=== PATIENT | female | born 1955 | race African-American/Black ===

== ENCOUNTER 2023-01-11 22:31 | Emergency (ER) | payer OTHER, MEDICARE ==
[2023-01-11] MEDS ORDERED: NA CHLORIDE 0.9% 1,000 ML ONE (23:19)
[2023-01-11] MEDS ORDERED: ONDANSETRON 4 MG/2 ML VIAL ONE (23:19)
[2023-01-11] MEDS ORDERED: PANTOPRAZOLE 40 MG INJ ONE (23:30)
[2023-01-11 23:40] LABS: Absolute Lymphocytes (CBC) 0.3 K/uL (0.7-4.9); Hematocrit 42.8 % (36.0-45.0); Lymphocytes % 3.6 % (15.3-44.8); MCV 96.1 fL (80-100); Protime INR 0.98; RBC Red Blood Cell Count 4.45 M/uL (3.86-4.86)
[2023-01-11 23:56] LABS: Urine Bacteria None Seen /HPF (<20); Urine Bilirubin NEGATIVE (Negative); Urine Blood Negative (Negative); Urine Clarity Extremely Turbid (Clear); Urine Color Light-Yellow (Yellow); Urine Glucose NEGATIVE (Negative); Urine Mucus Slight /HPF (None Seen); Urine Protein 1+ (Negative); Urine RBC None Seen /HPF (None Seen); Urine Urobilinogen Normal (Normal); Urine pH 5.5 (5.0-7.0)
[2023-01-11 23:58] LABS: Albumin 3.4 g/dL (3.4-5.0); Bilirubin Direct 0.2 mg/dL (0-0.2); Bilirubin Indirect, Calculated 0.3 mg/dL (0.2-0.8); Bilirubin Total 0.5 mg/dL (0.2-1.0); Potassium 4.1 mEq/L (3.5-5.1); Protein, Total 8.2 g/dL (6.4-8.2); Troponin High Sensitivity 4.6 pg/mL (<58.9)
[2023-01-12 01:07] LABS: Blood Morphology Comment NOT SEEN (NOT SEEN); Platelet Estimate ADEQ
--- NOTE | 2023-01-12 01:27 | ER ---
Nurse's Notes [facility] Name: Marlyn Christy Age: 67 yrs Sex: Female : 1955 Arrival Date: 01/11/2023 Time: 22:31 Bed 5 Private MD: Diagnosis: Vomiting;Diarrhea, unspecified;Obesity, unspecified;Bandemia Presentation: 01/11 22:52 Chief complaint: Patient states: I haven't been able to hold anything down. I have been kd3 vomiting since this morning. I do not have any abdominal pain. I have had diarrhea twice today. I am not sure if i ate something bad yesterday. Coronavirus screen: Vaccine status: Patient reports receiving the 2nd dose of the covid vaccine. Ebola Screen: No symptoms or risks identified at this time. Initial Sepsis Screen: Does the patient meet any 2 criteria? No. Patient's initial sepsis screen is negative. Does the patient have a suspected source of infection? No. Patient's initial sepsis screen is negative. Risk Assessment: Do you want to hurt yourself or someone else? Patient reports no desire to harm self or others. Onset of symptoms was January 11, 2023. 22:52 Method Of Arrival: Ambulatory kd3 22:52 Acuity: BRITANY 3 kd3 Triage Assessment: 22:54 General: Appears uncomfortable, Behavior is calm, cooperative. Pain: Denies pain. GI: kd3 Reports diarrhea, nausea, vomiting, since yesterday. Historical: - Allergies: 22:54 Atenolol; kd3 22:54 Aspirin; kd3 22:54 bismuth subsalicylate; kd3 22:54 Hydrocodone-Acetaminophen; kd3 22:54 isradipine; kd3 22:54 METOCLOPRAMIDE; kd3 22:54 Niacin; kd3 22:54 Sulfa (Sulfonamide Antibiotics); kd3 22:54 Tramadol HCl; kd3 22:54 Triamterene; kd3 22:54 Verapamil; kd3 22:54 Ibuprofen; kd3 22:54 PENICILLINS; kd3 22:54 sulfamethoxazole-trimethoprim; kd3 - PMHx: 23:33 Aneurysm; rv - Immunization history:: Adult Immunizations up to date. - Social history:: Smoking status: Patient denies any tobacco usage or history of. Screenin:30 [facility] ED Fall Risk Assessment (Adult) History of falling in the last 3 months, rv including since admission No falls in past 3 months (0 pts) Confusion or Disorientation No (0 pts) Intoxicated or Sedated No (0 pts) Impaired Gait No (0 pts) Mobility Assist Device Used No (0 pt) Altered Elimination No (0 pt) Score/Fall Risk Level 0 - 2 = Low Risk Oriented to surroundings, Maintained a safe environment, Educated pt \T\ family on fall prevention, incl call for assistance when getting out of bed, Assessed \T\ reinforced patient's understanding of fall precautions, Provided non-skid footwear, Hourly rounding (assess needs \T\ fall precautionary measures) done, Used ambulatory aids as needed (educated on \T\ assisted with), Used gait belt as appropriate. Abuse screen: Denies threats or abuse. Denies injuries from another. Nutritional screening: No deficits noted. Tuberculosis screening: No symptoms or risk factors identified. Assessment: 23:31 GI: Abdomen is round non-distended. rv Vital Signs: 22:50 BP 153 / 91; Pulse 116; Resp 19; Temp 99.9(O); Pulse Ox 98% on R/A; Weight 113.4 kg; kd3 Height 5 ft. 4 in. ; 23:29 BP 121 / 81; Pulse 96; Resp 16; Pulse Ox 96% on R/A; rv 07/ 00:20 BP 128 / 68; Pulse 88; Resp 18; Pulse Ox 97% ; ll3 01:30 BP 135 / 69; Pulse 85; Resp 20; Pulse Ox 98% on R/A; ll3 01/11 22:50 Body Mass Index 42.91 (113.40 kg, 162.56 cm) kd3 ED Course: 01/11 22:36 Patient arrived in ED. kj1 22:54 Triage completed. kd3 22:54 Arm band placed on right wrist. kd3 22:55 No provider procedures requiring assistance completed. Inserted saline lock: 20 gauge rv in right antecubital area, using aseptic technique. Blood collected. 22:59 Avery Alcazar MD is Attending Physician. gisselle 23:06 Sami Ward RN is Primary Nurse. rv 23:29 Basic Metabolic Panel Sent. rv 23:29 CBC with Diff Sent. rv 23:29 LFT's Sent. rv 23:29 Magnesium Sent. rv 23:29 NT PRO-BNP Sent. rv 23:29 PT-INR Sent. rv 23:29 Troponin HS Sent. rv 23:30 Patient has correct armband on for positive identification. Bed in low position. Call rv light in reach. Side rails up X 1. Client placed on continuous cardiac and pulse oximetry monitoring. NIBP monitoring applied. awake overnight monitor on. 01/12 00:25 Abdomen Acute Series XRAY In Process Unspecified. EDMS 01:25 Link Love MD is Referral Physician. gisselle 03:11 IV discontinued, intact, bleeding controlled, No redness/swelling at site. Pressure ll3 dressing applied. Administered Medications: 01/11 23:28 Drug: Ondansetron IVP 8 mg Route: IVP; Site: right antecubital; rv 01/12 03:08 Follow up: Response: No adverse reaction ll3 01/11 23:29 Drug: NS 0.9% IV 1000 ml Route: IV; Rate: 1 bolus; Site: right antecubital; rv 01/12 03:10 Follow up: Response: No adverse reaction; IV Status: Completed infusion; IV Intake: ll3 1000ml 01/11 23:29 Not Given (NOT AVAILABLEe): Famotidine IVP 20 mg IVP once; dilute with 10 mL 0.9% NaCl; rv give over 2 minutes 23:29 Drug: Pantoprazole IVP 40 mg Route: IVP; Site: right antecubital; rv 01/12 03:08 Follow up: Response: No adverse reaction ll3 01:32 Drug: NS 0.9% IV 1000 ml Route: IV; Rate: 1 bolus; Site: right antecubital; rv 03:08 Follow up: Response: No adverse reaction; IV Status: Completed infusion; IV Intake: ll3 1000ml Medication: 01/11 23:30 VIS not applicable for this client. rv Intake: 01/12 03:08 IV: 1000ml; Total: 1000ml. ll3 03:10 IV: 1000ml; Total: 2000ml. ll3 Outcome: 01:26 Discharge ordered by . gisselle 03:11 Discharged to home ambulatory, with family. ll3 03:11 Condition: stable 03:11 Discharge instructions given to patient, family, Instructed on discharge instructions, follow up and referral plans. medication usage, Demonstrated understanding of instructions, follow-up care, medications, Prescriptions given X 2. 03:13 Patient left the ED. ll3 Signatures: Dispatcher [employer] EDMS Avery Alcazar MD MD cha Vicente, Ronaldo, RN RN Lori Otero1 Teresa Edouard RN RN ll3 Gisel Camacho RN RN kd3
--- NOTE | 2023-01-12 01:27 | EDPHYS ---
Physician Documentation [facility] Name: Marlyn Christy Age: 67 yrs Sex: Female : 1955 Arrival Date: 01/11/2023 Time: 22:31 Bed 5 Private MD: JONO Physician Avery Alcazar HPI: 01/12 01:22 This 67 yrs old Black Female presents to ER via Ambulatory with complaints of gisselle Nausea/Vomiting. 01:22 The patient presents to the emergency department with nausea, vomiting, diarrhea, that gisselle is intermittent. Onset: The symptoms/episode began/occurred 1 day(s) ago. Possible causes: unknown. The symptoms are aggravated by food , The symptoms are alleviated by nothing. Associated signs and symptoms: Pertinent positives: diarrhea, nausea, vomiting. Severity of symptoms: At their worst the symptoms were mild moderate in the emergency department the symptoms have improved mildly. The patient has experienced similar episodes in the past, a few times. Historical: - Allergies: 01/11 22:54 Atenolol; kd3 22:54 Aspirin; kd3 22:54 bismuth subsalicylate; kd3 22:54 Hydrocodone-Acetaminophen; kd3 22:54 isradipine; kd3 22:54 METOCLOPRAMIDE; kd3 22:54 Niacin; kd3 22:54 Sulfa (Sulfonamide Antibiotics); kd3 22:54 Tramadol HCl; kd3 22:54 Triamterene; kd3 22:54 Verapamil; kd3 22:54 Ibuprofen; kd3 22:54 PENICILLINS; kd3 22:54 sulfamethoxazole-trimethoprim; kd3 - PMHx: 23:33 Aneurysm; rv - Immunization history:: Adult Immunizations up to date. - Social history:: Smoking status: Patient denies any tobacco usage or history of. ROS: 01/12 01:23 Constitutional: Negative for fever, chills, and weight loss, Eyes: Negative for injury, gisselle pain, redness, and discharge, ENT: Negative for injury, pain, and discharge, Neck: Negative for injury, pain, and swelling, Cardiovascular: Negative for chest pain, palpitations, and edema, Respiratory: Negative for shortness of breath, cough, wheezing, and pleuritic chest pain, Back: Negative for injury and pain, : Negative for injury, bleeding, discharge, and swelling, MS/Extremity: Negative for injury and deformity, Skin: Negative for injury, rash, and discoloration, Neuro: Negative for headache, weakness, numbness, tingling, and seizure, Psych: Negative for depression, anxiety, suicide ideation, homicidal ideation, and hallucinations, Allergy/Immunology: Negative for hives, rash, and allergies, Endocrine: Negative for neck swelling, polydipsia, polyuria, polyphagia, and marked weight changes, Hematologic/Lymphatic: Negative for swollen nodes, abnormal bleeding, and unusual bruising. Abdomen/GI: Positive for nausea and vomiting, diarrhea. Exam: : Constitutional: This is a well developed, well nourished patient who is awake, alert, gisselle and in no acute distress. Head/Face: Normocephalic, atraumatic. Eyes: Pupils equal round and reactive to light, extra-ocular motions intact. Lids and lashes normal. Conjunctiva and sclera are non-icteric and not injected. Cornea within normal limits. Periorbital areas with no swelling, redness, or edema. ENT: Nares patent. No nasal discharge, no septal abnormalities noted. Tympanic membranes are normal and external auditory canals are clear. Oropharynx with no redness, swelling, or masses, exudates, or evidence of obstruction, uvula midline. Mucous membranes moist. Neck: Trachea midline, no thyromegaly or masses palpated, and no cervical lymphadenopathy. Supple, full range of motion without nuchal rigidity, or vertebral point tenderness. No Meningismus. Chest/axilla: Normal chest wall appearance and motion. Nontender with no deformity. No lesions are appreciated. Cardiovascular: Regular rate and rhythm with a normal S1 and S2. No gallops, murmurs, or rubs. Normal PMI, no JVD. No pulse deficits. Respiratory: Lungs have equal breath sounds bilaterally, clear to auscultation and percussion. No rales, rhonchi or wheezes noted. No increased work of breathing, no retractions or nasal flaring. Abdomen/GI: Soft, non-tender, with normal bowel sounds. No distension or tympany. No guarding or rebound. No evidence of tenderness throughout. Back: No spinal tenderness. No costovertebral tenderness. Full range of motion. Female : Normal external genitalia. Skin: Warm, dry with normal turgor. Normal color with no rashes, no lesions, and no evidence of cellulitis. MS/ Extremity: Pulses equal, no cyanosis. Neurovascular intact. Full, normal range of motion. Neuro: Awake and alert, GCS 15, oriented to person, place, time, and situation. Cranial nerves II-XII grossly intact. Motor strength 5/5 in all extremities. Sensory grossly intact. Cerebellar exam normal. Normal gait. Psych: Awake, alert, with orientation to person, place and time. Behavior, mood, and affect are within normal limits. 01:23 ECG was reviewed by the Attending Physician. Vital Signs: 01/11 22:50 BP 153 / 91; Pulse 116; Resp 19; Temp 99.9(O); Pulse Ox 98% on R/A; Weight 113.4 kg; kd3 Height 5 ft. 4 in. ; 23:29 BP 121 / 81; Pulse 96; Resp 16; Pulse Ox 96% on R/A; rv 01/12 00:20 BP 128 / 68; Pulse 88; Resp 18; Pulse Ox 97% ; ll3 01:30 BP 135 / 69; Pulse 85; Resp 20; Pulse Ox 98% on R/A; ll3 01/11 22:50 Body Mass Index 42.91 (113.40 kg, 162.56 cm) kd3 MDM: 01/11 22:59 Patient medically screened. [facility] 01/11 23:03 Order name: Basic Metabolic Panel; Complete Time: 01:20 gisselle 01/11 23:03 Order name: CBC with Diff; Complete Time: 01:20 [facility] 01/11 23:03 Order name: LFT's; Complete Time: 01:20 [facility] 01/11 23:03 Order name: Magnesium; Complete Time: 01:20 [facility] 01/11 23:03 Order name: NT PRO-BNP; Complete Time: 01:20 gisselle 01/11 23:03 Order name: PT-INR; Complete Time: 01:20 gisselle 01/11 23:03 Order name: Troponin HS; Complete Time: :20 [facility] 01/11 23:03 Order name: Lipase; Complete Time: 01:20 gisselle 01/11 23:03 Order name: Urinalysis w/ reflexes; Complete Time: 01:20 gisselle 01/11 23:55 Order name: Manual Differential; Complete Time: 01:20 EDMS 01/11 23:03 Order name: Abdomen Acute Series XRAY [facility] 01/11 23:03 Order name: EKG; Complete Time: : [facility] 01/11 23:03 Order name: Cardiac monitoring; Complete Time: : [facility] 01/11 23:03 Order name: EKG - Nurse/Tech; Complete Time: : [facility] 01/11 23:03 Order name: IV Saline Lock; Complete Time: : [facility] 01/11 23:03 Order name: Labs collected and sent; Complete Time: : [facility] 01/11 23:03 Order name: O2 Per Protocol; Complete Time: : [facility] 01/11 23:03 Order name: O2 Sat Monitoring; Complete Time: : [facility] 01/12 01:22 Order name: PO challenge; Complete Time: [facility] EC/03 01:23 Rate is 103 beats/min. Rhythm is regular. QRS [place] is Normal. ND interval is normal. gisselle QRS interval is normal. QT interval is normal. No Q waves. T waves are Normal. No ST changes noted. Clinical impression: Sinus tachycardia. Interpreted by me. Reviewed by me. Administered Medications: 01/11 23:28 Drug: Ondansetron IVP 8 mg Route: IVP; Site: right antecubital; rv 01/12 03:08 Follow up: Response: No adverse reaction 3 01/11 23:29 Drug: NS 0.9% IV 1000 ml Route: IV; Rate: 1 bolus; Site: right antecubital; rv 01/12 03:10 Follow up: Response: No adverse reaction; IV Status: Completed infusion; IV Intake: ll3 1000ml 01/11 23:29 Not Given (NOT AVAILABLEe): Famotidine IVP 20 mg IVP once; dilute with 10 mL 0.9% NaCl; rv give over 2 minutes 23:29 Drug: Pantoprazole IVP 40 mg Route: IVP; Site: right antecubital; rv 01/12 03:08 Follow up: Response: No adverse reaction ll3 01:32 Drug: NS 0.9% IV 1000 ml Route: IV; Rate: 1 bolus; Site: right antecubital; rv 03:08 Follow up: Response: No adverse reaction; IV Status: Completed infusion; IV Intake: ll3 1000ml Disposition Summary: 01/12/23 01:26 Discharge Ordered Location: Home gisselle Problem: new gisselle Symptoms: have improved gisselle Condition: Stable [facility] Diagnosis - Vomiting gisselle - Diarrhea, unspecified gisselle - Obesity, unspecified gisselle - Bandemia gisselle Followup: gisselle - With: Private Physician - When: 2 - 3 days - Reason: Recheck today's complaints, Continuance of care, Re-evaluation by your physician Followup: gisselle - With: Link Love MD - When: 2 - 3 days - Reason: Recheck today's complaints, Re-evaluation by your physician Discharge Instructions: - Discharge Summary Sheet [facility] - Food Choices to Help Relieve Diarrhea, Adult gisselle - Diarrhea, Adult gisselle - Obesity, Adult gisselle - Obesity, Adult, [id number] gisselle - Vomiting, Adult [facility] Forms: - Medication Reconciliation Form [facility] - Thank You Letter [facility] - Antibiotic Education [facility] - Prescription Opioid Use [facility] - [email or web address] [facility] Prescriptions: - ondansetron 4 mg Oral Tablet,disintegrating - take 1 tablet by ORAL route 4 times per day for 5 days; 20 tablet; Refills: 0, [facility] Product Selection Permitted - promethazine 25 mg Oral Tablet - take 1 tablet by ORAL route every 6 hours As needed; 20 tablet; Refills: 0, [facility] Product Selection Permitted Signatures: Dispatcher [employer] Avery Petty MD MD cha Vicente, Ronaldo RN RN Gisel Marquez RN RN kd3 Teresa Edouard RN ll3
[2023-01-12] MEDS ORDERED: NA CHLORIDE 0.9% 1,000 ML ONE (01:37)
[2023-01-12 03:37] VITALS: TEMP 99.9
[2023-01-12 03:54] VITALS: BP 135/69; O2SAT 98
--- NOTE | 2023-01-12 12:05 | RAD REPORT ---
EXAM DESCRIPTION: RAD - Abdomen Acute Series - 01/12/2023 12:23 am CLINICAL HISTORY: The patient is 67 years old and is Female; ABDOMINAL DISTENTION TECHNIQUE: Frontal view of the chest, frontal view of the abdomen/pelvis and upright or decubitus vi ew of the abdomen. COMPARISON: No relevant prior studies available. FINDINGS: LIMITATIONS: Suboptimal study secondary to artifact related to patient body habitus. LUNGS: Unremarkable. No consolidation. PLEURAL SPACE: Unremarkable. No pneumothorax. HEART: Unremarkable. No cardiomegaly. MEDIASTINUM: Unremarkable. INTRAPERITONEAL SPACE: No free air. GASTROINTESTINAL TRACT: The bowel gas pattern is nonobstructive. No dilated loops of bowel are se en. Distal air is present. BONES/JOINTS: There are degenerative changes of the bones. IMPRESSION: 1. No acute cardiopulmonary process. 2. Nonobstructive, nonspecific bowel gas pattern. Electronically signed by: Brunilda Blackmon MD 01/12/2023 12:33 AM CDT Due to temporary technical issues with the PACS/Fluency reporting system, reports are being signed by the in house radiologist without review as a courtesy to ensure prompt reporting. The interpreting r adiologist is fully responsible for the content of the report.
--- NOTE | 2023-01-12 19:30 | EKG ---
Test Date: 2023-01-11 Test Time: 23:18:48 Manager Transit: DIVYA MEASUREMENT RESULTS: Intervals: Rate: 103 DC: 162 QRSD: 82 QT: 344 QTc: 450 [place]: P: 35 DC: 162 QRS: -35 T: 50 INTERPRETIVE STATEMENTS: Sinus tachycardia Left axis deviation Abnormal ECG No previous ECG available for comparison Electronically Signed On 01-12-23 19:28:33 CDT by James Montes
== END 2023-01-12 03:13 | disposition home or self-care (01) ==
LOC: ER 22:31
DX: R19.7 Diarrhea, unspecified (principal); D72.825 Bandemia; E66.9 Obesity, unspecified; Z88.0 Allergy status to penicillin; Z88.1 Allergy status to other antibiotic agents; Z88.2 Allergy status to sulfonamides; Z88.5 Allergy status to narcotic agent; Z88.6 Allergy status to analgesic agent; Z88.8 Allergy status to other drugs, medicaments and biological substances
CPT/HCPCS: 96361; 93005; 85025; 81001; 80048; 36415; 83735; 85610; 80076; 84484; 83690; 83880; 74022; 96375; 96374; 99285; C9113; J2405; J7030 ×2

== ENCOUNTER 2024-04-18 13:49 | Observation (INO) | payer OTHER, MEDICARE ==
--- OUTSIDE RECORDS SUMMARY | 2024-04-18 13:53 | XMS REPORT | Continuity of Care Document ---
Author Name Unknown Address [address] [facility] [address] [place] [address] [facility] thconnect Address [address] [facility] [address] [place] [address] Care Team Providers Care Marketing Finance Manager Name Role Phone No MD, Pcp Primary Care Physician ARMIN Thacker Attending Clinician SURINDER Bright Attending Clinician JESSE Gambino Attending Clinician Brenda walker Payers Payer Name Policy Type Policy Number Effective Date Expirati on Date Source MEDICARE PART A AND B [id number] 2018 00:00:00 MEDICARE-PART B 5 [id number] 2023 00:00:00 [employer]/[place] 4 [id number] 2022 00:00:00 Allergies, Adverse Reactions, Alerts Allergy Name Allergy Type Status Severity Reaction(s) Onset Date Inactive Date Treating Clinician Comments Source Hydrocod one-Acet aminophe n Propensi ty to adverse reaction s Active Hives 11-17 00:00: 00 Sari Seybold - Externa l Ibuprofe n Propensi ty to adverse reaction s Active 11-17 00:00: 00 Sari Seybold - Externa l Isradipi ne Propensi ty to adverse reaction s Active 11-17 00:00: 00 Sari Seybold - Externa l Metoclop ramide Propensi ty to adverse reaction s Active 11-17 00:00: 00 Sari Seybold - Externa l Niacin And Related Propensi ty to adverse reaction s Active 11-17 00:00: 00 Sari Boland - Externa l Penicill ins Propensi ty to adverse reaction s Active 11-17 00:00: 00 Sari Boland - Externa l Sulfa Drugs Propensi ty to adverse reaction s Active 11-17 00:00: 00 Sari Boland - Externa l Sulfamet hoxazole -Trimeth oprim Propensi ty to adverse reaction s Active 11-17 00:00: 00 Sari Mitchell Externa l Tramadol Propensi ty to adverse reaction s Active 11-17 00:00: 00 Sari Boland - Externa l Triamter amrita Propensi ty to adverse reaction s Active 11-17 00:00: 00 Sari Boland - Externa omar Verapami l Propensi ty to adverse reaction s Active 11-17 00:00: 00 Sari Mitchell Externa l Aspirin Propensi ty to adverse reaction s Active Hives 11-17 00:00: 00 Sari Mitchell Externa l Atenolol Propensi ty to adverse reaction s Active Hiv11-17 00:00: 00 Sari Mitchell Externa l Bismuth Subsalic ylate Propensi ty to adverse reaction s Active Hiv11-17 00:00: 00 Sari Hughesa l Metronid -Tetracy c-Bis Subsal Propensi ty to adverse reaction s Active Hives 08-28 00:00: 00 [facility] Sulfa Antibiot ics Propensi ty to adverse reaction s Active Hives 08-28 00:00: 00 [facility] Acetamin ophen-Co deine Drug Allergy Active Unknown 07-15 00:00: 00 [place] lighthead ed after taking on an empty stomach [facility] Atenolol Allergy to substanc e Active Hives 07-15 00:00: 00 [facility] Bismuth Allergy to substanc e Active Hives 07-15 00:00: 00 [facility] Bismuth Subsalic ylate Allergy to substanc e Active Hives 07-15 00:00: 00 [facility] Hydrocod one-Acet aminophe n Drug Allergy Active Hives 07-15 00:00: 00 [facility] Metoclop ramide Allergy to substanc e Active Unknown 07-15 00:00: 00 [place] shaky [facility] Metronid azole Allergy to substanc e Active Hives 07-15 00:00: 00 [facility] Niacin Allergy to substanc e Active Rash 07-15 00:00: 00 [facility] Sulfate Allergy to substanc e Active Hives 07-15 00:00: 00 [facility] Tetracyc line Allergy to substanc e Active Hives 07-15 00:00: 00 [facility] Triamter amrita Allergy to substanc e Active Unknown 07-15 00:00: 00 Other Reaction( s): Faint Feeling Pruritis as well [facility] Verapami l Allergy to substanc e Active Anaphylaxis 07-15 00:00: 00 Tender gums [facility] Rudy Inhibito rs Allergy to substanc e Active Rash 07-15 00:00: 00 [facility] Aspirin Allergy to substanc e Active Hives 04-06 00:00: 00 [facility] Ibuprofe n Propensi ty to adverse reaction s Active Hives 04-06 00:00: 00 [facility] Isradipi ne Allergy to substanc e Active Hives 04-06 00:00: 00 [facility] Penicill ins Propensi ty to adverse reaction s Active Hives 04-06 00:00: 00 [facility] Sulfamet hoxazole -Trimeth oprim Propensi ty to adverse reaction s Active Hives 04-06 00:00: 00 [facility] Social History Social Habit Start Date Stop Date Quantity Comments Source Sexual orientation Gregory Boland - External Alcoholic beverage intake 2023-11-18 00:00:00 2023-11-18 00:00:00 Lifetime non-drinker (finding) Sari Boland - External History of Social function 2023-11-18 00:00:00 2023-11-18 00:00:00 Sari Boland - External Tobacco use and exposure 2023-03-24 00:00:00 2023-03-24 00:00:00 Smokeless tobacco non-user [facility] Alcohol intake 2023-03-24 00:00:00 2023-03-24 00:00:00 Ex-drinker (finding) [facility] Sex assigned at 1955 00:00:00 1955 00:00:00 Sari Yusuf Smoking Status Start Date Stop Date Source Never smoked tobacco Sari Mitchell External Medications Ordered Medication Name Filled Medication Name Start Date Stop Date Current Medication? Ordering Clinician Indication Dosage Frequency Signature (SIG) Comments Components Source Atorvastati n Calcium 10 MG oral Tablet 11-17 08:49: 46 Yes 10mg Take 1 tablet (10 mg total) by mouth at bedtime. Sari nelson Allopurinol 100 MG oral Tablet 11-17 08:49: 46 Yes 200mg Take 2 tablets (200 mg total) by mouth daily. Sari nelson Cholecalcif nitesh (Vitamin D3) 50 MCG (1999) oral Capsule 11-17 08:49: 46 Yes Take by mouth. Sari nelson Losartan Potassium (COZAAR) 100 MG oral Tablet 11-17 08:49: 46 Yes 100mg Take 1 tablet (100 mg total) by mouth daily. Sari nelson Omeprazole 10 MG oral Delayed Release Capsule 11-17 08:49: 46 Yes 10mg Take 1 capsule (10 mg total) by mouth daily. Sari nelson Isosorbide Mononitrate CR 30 MG oral TABLET SR 24 HR 11-16 00:00: 00 Yes Sari nelson Brimonidine Tartrate 0.2 % ophthalmic Solution 11-12 00:00: 00 Yes 1[drp] Place 1 drop into both eyes every 12 hours. Sari nelson prednisoLON E Acetate 1 % ophthalmic Suspension 11-12 00:00: 00 Yes INSTILL 1 DROP INTO RIGHT EYE TWICE A WEEK Sari nelson Amlodipine Besylate 10 MG oral Tablet 10-17 00:00: 00 Yes 10mg Take 1 tablet (10 mg total) by mouth daily. Sari nelson Famotidine (PEPCID) 20 MG oral tablet - 00:00: 00 Yes 20mg Take 1 tablet (20 mg total) by mouth 2 times daily. Sari nelson Furosemide 40 MG oral Tablet 09-16 00:00: 00 Yes TAKE 1 TABLET BY MOUTH EVERY DAY NEEDED FOR LEG SWELLING Sari nelson Potassium Chloride Irma ER 20 MEQ oral Tab CR tablet 08-29 00:00: 00 Yes TAKE 1 TABLET BY MOUTH DAILY NEEDED WITH FUROSEMIDE Sari nelson allopurinol (Zyloprim) 100 MG tablet 01-09 00:00: 00 Yes [facility] atorvastati n (Lipitor) 10 MG tablet 01-09 00:00: 00 Yes [facility] Vital Signs Vital Name Observation Time Observation Value Comments S ource Systolic blood pressure 2023-11-18 13:44:00 141 mm[Hg] Sari ballard - External Diastolic blood pressure 2023-11-18 13:44:00 87 mm[Hg] Sari ballard - External Heart rate 2023-11-18 13:44:00 81 /min Nestor Boland - External Body temperature 2023-11-18 13:44:00 36.33 Cara Sari Boland - External Respiratory rate 2023-11-18 13:44:00 16 /min Sari Boland - External Body height 2023-11-18 13:44:00 162.6 cm Orly Boland - External Body weight 2023-11-18 13:44:00 119.477 kg Orly Boland - External BMI 2023-11-18 13:44:00 45.21 kg/m2 Orly Boland - External Oxygen saturation in Arterial blood by Pulse oximetry 2023-11-18 13:44:00 97 /min Sari Mcallister ld - External Systolic blood pressure 2023-03-24 16:12:00 130 mm[Hg] [facility] Diastolic blood pressure 2023-03-24 16:12:00 83 mm[Hg] [facility] Heart rate 2023-03-24 16:12:00 74 /min [facility] Body temperature 2023-03-24 16:12:00 36.5 Cara [facility] Body height 2023-03-24 16:12:00 162.6 cm [facility] Body weight 2023-03-24 16:12:00 119.75 kg [facility] BMI 2023-03-24 16:12:00 45.32 kg/m2 [facility] Encounters Start Date/Time End Date/Time Encounter Type Admission Type Attending [facility] Care Department Encounter ID Source 2023-02-10 12:55:12 Outpatient [facility] [id number] [facility] 2023-02-09 10:30:45 Outpatient [facility] [id number] [facility] 2023-01-20 09:51:31 Outpatient [facility] [id number] [facility] 2023-01-06 14:06:59 Outpatient [facility] [id number] [facility] 2024-11-16 10:30:00 2024-11-16 10:30:00 Outpatient ARMIN NORWOOD [id number] [facility] 2023-11-18 08:30:00 2023-11-18 08:30:00 Outpatient ARMIN NORWOOD [id number] [facility] 2023 16:20:00 2023 16:20:00 Outpatient SARI EDUARDO [id number] [facility] 2023 00:00:00 2023 00:00:00 Outpatient ARMIN NORWOOD [id number] [facility] 2023-09-15 13:30:00 2023-09-15 13:30:00 Outpatient SURINDER REYNOSO [id number] [facility] 2023-03-24 11:30:00 2023-03-24 11:30:00 Office Visit JESSE REECE [facility] [address] [facility] [address] [id number] [facility] 2023-02-17 10:00:00 2023-02-17 10:00:00 Outpatient JESSE REECE [facility] [id number] [facility] Notes Date/Time Note Provider Source 2023-11-18 08:50:55 Chief Complaint Patient presents with Consultation Pt has 2 aneurysms Height 5'4 per pt TIMUR Singh T [facility]
--- NOTE | 2024-04-18 15:02 | RAD REPORT ---
EXAMINATION: ONE VIEW CHEST XR CLINICAL INDICATION: Female, 68 years old.ABDOMINAL DISTENTION TECHNIQUE: 1 View, AP supine, X-ray of the chest was performed. [id number]. COMPARISON: 12/28/2023 FINDINGS: Lungs and pleura: Clear lungs. No effusion. Heart and mediastinum: Normal heart size. Unremarkable mediastinal contours. Osseous structures: No acute abnormality. Tubes/lines: None Other: None. IMPRESSION: No acute intrathoracic abnormality.
[2024-04-18 15:24] LABS: Specific Gravity 1.017 (1.005-1.030); Sqamous Epithelial <5 /HPF (None Seen); Urine Bacteria <20 /HPF (<20); Urine Bilirubin NEGATIVE (Negative); Urine Blood Negative (Negative); Urine Clarity Turbid (Clear); Urine Color Light-Yellow (Yellow); Urine Culture Reflex Order NOT NEEDED; Urine Glucose NEGATIVE (Negative); Urine Ketones TRACE (Negative); Urine Microscopic Reflex YN ORDER UMIC; Urine Mucus 1+ /HPF (None Seen); Urine Nitrite NEGATIVE (Negative); Urine Protein NEGATIVE (Negative); Urine RBC <5 /HPF (None Seen); Urine Urobilinogen Normal (Normal); Urine WBC <5 /HPF (<5)
[2024-04-18] MEDS ORDERED: NA CHLORIDE 0.9% 1,000 ML ONE (15:59)
[2024-04-18 16:21] LABS: Absolute Eosinophils 0.1 K/uL (0-0.5); Absolute Lymphocytes (CBC) 1.6 K/uL (0.7-4.9); Absolute Monocytes 0.4 K/uL (0.1-1.3); Absolute Neutrophil 3.2 K/uL (1.8-8.0); Basophils % 0.4 % (0-1.3); Eosinophils % 1.3 % (0-4.4); Hematocrit 40.8 % (36.0-45.0); Hemoglobin 13.8 g/dL (12.0-15.0); Lymphocytes % 30.8 % (15.3-44.8); MCH 32.6 pg (27.0-35.0); MCHC 33.9 g/dL (32.0-36.0); MCV 96.3 fL (80-100); MPV 8.7 fL (7.6-11.3); Monocytes % 6.6 % (3.3-12.3); Neutrophils % 60.9 % (41.7-73.7); Nucleated Red Blood Cells % 0.1 % (0-0); Platelets 221 thou/uL (152-406); RBC Red Blood Cell Count 4.24 M/uL (3.86-4.86); Red Cell Distribution Width 15.6 % (12.1-15.2)
[2024-04-18 16:24] LABS: PT Prothrombin Time 12.1 SECONDS (9.4-12.5); Protime INR 1.08
--- NOTE | 2024-04-18 16:37 | ER ---
Nurse's Notes [facility] Name: Marlyn Christy Age: 68 yrs Sex: Female : 1955 Arrival Date: 04/18/2024 Time: 13:49 Bed 15 Private MD: Diagnosis: Diarrhea, unspecified;Abdominal pain, Generalized;Obesity, unspecified;UTI/ Urinary tract infection, site not specified Presentation: 04/18 14:30 Chief complaint: Patient states: Treated for UTI and Diverticulitis last week and cm10 yesterday morning pt started having diarrhea and nausea. Pt states that she is still having abdominal cramping. Pt currently taking ABX. Coronavirus screen: Client denies travel out of the [place] in the last 14 days. Ebola Screen: Patient denies travel to an Ebola-affected area in the 21 days before illness onset. No symptoms or risks identified at this time. Initial Sepsis Screen: Does the patient meet any 2 criteria? No. Patient's initial sepsis screen is negative. Does the patient have a suspected source of infection? No. Patient's initial sepsis screen is negative. Risk Assessment: Do you want to hurt yourself or someone else? Patient reports no desire to harm self or others. Onset of symptoms was April 17, 2024. 14:30 Method Of Arrival: Ambulatory cm10 14:30 Acuity: BRITANY 3 cm10 Triage Assessment: 14:37 General: Appears in no apparent distress. comfortable, Behavior is calm, cooperative. cm10 Pain: Complains of pain in abdomen Pain currently is 3 out of 10 on a pain scale. Quality of pain is described as crampy. Neuro: No deficits noted. Level of Consciousness is awake, alert, obeys commands, Oriented to person, place, time, situation, Appropriate for age. Respiratory: No deficits noted. Airway is patent Respiratory effort is even, unlabored, Respiratory pattern is regular, symmetrical. GI: Reports lower abdominal pain, cramping, diarrhea. Historical: - Allergies: 14:32 Atenolol; cm10 14:32 bismuth subsalicylate; cm10 14:32 Hydrocodone-Acetaminophen; cm10 14:32 Ibuprofen; cm10 14:32 isradipine; cm10 14:32 Metoclopramide; cm10 14:32 Niacin; cm10 14:32 PENICILLINS; cm10 14:32 Sulfa (Sulfonamide Antibiotics); cm10 14:32 sulfamethoxazole-trimethoprim; cm10 14:32 Tramadol HCl; cm10 14:32 Triamterene; cm10 14:32 Verapamil; cm10 14:32 Aspirin; cm10 - Home Meds: 14:32 allopurinol 100 mg oral tablet 2 tabs daily [Active]; amlodipine 10 mg tablet 1 tab cm10 daily [Active]; atorvastatin 40 mg oral tablet 1 tab every day at bedtime [Active]; brimonidine 0.2 % ophthalmic (eye) drops [Active]; furosemide 40 mg Oral tablet 1 tab as needed [Active]; isosorbide mononitrate 30 mg Oral Tablet, Extended Release 24 hr 1 tab daily [Active]; losartan 100 mg oral tablet 1 tab daily [Active]; omeprazole 10 mg Oral capsule,delayed release (e.c.) 1 caps daily [Active]; potassium chloride 20 mEq Oral tablet, extended release 1 tab [Active]; prednisolone acetate 1 % Opht drops, suspension [Active]; - PMHx: 14:32 Aneurysm; Gastroesophageal reflux disease; Gout; High Cholesterol; Hypertensive cm10 disorder; Diverticulitis; - PSHx: 14:32 cataract; cm10 - Immunization history:: Adult Immunizations up to date. - Infectious Disease History:: Denies. - Social history:: Smoking status: Patient denies any tobacco usage or history of. - Family history:: not pertinent. Screenin:49 [facility] ED Fall Risk Assessment (Adult) History of falling in the last 3 months, db including since admission No falls in past 3 months (0 pts) Confusion or Disorientation No (0 pts) Intoxicated or Sedated No (0 pts) Impaired Gait No (0 pts) Mobility Assist Device Used No (0 pt) Altered Elimination No (0 pt) Score/Fall Risk Level 0 - 2 = Low Risk Oriented to surroundings, Maintained a safe environment. Abuse screen: Denies threats or abuse. Denies injuries from another. Nutritional screening: No deficits noted. Tuberculosis screening: No symptoms or risk factors identified. Assessment: 16:45 Reassessment: Patient appears in no apparent distress at this time. Patient and/or db family updated on plan of care and expected duration. Pain level reassessed. Patient is alert, oriented x 3, equal unlabored respirations, skin warm/dry/pink. General: Appears in no apparent distress. comfortable, Behavior is calm, cooperative. Neuro: Level of Consciousness is awake, alert, obeys commands, Oriented to person, place, time, situation. GI: Abdomen is distended, obese, Reports diarrhea. 19:05 Reassessment: Patient appears in no apparent distress at this time. Patient and/or kj2 family updated on plan of care and expected duration. Pain level reassessed. Patient is alert, oriented x 3, equal unlabored respirations, skin warm/dry/pink. REPORT RECEIVED FROM ESTRADA JAVIER. Vital Signs: 14:30 BP 152 / 98; Pulse 89; Resp 16; Temp 97.6; Pulse Ox 100% on R/A; Weight 119.29 kg; cm10 Height 5 ft. 4 in. ; Pain 3/10; 17:40 BP 140 / 89; Pulse 79; Resp 16; Temp 97.9; Pulse Ox 100% ; db 18:30 BP 117 / 54; Pulse 73; Resp 16; Pulse Ox 100% on R/A; db 19:15 BP 119 / 64; Pulse 72; Resp 18; Temp 97.9; Pulse Ox 100% on R/A; kj2 14:30 Body Mass Index 45.14 (119.29 kg, 162.56 cm) cm10 14:30 Pain Scale: Adult cm10 ED Course: 13:55 Patient arrived in ED. sj2 13:56 Avery Alcazar MD is Attending Physician. gisselle 14:16 XRAY Chest (1 view) In Process Unspecified. EDMS 14:32 Triage completed. cm10 14:38 Arm band placed on Patient placed in waiting room. cm10 15:56 Michelle Davey, ESTRADA is Primary Nurse. db 16:14 Patient has correct armband on for positive identification. Bed in low position. Call db light in reach. Side rails up X2. Client placed on continuous cardiac and pulse oximetry monitoring. NIBP monitoring applied. satellite project site monitor on. Pulse ox on. NIBP on. Warm blanket given. Pillow given. 16:15 Initial lab(s) drawn, by me, sent to lab. Inserted saline lock: 20 gauge in right db antecubital area, using aseptic technique. 16:26 EKG done. db 16:32 Link Love MD is Hospitalizing Provider. gisselle 17:00 1700 CM met with and her Isaiah at the bedside in the ED exam room. ane Patient identified by name and . Demographic sheet confirmed. Patient states she lives with her in a single story home. Prior to admission, she states she performs ADLs independently. No DME, no HH, no home oxygen or other medical services at this time. No MPOA in place. Patient's PCP is Dr. Link Love. Patient's preferred plan is to return home upon discharge and states Isaiah will transport her home. CM team will continue to follow and coordinate care during this hospital stay. 19:37 Sharda Jacobs, RN is Primary Nurse. [facility] 19:41 Provided Education on: THE NEED FOR ADMIT. [facility] 19:41 No provider procedures requiring assistance completed. Patient admitted, IV remains in kj2 place. Administered Medications: 16:15 Drug: NS 0.9% IV 1000 ml IV at 1 bolus Per protocol; 1000 mL bolus Route: IV; Rate: 1 db bolus; Site: right antecubital; 19:09 Follow up: Response: No adverse reaction; IV Status: Completed infusion db Medication: 19:40 VIS not applicable for this client. 2 Outcome: 16:36 Decision to Hospitalize by Provider. [facility] 19:42 Patient left the ED. 2 Signatures: Dispatcher [employer] EDMS Avery Alcazar MD MD cha Benton, Danielle, RN Chasity Chun RN RN cm10 Sharda Jacobs, ESTRADA DORADO kj2 Cherelle Delarosa RN RN ane [place], [facility]
--- NOTE | 2024-04-18 16:37 | EDPHYS ---
Physician Documentation [facility] Name: Marlyn Christy Age: 68 yrs Sex: Female : 1955 Arrival Date: 04/18/2024 Time: 13:49 Bed 15 Private MD: JONO Physician Avery Alcazar HPI: 04/18 16:03 This 68 yrs old Black Female presents to ER via Ambulatory with complaints of Diarrhea. gisselle 16:03 The patient presents to the emergency department with diarrhea, abdominal pain, of the gisselle right lower quadrant and left lower quadrant. Onset: The symptoms/episode began/occurred 3 day(s) ago. Possible causes: unknown. The symptoms are aggravated by nothing. The symptoms are alleviated by nothing. Associated signs and symptoms: Pertinent positives: abdominal pain, diarrhea. Severity of symptoms: At their worst the symptoms were mild in the emergency department the symptoms are unchanged. The patient has not experienced similar symptoms in the past. Historical: - Allergies: 14:32 Atenolol; cm10 14:32 bismuth subsalicylate; cm10 14:32 Hydrocodone-Acetaminophen; cm10 14:32 Ibuprofen; cm10 14:32 isradipine; cm10 14:32 Metoclopramide; cm10 14:32 Niacin; cm10 14:32 PENICILLINS; cm10 14:32 Sulfa (Sulfonamide Antibiotics); cm10 14:32 sulfamethoxazole-trimethoprim; cm10 14:32 Tramadol HCl; cm10 14:32 Triamterene; cm10 14:32 Verapamil; cm10 14:32 Aspirin; cm10 - Home Meds: 14:32 allopurinol 100 mg oral tablet 2 tabs daily [Active]; amlodipine 10 mg tablet 1 tab cm10 daily [Active]; atorvastatin 40 mg oral tablet 1 tab every day at bedtime [Active]; brimonidine 0.2 % ophthalmic (eye) drops [Active]; furosemide 40 mg Oral tablet 1 tab as needed [Active]; isosorbide mononitrate 30 mg Oral Tablet, Extended Release 24 hr 1 tab daily [Active]; losartan 100 mg oral tablet 1 tab daily [Active]; omeprazole 10 mg Oral capsule,delayed release (e.c.) 1 caps daily [Active]; potassium chloride 20 mEq Oral tablet, extended release 1 tab [Active]; prednisolone acetate 1 % Opht drops, suspension [Active]; - PMHx: 14:32 Aneurysm; Gastroesophageal reflux disease; Gout; High Cholesterol; Hypertensive cm10 disorder; Diverticulitis; - PSHx: 14:32 cataract; cm10 - Immunization history:: Adult Immunizations up to date. - Infectious Disease History:: Denies. - Social history:: Smoking status: Patient denies any tobacco usage or history of. - Family history:: not pertinent. ROS: 16:03 Constitutional: Negative for fever, chills, and weight loss, Eyes: Negative for injury, gisselle pain, redness, and discharge, ENT: Negative for injury, pain, and discharge, Neck: Negative for injury, pain, and swelling, Cardiovascular: Negative for chest pain, palpitations, and edema, Respiratory: Negative for shortness of breath, cough, wheezing, and pleuritic chest pain, Back: Negative for injury and pain, : Negative for injury, bleeding, discharge, and swelling, MS/Extremity: Negative for injury and deformity, Skin: Negative for injury, rash, and discoloration, Neuro: Negative for headache, weakness, numbness, tingling, and seizure, Psych: Negative for depression, anxiety, suicide ideation, homicidal ideation, and hallucinations, Allergy/Immunology: Negative for hives, rash, and allergies, Endocrine: Negative for neck swelling, polydipsia, polyuria, polyphagia, and marked weight changes, Hematologic/Lymphatic: Negative for swollen nodes, abnormal bleeding, and unusual bruising, 16:03 Abdomen/GI: Positive for abdominal pain, nausea, diarrhea, abdominal cramps, Exam: 16:03 Constitutional: This is a well developed, well nourished patient who is awake, alert, gisselle and in no acute distress. Head/Face: Normocephalic, atraumatic. Eyes: Pupils equal round and reactive to light, extra-ocular motions intact. Lids and lashes normal. Conjunctiva and sclera are non-icteric and not injected. Cornea within normal limits. Periorbital areas with no swelling, redness, or edema. ENT: Nares patent. No nasal discharge, no septal abnormalities noted. Tympanic membranes are normal and external auditory canals are clear. Oropharynx with no redness, swelling, or masses, exudates, or evidence of obstruction, uvula midline. Mucous membranes moist. Neck: Trachea midline, no thyromegaly or masses palpated, and no cervical lymphadenopathy. Supple, full range of motion without nuchal rigidity, or vertebral point tenderness. No Meningismus. Chest/axilla: Normal chest wall appearance and motion. Nontender with no deformity. No lesions are appreciated. Cardiovascular: Regular rate and rhythm with a normal S1 and S2. No gallops, murmurs, or rubs. Normal PMI, no JVD. No pulse deficits. Respiratory: Lungs have equal breath sounds bilaterally, clear to auscultation and percussion. No rales, rhonchi or wheezes noted. No increased work of breathing, no retractions or nasal flaring. Back: No spinal tenderness. No costovertebral tenderness. Full range of motion. Female : Normal external genitalia. Skin: Warm, dry with normal turgor. Normal color with no rashes, no lesions, and no evidence of cellulitis. MS/ Extremity: Pulses equal, no cyanosis. Neurovascular intact. Full, normal range of motion. Neuro: Awake and alert, GCS 15, oriented to person, place, time, and situation. Cranial nerves II-XII grossly intact. Motor strength 5/5 in all extremities. Sensory grossly intact. Cerebellar exam normal. Normal gait. Psych: Awake, alert, with orientation to person, place and time. Behavior, mood, and affect are within normal limits. 16:03 Abdomen/GI: Inspection: distension, Bowel sounds: normal, Palpation: mild abdominal tenderness, in the suprapubic area, right lower quadrant and left lower quadrant, Liver: no appreciated palpable abnormalities, Hernia: not appreciated, 17:20 ECG was reviewed by the Attending Physician. gisselle 17:20 Musculoskeletal/extremity: DVT Exam: No signs of deep vein thrombosis. no pain, no swelling, no tenderness, negative Homans' sign noted on exam, no appreciated bluish discoloration, no erythema, no increased warmth, Vital Signs: 14:30 BP 152 / 98; Pulse 89; Resp 16; Temp 97.6; Pulse Ox 100% on R/A; Weight 119.29 kg; cm10 Height 5 ft. 4 in. ; Pain 3/10; 17:40 BP 140 / 89; Pulse 79; Resp 16; Temp 97.9; Pulse Ox 100% ; db 18:30 BP 117 / 54; Pulse 73; Resp 16; Pulse Ox 100% on R/A; db 19:15 BP 119 / 64; Pulse 72; Resp 18; Temp 97.9; Pulse Ox 100% on R/A; kj2 14:30 Body Mass Index 45.14 (119.29 kg, 162.56 cm) cm10 14:30 Pain Scale: Adult cm10 MDM: 13:56 Patient medically screened. [facility] 16:09 Differential diagnosis: Nonspecific abd pain, gastritis, diverticulitis, viral gisselle gastroenteritis, gastroenteritis. Data reviewed: vital signs, nurses notes, lab test result(s), radiologic studies. Consideration of Admission/Observation Patient was admitted/placed on observation. Escalation of care including admission/observation considered. I considered the following discharge prescriptions or medication management in the emergency department Medications were administered in the Emergency Department. See MAR. Independent interpretation of the following test(s) in the Emergency Department CT Scan: My interpretation is ct ab/pelvis neg. Test considered but Not performed: Ultrasound no abd usg. Care significantly affected by the following chronic conditions: Hypertension, Obesity, gout, gerd. 04/18 13:57 Order name: Basic Metabolic Panel; Complete Time: 17:23 [facility] 04/18 13:57 Order name: CBC with Diff; Complete Time: 16:31 [facility] 04/18 13:57 Order name: LFT's; Complete Time: 17:23 [facility] 04/18 13:57 Order name: Magnesium; Complete Time: 17:23 [facility] 04/18 13:57 Order name: NT PRO-BNP; Complete Time: 17:23 [facility] 04/18 13:57 Order name: PT-INR; Complete Time: 16:31 [facility] 04/18 13:57 Order name: Troponin HS; Complete Time: 17:23 [facility] 04/18 13:57 Order name: Lipase; Complete Time: 17:23 [facility] 04/18 13:57 Order name: Urinalysis w/ reflexes; Complete Time: 15:59 [facility] 04/18 13:57 Order name: Fecal Leukocyte Stain [facility] 04/18 13:57 Order name: Stool Culture [facility] 04/18 13:57 Order name: XRAY Chest (1 view); Complete Time: 15:59 [facility] 04/18 13:57 Order name: CT Abd/Pelvis - IV Contrast Only [facility] 04/18 17:48 Order name: CT; Complete Time: 17:56 EDND 04/18 13:57 Order name: EKG; Complete Time: 13:58 [facility] 04/18 13:57 Order name: Cardiac monitoring; Complete Time: 16:14 [facility] 04/18 13:57 Order name: EKG - Nurse/Tech; Complete Time: 16:27 [facility] 04/18 13:57 Order name: IV Saline Lock; Complete Time: 16:14 [facility] 04/18 13:57 Order name: Labs collected and sent; Complete Time: 16:27 [facility] 04/18 13:57 Order name: O2 Per Protocol; Complete Time: 16:27 [facility] 04/18 13:57 Order name: O2 Sat Monitoring; Complete Time: 16:27 [facility] EC:20 Rate is 68 beats/min. Rhythm is regular. QRS Shelby is Normal. QRS interval is normal. No gisselle Q waves. T waves are Normal. No ST changes noted. Clinical impression: NSR w/ Non-specific ST/T Changes and No evidence of ischemia. Interpreted by me. Reviewed by me. Administered Medications: 16:15 Drug: NS 0.9% IV 1000 ml IV at 1 bolus Per protocol; 1000 mL bolus Route: IV; Rate: 1 db bolus; Site: right antecubital; 19:09 Follow up: Response: No adverse reaction; IV Status: Completed infusion db Disposition Summary: 04/18/24 16:36 Hospitalization Ordered Notes: Hospitalization Status: Inpatient Admission gisselle Provider: Link Love cha Location: Telemetry/MedSurg (Inpatient) gisselle Condition: Fair gisselle Problem: new gisselle Symptoms: have improved gisselle Bed/Room Type: Standard [facility] Room Assignment: 406(04/18/24 17:08) bd Diagnosis - Diarrhea, unspecified gisselle - Abdominal pain, Generalized gisselle - Obesity, unspecified gisselle - UTI/ Urinary tract infection, site not specified gisselle Forms: - Medication Reconciliation Form gisselle - SBAR form gisselle - Leadership Thank You Letter gisselle Signatures: Dispatcher [employer] EDYvette Madsen Corey, MD MD cha Benton, Danielle RN RN db Chasity Larkin RN RN cm10 Corrections: (The following items were deleted from the chart) 13:58 13:58 BASIC METABOLIC PANEL+C.LAB.BRZ ordered. EDMS EDMS 13:58 13:58 CBC+H.LAB.BRZ ordered. EDMS EDMS 13:58 13:58 HEPATIC FUNCTION+C.LAB.BRZ ordered. EDMS EDMS 13:58 13:58 MAGNESIUM+C.LAB.BRZ ordered. EDMS EDMS 13:58 13:58 PROBNP+C.LAB.BRZ ordered. EDMS EDMS 13:58 13:58 PROTIME (+INR)+COAG.LAB.BRZ ordered. EDMS EDMS 13:58 13:58 Troponin High Sensitivity+C.LAB.BRZ ordered. EDMS EDMS 13:58 13:58 LIPASE+C.LAB.BRZ ordered. EDMS EDMS 13:58 13:58 Urinalysis+U.LAB.BRZ ordered. EDMS EDMS 13:58 13:58 Fecal Leukocyte Stain+BA.LAB.BRZ ordered. EDMS EDMS 13:58 13:58 Stool Culture+BA.LAB.BRZ ordered. EDMS EDMS 17:08 16:36 gisselle bd
[2024-04-18 16:43] LABS: ALT/SGPT 31 U/L (13-56); AST/SGOT 37 U/L (15-37); Albumin 3.1 g/dL (3.4-5.0); Albumin/Globulin Ratio 0.7 (1.1-1.8); Alkaline Phosphatase 83 U/L (45-117); Anion Gap 7.5 mEq/L (5.0-15.0); BUN Blood Urea Nitrogen 17 mg/dL (7-18); Bicarbonate 25 mEq/L (21-32); Bilirubin Direct < 0.2 mg/dL (0-0.2); Bilirubin Indirect, Calculated 0.2 mg/dL (0.2-0.8); Bilirubin Total 0.4 mg/dL (0.2-1.0); Globulin 4.3 g/dL (2.3-3.5); Glomerular Filtration Rate 58 ml/min (=/>90); Glucose Level 126 mg/dL (74-106); Lipase 37 U/L (13-75); NT PRO-BNP 98 pg/mL (<125); Potassium 4.5 mEq/L (3.5-5.1); Protein, Total 7.4 g/dL (6.4-8.2); Sodium Level 140 mEq/L (136-145)
--- NOTE | 2024-04-18 17:48 | RAD REPORT ---
EXAMINATION: CT ABDOMEN AND PELVIS WITH CONTRAST CLINICAL INDICATION: Female, 68 years old.ABD PAIN TECHNIQUE: CT abdomen and pelvis was performed, after the administration of IV contrast, as [facility]. Axial, sagittal and coronal reconstructions were obtained. One or more of the following dose reduction techniques were used: Automated exposure control, adjustment of the mA and/o r kV according to patient size, and/or iterative reconstruction. Unless otherwise specified, incidental findings do not require dedicated imaging follow-up. [id number]. COMPARISON: No prior exam. FINDINGS: LOWER CHEST: The visualized lung bases are clear. LIVER: Normal in size and contour. No focal lesion. GALLBLADDER/BILE DUCT: No biliary ductal dilatation.? PANCREAS: No significant abnormality. SPLEEN: Normal size. No focal lesion. ADRENALS: Normal; no mass. KIDNEYS AND URETERS: Normal size and contour. No hydronephrosis. Bilateral renal lesions which are ei ther benign in appearance or too small to accurately characterize but statistically benign. GASTROINTESTINAL TRACT: Stomach is non-dilated. Small bowel has normal course and caliber. No colonic wall thickening or pericolonic inflammatory changes. No appendicitis. PERITONEUM: No ascites. Fat-containing umbilical hernia. LYMPH NODES: No lymphadenopathy. ABDOMINAL AORTA AND OTHER VESSELS: Normal caliber aorta and IVC. URINARY BLADDER: Normal contour. REPRODUCTIVE ORGANS: No pathologic process MUSCULOSKELETAL: No acute or suspicious osseous abnormality. ADDITIONAL FINDINGS: None. IMPRESSION: No acute or significant abnormalities seen in the abdomen or pelvis.
[2024-04-18] MEDS ORDERED: ONDANSETRON 4 MG/2 ML VIAL IV PRN (19:44)
[2024-04-18] MEDS ORDERED: ACETAMINOPHEN 325 MG TABLET PO PRN (19:44)
[2024-04-18] MEDS: FAMOTIDINE 20 MG/2 ML VIAL IV SCH (20:11)
[2024-04-18] MEDS: NA CHLORIDE 0.9% 1,000 ML IV SCH (20:11)
--- NOTE | 2024-04-18 21:20 | RAD REPORT ---
Abdomen Exam Limited: 04/18/2024 8:48 PM CLINICAL HISTORY: RUQ pain STUDY: Limited right upper quadrant ultrasound of abdomen. COMPARISON: CT 04/18/2024 FINDINGS: Liver: Increased echogenicity of the liver.No focal mass. Bile ducts: No intrahepatic or extrahepatic biliary dilatation. Common bile duct measures 4 mm. Gallbladder: Normal. Negative for cholelithiasis, acute cholecystitis, or gallbladder wall thickening . No sonographic Bolden sign. Large right renal cyst measuring approximately 9 x 7.1 cm. The spleen is normal in size. IMPRESSION: Hepatic steatosis. Negative for cholelithiasis or acute cholecystitis. Large simple right renal cyst.
--- NOTE | 2024-04-18 22:18 | HP ---
Date of Admission: 04/18/2024 Chief Complaint: Diarrhea and abdominal pain. History Of Present Illness: This is a 68-year-old very pleasant female patient, who came into office to see me on 04/13/2024 with 3 to 4 days' history of not feeling good, feeling tired, some burning s ensation with urination that happened once and none after that and was having some lower back pain an d lower abdominal pain. No fever. No chills, nausea, vomiting, constipation, or diarrhea. No blood in the urine or stool. No vaginal discharge or bleeding. The patient was evaluated at office, [facility] blood work was done, urine culture was done, and all her test results came back unremarkable and she was started on empiric antibiotics, Cipro and metronidazole for 1 week thinking about possibility of diverticulitis. The patient did have mild tenderness in lower abdomen involving right lower quad rant, suprapubic and left lower quadrant region. The patient was taking medications and reported ervin t she was improving slowly until yesterday manager commission around 4 o'clock in the morning. She starte d to have really bad diarrhea problem and her abdominal discomfort came back and that is why she came into emergency room today. She describes her diarrhea as watery stool and says yesterday she had 3 bowel movements. Today, she had 4 bowel movements. No blood in stool. After she was evaluated in [facility] emergency room, I was contacted requesting admission to the hospital. Allergies: TO ASPIRIN CAUSING HIVES, PENICILLIN CAUSING HIVES, SULFA CAUSING HIVES. Medications: Cipro 500 mg twice a day, metronidazole 500 mg 3 times a day, allopurinol 100 mg takes 2 tablets daily, amlodipine 10 mg daily, atorvastatin 40 mg daily at bedtime, furosemide 40 mg daily as needed for leg swelling, isosorbide mononitrate 30 mg daily, losartan 100 mg daily, omeprazole 10 mg daily, potassium chloride 20 mEq daily as needed along with furosemide, vitamin B12 1000 mcg daily , vitamin D 2000 units daily. Review of Systems: GI: As mentioned above. All others systems reviewed and negative. Past Medical History: Significant for cerebral aneurysm, glaucoma, type 2 diabetes mellitus, hyperte nsion, hyperlipidemia, gastroesophageal reflux disease, renal cyst, osteoarthritis at multiple sites, gout, and chronic kidney disease stage IIIA. Past Surgical History: Cataract surgery. Family History: Father , details unknown. Mother with hypertension. Social History: Negative for smoking. Use of alcohol, occasional. Physical Examination: Vital Signs: When the patient came into emergency room, blood pressure 152/98, pulse 89, respiratory rate 16, temperature 97.6, height 5 feet 4 inches, weight 119.29 kg. General: Awake, alert, oriented, not in distress. HEENT: Head atraumatic, normocephalic. Conjunctivae nonerythematous. Sclerae white. Mouth, no thr ush or edema noted. Ears/Nose, no mass, lesion, discharge noted. Neck: Supple. No JVD, lymph nodes, bruit, thyromegaly noted. Lungs: Bilateral good equal air entry. Clear to auscultation. No rhonchi. No rales. Heart: Normal heart sounds, no murmur or gallop. Abdomen: Soft. Bowel sounds normal. No guarding, rigidity, distention. No rebound tenderness. Th e patient has mild tenderness in left upper quadrant and right upper quadrant. No rebound tenderness . Extremities: No leg edema. No calf tenderness. Skin: No rash, ulcer, cellulitis. Lymphatics: No lymph node enlargement in neck, supraclavicular, infraclavicular region. Neuro: No focal neurological deficit. Chest: Unremarkable. External Genitalia: Deferred. Rectal: Deferred. Laboratory Data: Chest x-ray, no acute intrathoracic changes. CAT scan of the abdomen and pelvis wa s negative for any acute intraabdominal changes. WBC 5.3, hemoglobin 13.8, platelets 221. Sodium 14 0, potassium 4.5, chloride 112, bicarb 25, BUN 17, creatinine 1.04, glucose 126. Liver function test s unremarkable. Troponin 6, lipase 37. Impression: 1.Acute gastroenteritis. 2.Abdominal pain. 3.Chronic kidney disease stage IIIA. 4.Hypertension. 5.Hyperlipidemia. 6.Type 2 diabetes mellitus. 7.Gastroesophageal reflux disease. 8.Osteoarthritis, multiple sites. Plan: We will go ahead and admit the patient to hospital for further evaluation and management of th is problem. The patient has failed outpatient therapy and now she will be admitted to the hospital. She is appropriate for inpatient admission and is expected to spend 2 midnights in hospital. We jimena l go ahead and continue IV fluid and she has taken about 5 days of antibiotic therapy so far on outpa tient basis as prescribed. We will repeat blood work tomorrow morning. For her hypertension, we jimena l continue antihypertensive medication per order and monitor blood pressure. If necessary, adjust me dication. For her hyperlipidemia, we will continue her statin therapy per order and no need for furt her intervention. For gastroesophageal reflux disease, we will continue proton pump inhibitor therap y and no need for further intervention. For diabetes, she does not take any medication and no interv ention needed. For abdominal pain, we will go ahead and get abdominal ultrasound done for right uppe r quadrant to look at gallbladder. SCD was ordered for DVT prophylaxis. Total time spent was 80 minutes including review of last week's office visit note from 04/13/2024 and last week's outpatient blood work, review of today's emergency room visit record, communication with ER physician, and performing today's evaluation and management. I will see her tomorrow morning for followup. PATRICA/TAB Voice ID: [id number]
[2024-04-18 23:30] VITALS: BMI 45.3
[2024-04-18 23:55] VITALS: O2SAT 99
[2024-04-19 07:01] LABS: Absolute Eosinophils 0.1 K/uL (0-0.5); Absolute Lymphocytes (CBC) 1.5 K/uL (0.7-4.9); Absolute Monocytes 0.4 K/uL (0.1-1.3); Absolute Neutrophil 3.2 K/uL (1.8-8.0); Basophils % 0.5 % (0-1.3); Eosinophils % 1.5 % (0-4.4); Hematocrit 39.1 % (36.0-45.0); Lymphocytes % 28.7 % (15.3-44.8); MCH 31.9 pg (27.0-35.0); MCHC 33.1 g/dL (32.0-36.0); MCV 96.5 fL (80-100); MPV 8.3 fL (7.6-11.3); Monocytes % 7.7 % (3.3-12.3); Neutrophils % 61.6 % (41.7-73.7); Platelets 230 thou/uL (152-406); RBC Red Blood Cell Count 4.06 M/uL (3.86-4.86); Red Cell Distribution Width 15.6 % (12.1-15.2)
[2024-04-19] MEDS: allopurinoL 100 MG TAB PO SCH (08:35)
[2024-04-19] MEDS: ISOSORBIDE MONO SR 30 MG TAB PO SCH (08:36)
[2024-04-19] MEDS: PANTOPRAZOLE 40MG TABLET PO ONE (08:37)
[2024-04-19] MEDS: NA CHLORIDE 0.9% 1,000 ML IV SCH (08:38)
[2024-04-19] MEDS: FLU (Fluarix Triv) TS24-25(6MOS UP)/PF 45 MCG/0.5 ML Syringe IM ONE (09:38)
[2024-04-19] MEDS: PNEUMOCOCCAL VACCINE 0.5 ML IMVAC ONE (09:38)
--- NOTE | 2024-04-19 12:25 | EKG ---
Test Date: 2024-04-19 Test Time: 09:25:43 Eyelet Operator: MARILYN MEASUREMENT RESULTS: Intervals: Rate: 73 [place]: 182 QRSD: 88 QT: 408 QTc: 449 [place]: P: 27 [place]: 182 QRS: 15 T: 52 INTERPRETIVE STATEMENTS: Sinus rhythm with premature atrial complexes Otherwise normal ECG Compared to ECG 04/18/2024 16:21:30 Atrial premature complex(es) now present Myocardial infarct finding no longer present Electronically Signed On 04-19-24 12:24:18 CDT by Aaron Singh
--- NOTE | 2024-04-19 12:27 | EKG ---
Test Date: 2024-04-18 Test Time: 16:21:30 Inspection Manager: HALIMA MEASUREMENT RESULTS: Intervals: Rate: 68 [place]: 182 QRSD: 82 QT: 412 QTc: 438 [place]: P: 58 [place]: 182 QRS: 40 T: 68 INTERPRETIVE STATEMENTS: Normal sinus rhythm Septal infarct, age undetermined Abnormal ECG Compared to ECG 02/01/2024 14:31:42 Myocardial infarct finding now present Electronically Signed On 04-19-24 12:25:49 CDT by Aaron Singh
[2024-04-19 15:41] VITALS: BP 130/61; TEMP 98
[2024-04-19] MEDS ORDERED: ATORVASTATIN 40 MG TAB PO SCH (21:00)
--- NOTE | 2024-04-19 23:38 | DS ---
Date of Discharge: 04/19/2024 Disposition: Discharged to go home. Physical Examination: HEENT: Unremarkable. Lungs: Clear to auscultation. Heart: Sounds normal. Abdomen: Soft. Bowel sounds normal. No guarding, rigidity, tenderness, distention. Extremities: No leg edema. Discharge Medications And Instructions: Continue all prior home medication except following changes: 1. Do not take any Cipro or metronidazole. 2. Follow up at my office next week. Laboratory Data: Yesterday upon admission, white count 5.3, hemoglobin 13.8, platelets 221. This morning, white count 5.2, hemoglobin 13, platelets 230. For chemistry yesterday, sodium 140, potassium 4.5, chloride 112, bicarb 25, BUN 17, creatinine 1.04, glucose 126. Liver function tests unremarkable. Troponin 6 on the first set and second set was also 6. Lipase 37. This morning, sodium 140, potassium 4, chloride 111, bicarb 25, BUN 11, creatinine 0.87, glucose 103. Her right upper quadrant ultrasound of abdomen shows changes of fatty liver and simple renal cyst and her CAT scan of abdomen and pelvis was negative for any acute changes done yesterday in the emergency room. Hospital Course: This is a 68-year-old pleasant female patient, who was admitted to the hospital after she came into emergency room yesterday with abdominal pain and diarrhea. Please see dictated H and P for more information. After the patient was evaluated in the emergency room, she was admitted to the hospital. IV fluid was started and she was started on clear liquid diet. This morning when I saw her, she reported that her diarrhea has improved. She has had 2 or 3 small bowel movements, but her stool was soft. No more liquid diarrhea stool. No abdominal pain anymore. This morning, no nausea, no vomiting. She had mild tenderness in upper abdomen yesterday. This morning, her abdominal exam was unremarkable. Her diet was advanced to full liquid diet this morning for breakfast and as of lunch, it was advanced to regular diet, which she has tolerated very well and as the day progressed today, the patient has felt fine and no problems or complaints reported. She is medically stable for discharge and was discharged to go home with above-mentioned medications and instructions. Final Diagnoses: 1. Acute gastroenteritis. 2. Abdominal pain, upper, resolved. 3. Chronic kidney disease stage IIIA. 4. Renal cyst. 5. Fatty liver disease. 6. Hypertension. 7. Hyperlipidemia. 8. Type 2 diabetes mellitus. 9. Gastroesophageal reflux disease. 10. Osteoarthritis, multiple sites. Total time spent 40 minutes. PATRICA/TAB Voice ID: [id number] Report ID: [id number] MTDD
[2024-04-20] MEDS ORDERED: PANTOPRAZOLE 40MG TABLET PO SCH (06:30)
== END 2024-04-19 18:14 | disposition home or self-care (01) ==
LOC: ER 13:49 → ERHOLD 16:49 → INTOOBSV 16:49 → 4TH 17:58
PROVIDERS: ADMIT Internal Medicine; ATTEND Internal Medicine
DX: K52.9 Noninfective gastroenteritis and colitis, unspecified (principal); R10.9 Unspecified abdominal pain; E11.22 Type 2 diabetes mellitus with diabetic chronic kidney disease; I12.9 Hypertensive chronic kidney disease with stage 1 through stage 4 chronic kidney disease, or unspecified chronic kidney disease; N18.31 Chronic kidney disease, stage 3a; E78.5 Hyperlipidemia, unspecified; K21.9 Gastro-esophageal reflux disease without esophagitis; M19.90 Unspecified osteoarthritis, unspecified site; Z88.0 Allergy status to penicillin; Z88.2 Allergy status to sulfonamides; Z88.6 Allergy status to analgesic agent; Z88.8 Allergy status to other drugs, medicaments and biological substances
CPT/HCPCS: 96361; 93005 ×2; 87045; 85025 ×2; 81001; 80048 ×2; 36415; 83735; 89055; 85610; 80076; 87046; 84484 ×2; 83690; 83880; 74177; 71045; 76705; 96360; 99285; Q9967; J7030 ×3; G0378 ×3

== ENCOUNTER 2024-04-23 19:59 | Emergency (ER) | payer OTHER, MEDICARE ==
--- OUTSIDE RECORDS SUMMARY | 2024-04-23 20:01 | XMS REPORT | Continuity of Care Document ---
Author Name Unknown Address [address] [place] [address] [facility] thconnect Address [address] [place] [address] Care Team Providers Care Bleach Maker Name Role Phone No MD, Pcp Primary Care Physician ARMIN Thacker Attending Clinician SURINDER Bright Attending Clinician JESSE Gambino Attending Clinician Brenda walker Payers Payer Name Policy Type Policy Number Effective Date Expirati on Date Source MEDICARE PART A AND B [id number] 2018 00:00:00 MEDICARE-PART B 5 [id number] 2023 00:00:00 [employer] 4 [id number] 2022 00:00:00 Allergies, Adverse Reactions, Alerts Allergy [...] reaction s Active 11-17 00:00: 00 Sari Freemanold - Externa l Penicill ins Propensi ty to adverse reaction s Active 11-17 00:00: 00 Sari Freemanold - Externa l Sulfa Drugs Propensi ty to adverse reaction s Active 11-17 00:00: 00 Sari Boland - Externa l Sulfamet hoxazole -Trimeth oprim Propensi ty to adverse reaction s Active 11-17 00:00: 00 Sari Boland - Externa l Tramadol Propensi ty to adverse reaction s Active 11-17 00:00: 00 Sari Boland - Externa l Triamter amrita Propensi ty to adverse reaction s Active 11-17 00:00: 00 Sari Freemanold - Externa l Verapami l Propensi ty to adverse reaction s Active 11-17 00:00: 00 Sari Boland - Externa l Aspirin Propensi ty to adverse reaction s Active Hiv11-17 00:00: 00 Sari Boland - Externa l Atenolol Propensi ty to adverse reaction s Active Hiv11-17 00:00: 00 Sari Boland - Externa l Bismuth Subsalic ylate Propensi ty to adverse reaction s Active Hiv11-17 00:00: 00 Sari Mitchell Externa l Metronid -Tetracy c-Bis Subsal Propensi ty to adverse reaction s Active Hives 08-28 00:00: 00 [facility] Sulfa Antibiot ics Propensi ty to adverse reaction s Active Hives 16 00:00: 00 [facility] Acetamin ophen-Co deine Drug Allergy Active Unknown 07-15 00:00: 00 [place] lighthead ed after taking on an empty stomach [facility] Atenolol Allergy to substanc e Active Hives 07-15 00:00: 00 [facility] Bismuth Allergy to substanc e Active Hives 07-15 00:00: 00 [facility] Bismuth Subsalic ylate Allergy to substanc e Active Hives 07-15 00:00: 00 [facility] Hydrocod one-Acet aminophe n Drug Allergy Active Hives 07-15 00:00: 00 [facility] Metoclop ramide Allergy to substanc e Active Unknown 07-15 00:00: 00 [place] shaky [facility] Metronid azole Allergy to substanc e Active Hives 07-15 00:00: 00 [facility] Niacin Allergy to substanc e Active Rash 07-15 00:00: 00 [facility] Sulfate Allergy to substanc e Active Hives 07-15 00:00: 00 [facility] Tetracyc line Allergy to substanc e Active Hives 07-15 00:00: 00 [facility] Triamter amrita Allergy to substanc e Active Unknown 07-15 00:00: 00 Other Reaction( s): Faint Feeling Pruritis as well [facility] Verapami l Allergy to substanc e Active Anaphylaxis 07-15 00:00: 00 Tender gums [facility] Rudy Inhibito rs Allergy to substanc e Active Rash 07-15 00:00: 00 [facility] Aspirin Allergy to substanc e Active Hives 04-06 00:00: 00 [facility] Ibuprofe n Propensi ty to adverse reaction s Active Hives 04-06 00:00: 00 [facility] Isradipi ne Allergy to substanc e Active Hives 04-06 00:00: 00 [facility] Penicill ins Propensi ty to adverse reaction s Active Hives 04-06 00:00: 00 [facility] Sulfamet hoxazole -Trimeth oprim Propensi ty to adverse reaction s Active Hives 04-06 00:00: 00 [facility] Social History Social Habit Start Date Stop Date Quantity Comments Source Sexual orientation Gregory Boland - External Alcoholic beverage intake 2023-11-18 00:00:00 2023-11-18 00:00:00 Lifetime non-drinker (finding) Sari Boland - External History of Social function 2023-11-18 00:00:00 2023-11-18 00:00:00 Sari Boland - External Tobacco use and exposure 2023-03-24 00:00:00 2023-03-24 00:00:00 Smokeless tobacco non-user [facility] Alcohol intake 2023-03-24 00:00:00 2023-03-24 00:00:00 Ex-drinker (finding) [facility] Sex assigned at 1955 00:00:00 1955 00:00:00 Sari Yusuf Smoking Status Start Date Stop Date Source Never smoked tobacco Sari Yusuf Medications Ordered Medication Name Filled Medication Name [...] Sari nelson Furosemide 40 MG oral Tablet - 00:00: 00 Yes TAKE 1 TABLET BY MOUTH EVERY DAY NEEDED FOR LEG SWELLING Sari nelson Potassium Chloride Irma ER 20 MEQ oral Tab CR tablet 17 00:00: 00 Yes TAKE 1 TABLET BY MOUTH DAILY NEEDED WITH FUROSEMIDE Sari nelson allopurinol (Zyloprim) 100 MG tablet 01-09 00:00: 00 Yes [facility] atorvastati n (Lipitor) 10 MG tablet 01-09 00:00: 00 Yes [facility] Vital Signs Vital Name Observation Time Observation Value Comments S ource Systolic blood pressure 2023-11-18 13:44:00 141 mm[Hg] Sari eric ld - External Diastolic blood pressure 2023-11-18 13:44:00 87 mm[Hg] Sari Mcallister ld - External Heart rate 2023-11-18 13:44:00 81 /min Nestor mitchell Stephensabby - External Body temperature 2023-11-18 13:44:00 36.33 Cara Sari abby - External Respiratory rate 2023-11-18 13:44:00 16 /min Sari Boland - External Body height 2023-11-18 13:44:00 162.6 cm Orly fernandes abby - External Body weight 2023-11-18 13:44:00 119.477 kg Orly fernandes ybmau - External BMI 2023-11-18 13:44:00 45.21 kg/m2 Orly Boland - External Oxygen saturation in Arterial blood by Pulse oximetry 2023-11-18 13:44:00 97 /min Sari eric ld - External Systolic blood pressure 2023-03-24 16:12:00 130 mm[Hg] [facility] Diastolic blood pressure 2023-03-24 16:12:00 83 mm[Hg] [facility] Heart rate 2023-03-24 16:12:00 74 /min [facility] Body temperature 2023-03-24 16:12:00 36.5 Cara [facility] Body height 2023-03-24 16:12:00 162.6 cm [facility] Body weight 2023-03-24 16:12:00 119.75 kg [facility] BMI 2023-03-24 16:12:00 45.32 kg/m2 [facility] Encounters Start Date/Time End Date/Time Encounter Type Admission Type Attending [facility] Care Department Encounter ID Source 2023-02-10 12:55:12 Outpatient [facility] [id number] [facility] 2023-02-09 10:30:45 Outpatient [facility] [id number] [facility] 2023-01-20 09:51:31 Outpatient [facility] [id number] [facility] 2023-01-06 14:06:59 Outpatient [facility] [id number] [facility] 2024-11-16 10:30:00 2024-11-16 10:30:00 Outpatient ARMIN NORWOOD [id number] [facility] 2023-11-18 08:30:00 2023-11-18 08:30:00 Outpatient ARMIN NORWOOD [id number] [facility] 2023 16:20:00 2023 16:20:00 Outpatient SARI EDUARDO [id number] [facility] 2023 00:00:00 2023 00:00:00 Outpatient ARMIN NORWOOD [id number] [facility] 2023-09-15 13:30:00 2023-09-15 13:30:00 Outpatient SURINDER REYNOSO [id number] [facility] 2023-03-24 11:30:00 2023-03-24 11:30:00 Office Visit JESSE REECE [facility] [address] [id number] [facility] 2023-02-17 10:00:00 2023-02-17 10:00:00 Outpatient REECEJESSE [facility] [id number] [facility] Notes Date/Time Note Provider Source 2023-11-18 08:50:55 Chief Complaint Patient presents with Consultation Pt has 2 aneurysms Height 5'4 per pt TIMUR Singh T [facility]
[2024-04-23] MEDS ORDERED: TETRACAINE HCL 0.5% 4ML OPTH ONE (20:26)
[2024-04-23] MEDS ORDERED: FLUORESCEIN SODIUM 1 MG/WRAP ONE (20:28)
--- NOTE | 2024-04-23 21:21 | ER ---
Nurse's Notes [facility] Name: Marlyn Christy Age: 68 yrs Sex: Female : 1955 Arrival Date: 04/23/2024 Time: 19:59 Bed IW1 Private MD: Diagnosis: Panuveitis, left eye;Ocular pain, left eye Presentation: 04/23 20:06 Chief complaint: Patient states: left eye pain that started 2-3 hours ago. Patient had cp4 glaucoma and cataract surgery on 03/21/24. Coronavirus screen: Client denies travel out of the [place] in the last 14 days. At this time, the client does not indicate any symptoms associated with coronavirus-19. Ebola Screen: Patient negative for fever greater than or equal to 101.5 degrees Fahrenheit, and additional compatible Ebola Virus Disease symptoms Patient denies exposure to infectious person. Patient denies travel to an Ebola-affected area in the 21 days before illness onset. No symptoms or risks identified at this time. Mechanism of Injury: No Mechanism of Injury. The patient denies any loss of vision. Initial Sepsis Screen: Does the patient meet any 2 criteria? No. Patient's initial sepsis screen is negative. Does the patient have a suspected source of infection? No. Patient's initial sepsis screen is negative. Risk Assessment: Do you want to hurt yourself or someone else? Patient reports no desire to harm self or others. Onset of symptoms was April 23, 2024. 20:06 Method Of Arrival: Ambulatory cp4 20:06 Acuity: BRITANY 3 cp4 20:06 Acuity: BRITANY 3 cp4 Triage Assessment: 20:09 General: Appears uncomfortable, Behavior is calm, cooperative, appropriate for age. cp4 Pain: Complains of pain in left eye. Historical: - Allergies: 20:09 PENICILLINS; cp4 20:09 Sulfa (Sulfonamide Antibiotics); cp4 20:09 Niacin; cp4 - Immunization history:: Adult Immunizations up to date. - Infectious Disease History:: Denies. - Social history:: Smoking status: Patient denies any tobacco usage or history of. - Family history:: not pertinent. Screenin:25 [facility] ED Fall Risk Assessment (Adult) History of falling in the last 3 months, kj2 including since admission No falls in past 3 months (0 pts) Confusion or Disorientation No (0 pts) Intoxicated or Sedated No (0 pts) Impaired Gait No (0 pts) Mobility Assist Device Used No (0 pt) Altered Elimination No (0 pt) Score/Fall Risk Level 0 - 2 = Low Risk Maintained a safe environment, Hourly rounding (assess needs \T\ fall precautionary measures) done. Abuse screen: Denies threats or abuse. Denies injuries from another. Nutritional screening: No deficits noted. Tuberculosis screening: No symptoms or risk factors identified. Assessment: 20:25 General: Appears in no apparent distress. uncomfortable, Behavior is calm, cooperative. kj2 Pain: Complains of pain in left eye Pain currently is 7 out of 10 on a pain scale. Neuro: Level of Consciousness is awake, alert, obeys commands, Oriented to person, place, time, situation. Cardiovascular: Patient's skin is warm and dry. Respiratory: Airway is patent Respiratory effort is even, unlabored. GI: No signs and/or symptoms were reported involving the gastrointestinal system. : No signs and/or symptoms were reported regarding the genitourinary system. EENT:. 20:30 EENT: Eyes no tearing. Sclera/Cornea are reddened in left eye. kj2 Vital Signs: 20:06 BP 142 / 85; Pulse 82; Resp 18; Temp 97.9; Pulse Ox 98% ; Weight 119.29 kg; Height 5 cp4 ft. 4 in. ; Pain 6/10; 20:25 BP 119 / 63; Pulse 76; Resp 18; Temp 98.2; Pulse Ox 100% ; kj2 20:06 Body Mass Index 45.14 (119.29 kg, 162.56 cm) cp4 20:06 Pain Scale: Adult cp4 Visual Acuity: 20:15 Right Eye Visual acuity 20/40, Reactive To Accomodation; ; kj2 ED Course: 20:02 Patient arrived in ED. ra3 20:09 Triage completed. cp4 20:09 Arm band placed on right wrist. Patient placed in waiting room. cp4 20:16 Avery Alcazar MD is Attending Physician. gisselle 20:24 Sharda Jacobs RN is Primary Nurse. kj2 20:25 Patient has correct armband on for positive identification. Bed in low position. Call kj2 light in reach. Adult w/ patient. Provided Education on: call light. 20:49 No provider procedures requiring assistance completed. kj2 21:37 Patient did not have IV access during this emergency room visit. cp4 22:21 Primary Nurse role handed off by Sharda Jacobs, ESTRADA lg3 Administered Medications: No medications were administered Medication: 20:25 VIS not applicable for this client. kj2 Outcome: 21:20 Discharge ordered by . gisselle 21:37 Discharged to home ambulatory, cp4 21:37 Condition: stable 21:37 Discharge instructions given to patient, Instructed on discharge instructions, follow up and referral plans. medication usage, Demonstrated understanding of instructions, follow-up care, medications, Prescriptions given X 2, 21:37 Patient left the ED. cp4 22:22 Patient left the ED. lg3 Signatures: Avery Alcazar MD MD cha Able, Lacie, RN RN lg3 Veronica Carson cp4 Pearl Emery 3 Sharda Jacobs RN RN kj2 Corrections: (The following items were deleted from the chart) 20:10 20:09 PMHx: Aneurysm; cp4 cp4 20:10 20:09 PMHx: Hypertensive disorder; cp4 cp4 20:10 20:09 PMHx: Gastroesophageal reflux disease; cp4 cp4 20:10 20:09 PMHx: Gout; cp4 cp4 20:10 20:09 PMHx: High Cholesterol; cp4 cp4 20:10 20:09 PMHx: Diverticulitis; cp4 cp4 20:10 20:09 PSHx: cataract; cp4 cp4
--- NOTE | 2024-04-23 21:21 | EDPHYS ---
Physician Documentation [facility] Name: Marlyn Christy Age: 68 yrs Sex: Female : 1955 Arrival Date: 04/23/2024 Time: 19:59 Bed IW1 Private MD: ED Physician Avery Alcazar HPI: 04/23 21:13 This 68 yrs old Black Female presents to ER via Ambulatory with complaints of Eye Pain gisselle - left Post Sx. 21:13 The patient is experiencing pain, redness. Onset: The symptoms/episode began/occurred gisselle today. Duration: the symptoms are continuous. Aggravated by nothing. Alleviated by nothing. Associated signs and symptoms: Pertinent positives:. Patient does not utilize any form of vision correction. Severity of symptoms: At their worst the symptoms were moderate in the emergency department the symptoms are unchanged. The patient has not experienced similar symptoms in the past. Historical: - Allergies: 20:09 PENICILLINS; cp4 20:09 Sulfa (Sulfonamide Antibiotics); cp4 20:09 Niacin; cp4 - Immunization history:: Adult Immunizations up to date. - Infectious Disease History:: Denies. - Social history:: Smoking status: Patient denies any tobacco usage or history of. - Family history:: not pertinent. ROS: 21:13 Constitutional: Negative for fever, chills, and weight loss, ENT: Negative for injury, gisselle pain, and discharge, Neck: Negative for injury, pain, and swelling, Cardiovascular: Negative for chest pain, palpitations, and edema, Respiratory: Negative for shortness of breath, cough, wheezing, and pleuritic chest pain, Abdomen/GI: Negative for abdominal pain, nausea, vomiting, diarrhea, and constipation, Back: Negative for injury and pain, : Negative for injury, bleeding, discharge, and swelling, MS/Extremity: Negative for injury and deformity, Skin: Negative for injury, rash, and discoloration, Neuro: Negative for headache, weakness, numbness, tingling, and seizure, Psych: Negative for depression, anxiety, suicide ideation, homicidal ideation, and hallucinations, Allergy/Immunology: Negative for hives, rash, and allergies, Endocrine: Negative for neck swelling, polydipsia, polyuria, polyphagia, and marked weight changes, Hematologic/Lymphatic: Negative for swollen nodes, abnormal bleeding, and unusual bruising, 21:13 Eyes: Positive for pain, redness, Exam: 21:13 Constitutional: This is a well developed, well nourished patient who is awake, alert, gisselle and in no acute distress. Head/Face: Normocephalic, atraumatic. ENT: Nares patent. No nasal discharge, no septal abnormalities noted. Tympanic membranes are normal and external auditory canals are clear. Oropharynx with no redness, swelling, or masses, exudates, or evidence of obstruction, uvula midline. Mucous membranes moist. Neck: Trachea midline, no thyromegaly or masses palpated, and no cervical lymphadenopathy. Supple, full range of motion without nuchal rigidity, or vertebral point tenderness. No Meningismus. Chest/axilla: Normal chest wall appearance and motion. Nontender with no deformity. No lesions are appreciated. Cardiovascular: Regular rate and rhythm with a normal S1 and S2. No gallops, murmurs, or rubs. Normal PMI, no JVD. No pulse deficits. Respiratory: Lungs have equal breath sounds bilaterally, clear to auscultation and percussion. No rales, rhonchi or wheezes noted. No increased work of breathing, no retractions or nasal flaring. Abdomen/GI: Soft, non-tender, with normal bowel sounds. No distension or tympany. No guarding or rebound. No evidence of tenderness throughout. Back: No spinal tenderness. No costovertebral tenderness. Full range of motion. Female : Normal external genitalia. Skin: Warm, dry with normal turgor. Normal color with no rashes, no lesions, and no evidence of cellulitis. MS/ Extremity: Pulses equal, no cyanosis. Neurovascular intact. Full, normal range of motion. Neuro: Awake and alert, GCS 15, oriented to person, place, time, and situation. Cranial nerves II-XII grossly intact. Motor strength 5/5 in all extremities. Sensory grossly intact. Cerebellar exam normal. Normal gait. Psych: Awake, alert, with orientation to person, place and time. Behavior, mood, and affect are within normal limits. 21:13 Eyes: Periorbital structures: appear normal, no acute changes, Pupils: no acute changes, equal, round, and reactive to light and accomodation, Extraocular movements: intact throughout, Conjunctiva: injected, in the left eye, Corneas: no acute changes, no evidence of abrasion, no foreign body, Sclera: INJECTED, Anterior chamber: normal, no acute changes, Lids and lashes: appear normal, no acute changes, funduscopic exam reveals no obvious abnormalities, Visual brink: are intact, 22:21 Eyes: Nystagmus: is not appreciated, Intraocular pressure: is normal, left eye = gisselle 14mmHg, Vital Signs: 20:06 BP 142 / 85; Pulse 82; Resp 18; Temp 97.9; Pulse Ox 98% ; Weight 119.29 kg; Height 5 cp4 ft. 4 in. ; Pain 6/10; 20:25 BP 119 / 63; Pulse 76; Resp 18; Temp 98.2; Pulse Ox 100% ; kj2 20:06 Body Mass Index 45.14 (119.29 kg, 162.56 cm) cp4 20:06 Pain Scale: Adult cp4 Visual Acuity: 20:15 Right Eye Visual acuity 20/40, Reactive To Accomodation; ; kj2 MDM: 20:16 Patient medically screened. gisselle 21:17 Differential diagnosis: Corneal abrasion of Corneal ulcer of Foreign body in Acute gisselle iritis of Acute glaucoma in left eye. Ultraviolet keratitis in. Data reviewed: vital signs, nurses notes. Consideration of Admission/Observation Escalation of care including admission/observation considered. Test considered but Not performed: Labs: NO LABS. Care significantly affected by the following chronic conditions: Diabetes, Hypertension. Administered Medications: No medications were administered Disposition Summary: 04/23/24 21:20 Discharge Ordered Notes: Location: Home [facility] Condition: Stable [facility] Diagnosis - Panuveitis, left eye gisselle - Ocular pain, left eye gisselle Followup: [facility] - With: Private Physician - When: 1 - 2 days - Reason: Recheck today's complaints, Re-evaluation by your physician Discharge Instructions: - Discharge Summary Sheet gisselle - Uveitis gisselle - Uveitis, [id number] [facility] Forms: - Medication Reconciliation Form [facility] - Antibiotic Education gisselle - Prescription Opioid Use [facility] - Patient Portal Instructions [facility] - Leadership Thank You Letter [facility] Prescriptions: - ketorolac 0.5 % Ophthalmic drops - instill 1 drop OPHTHALMIC route every 6 hours for 5 days; 7.5 drop; Refills: 0, gisselle Product Selection Permitted - moxifloxacin 0.5 % Ophthalmic drops - instill 1 drop OPHTHALMIC route 3 times per day for 5 days; 7.5 milliliter; gisselle Refills: 0, Product Selection Permitted Signatures: Avery Alcazar MD MD cha Potter, Christina cp4 Corrections: (The following items were deleted from the chart) 20:10 20:09 PMHx: Aneurysm; cp4 cp4 20:10 20:09 PMHx: Hypertensive disorder; cp4 cp4 20:10 20:09 PMHx: Gastroesophageal reflux disease; cp4 cp4 20:10 20:09 PMHx: Gout; cp4 cp4 20:10 20:09 PMHx: High Cholesterol; cp4 cp4 20:10 20:09 PMHx: Diverticulitis; cp4 cp4 20:10 20:09 PSHx: cataract; cp4 cp4
[2024-04-24 01:58] VITALS: BP 119/63; TEMP 98.2; O2SAT 100
== END 2024-04-23 22:22 | disposition home or self-care (01) ==
LOC: ER 19:59
DX: H44.112 Panuveitis, left eye (principal)

== ENCOUNTER 2024-09-11 09:15 | Emergency (ER) | payer OTHER, MEDICARE ==
--- OUTSIDE RECORDS SUMMARY | 2024-09-11 09:19 | XMS REPORT | Continuity of Care Document ---
Author Name Unknown Address [address] [facility] [address] [place] [address] [facility] Address [address] [facility] [address] [place] [address] Care Team Providers Care Visual Merchandising Coordinator Name Role Phone Link Love Josselyn Primary Care Physician [phone] JESSE REECE Attending Clinician ARMIN Frias Attending Clinician Elaine Turner MA Attending Clinician Dima Patino MD Attending Clinician DIMA DAVIS Attending Clinician SURINDER Troy Attending Clinician Radha kaplan Payers Payer Name Policy Type Policy Number Effective Date Expirati on Date Source MEDICARE PART A AND B [id number] 2018 00:00:00 MEDICARE-PART B 5 [id number] 2023 00:00:00 [employer]ARP/[place] 4 [id number] 2022 00:00:00 MEDICARE PART A AND B Medicare [id number] 2024 00:00:00 Problems Condition Name Condition Details Condition Category Status Onset Date Resolution Date Last Treatment Date Treating Clinician Comments Source Cerebral aneurysm without rupture Cerebral aneurysm without rupture Disease Active 2023-07 00:00: 00 Florentino Pappas DM type 2 without retinopath y (CMS/HCC) DM type 2 without retinopath y (CMS/HCC) Disease Active 02-02 00:00: 00 Florentino Pappas Midline cystocele Midline cystocele Disease Active 2012-07 00:00: 00 Florentino Pappas Diabetes mellitus type 2, diet-contr olled Diabetes mellitus type 2, diet-contr olled Disease Active 2011-07 00:00: 00 Florentino Pappas NAFL (nonalcoho lic fatty liver) NAFL (nonalcoho lic fatty liver) Disease Active 01-27 00:00: 00 Florentino Pappas GERD (gastroeso phageal reflux disease) GERD (gastroeso phageal reflux disease) Disease Active 11-26 00:00: 00 Florentino Pappas Gout Gout Disease Active 11-26 00:00: 00 Florention Pappas Hyperchole sterolemia Hyperchole sterolemia Disease Active 11-26 00:00: 00 Florentino Pappas Stricture and stenosis of esophagus Stricture and stenosis of esophagus Disease Active 10-29 00:00: 00 Florentino Pappas Pelvic pain in female Pelvic pain in female Disease Resolve d 01-24 00:00: 00 2024-05-31 00:00:00 2024-05-31 15:49:22 Florentino Pappas Situationa l stress Situationa l stress Disease Resolve d 01-24 00:00: 00 2024-05-31 00:00:00 2024-05-31 15:49:22 Florentino Pappas 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 Disease Active 02-02 00:00: 00 2024-05-31 00:00:00 2024-05-31 15:49:22 Florentino Pappas Benign hypertensi ve kidney disease with CKD (chronic kidney disease) Benign hypertensi ve kidney disease with CKD (chronic kidney disease) Disease Active 01-27 00:00: 00 2024-05-31 00:00:00 2024-05-31 15:49:22 Florentino Pappas Asthma Asthma Disease Resolve d 28 00:00: 00 2024-05-31 00:00:00 2024-05-31 15:49:22 [facility] [place] [facility] Allergies, Adverse Reactions, Alerts Allergy Name Allergy Type Status Severity Reaction(s) Onset Date Inactive Date Treating Clinician Comments Source Trimetho prim Allergy to substanc e Active [facility]12-27 00:00: 00 Florentino Hensley Epic Hydrocod one Allergy to substanc e Active [facility] 12-27 00:00: 00 Florentino Hensley Epic Hydrocod one-Acet aminophe n Propensi ty to adverse reaction s Active [facility]11-17 00:00: 00 Sari Freemanold - Externa l Ibuprofe n Propensi ty to adverse reaction s Active 11-17 00:00: 00 Sari Boland - Externa l Isradipi ne Propensi ty to adverse reaction s Active 11-17 00:00: 00 Sari Boland - Externa l Metoclop ramide Propensi ty to adverse reaction s Active 11-17 00:00: 00 Sari Boland - Externa omar Niacin And Related Propensi ty to adverse [...] 00:00: 00 Sari Freemanold - Externa l Triamter amrita Propensi ty to adverse reaction s Active 11-17 00:00: 00 Sari Freemanold - Externa l Verapami l Propensi ty to adverse reaction s Active 11-17 00:00: 00 Sari Boland - Externa l Aspirin Propensi ty to adverse reaction s Active [facility]11-17 00:00: 00 Sari Boland - Externa l Atenolol Propensi ty to adverse reaction s Active [facility] 11-17 00:00: 00 Sari Seybold - Externa l Bismuth Subsalic ylate Propensi ty to adverse reaction s Active [facility]ives 11-17 00:00: 00 Sari Seybold - Externa l Metronid -Tetracy c-Bis Subsal Propensi ty to adverse reaction s Active [facility] 08-28 00:00: 00 [facility] Sulfa Antibiot ics Propensi ty to adverse reaction s Active [facility]ives 08-28 00:00: 00 [facility] Metronid -Tetracy c-Bis Subsal Drug Intolera nce Active Hives 08-28 00:00: 00 Florentino Hensley Epic Acetamin ophen-Co deine Drug Allergy Active Unknown 07-15 00:00: 00 [place] lighthead ed after taking on an empty stomach [facility] Bismuth Subsalic ylate Allergy to substanc e Active Hives 07-15 00:00: 00 [facility] Hydrocod one-Acet aminophe n Drug Allergy Active Hives 07-15 00:00: 00 [facility] Sulfate Allergy to substanc e Active Hives 07-15 00:00: 00 [facility] Rudy Inhibito rs Allergy to substanc e Active Rash 07-15 00:00: 00 [facility] Metoclop ramide Allergy to substanc e Active Hives, Other, Unknown 07-15 00:00: 00 [place] shaky [facility] Metronid azole Allergy to substanc e Active Hives 07-15 00:00: 00 [facility] Niacin Allergy to substanc e Active Hives, Rash, Unknown 07-15 00:00: 00 Mem[facility] Sulfa Antibiot ics Drug Intolera nce Active Hives 07-15 00:00: 00 Memv[facility] H[facility] Tetracyc line Allergy to substanc e Active Hives 07-15 00:00: 00 Mem[facility] Tramadol Allergy to substanc e Active Hives, Unknown 07-15 00:00: 00 Other Reaction( s): Confusion Feels groggy [facility] Triamter amrita Allergy to substanc e Active Other, Unknown 07-15 00:00: 00 Other Reaction( s): Faint Feeling Pruritis as well Memoria o[facility] Verapami l Allergy to substanc e Active Hives, Other, Unknown 07-15 00:00: 00 Tender gums [facility] Atenolol Allergy to substanc e Active [facility]ives 07-15 00:00: 00 [facility] Bismuth Allergy to substanc e Active Hives 07-15 00:00: 00 [facility] Bismuth Subsalic ylate Allergy to substanc e Active Hives 07-15 00:00: 00 Memviolet[facility] H[facility] Hydrocod one-Acet aminophe n Drug Intolera nce Active Hives 07-15 00:00: 00 Mem[facility] Rudy Inhibito rs Drug Intolera nce Active Cough, Rash 01-27 00:00: 00 cough Memoria omar [facility] Verapami l Allergy to substanc e Active Hives, Other, Unknown, Anaphylaxis 18 00:00: 00 Tender gums Memoria omar [facility] Hydrocod one-Acet aminophe n Drug Intolera nce Active Hives 0 3-23 00:00: 00 Itching all over 3.2012 [facility] Acetamin ophen-Co deine Drug Intolera nce Active Dizziness, Unknown 0 5-17 00:00: 00 [place] lighthead ed after taking on an empty stomach Lighthead edness - after pt took it in am on an empty stomach [facility] Atenolol Allergy to substanc e Active [facility]ives 0 6-19 00:00: 00 [facility] Aspirin Allergy to substanc e Active Hives 04-06 00:00: 00 [facility] Ibuprofe n Propensi ty to adverse reaction s Active Hives 04-06 00:00: 00 [facility] Penicill ins Propensi ty to adverse reaction s Active Hives 04-06 00:00: 00 [facility] Isradipi ne Allergy to substanc e Active Hives 04-06 00:00: 00 Light headed/ra sh Memvioletta Hens[facility] Epic Penicill ins Drug Allergy Active Hives 04-06 00:00: 00 Florentino Pappas Sulfamet hoxazole -Trimeth oprim Propensi ty to adverse reaction s Active Hives 04-06 00:00: 00 Florentino Hensley Epic Aspirin Propensi ty to adverse reaction s Active Hives 04-06 00:00: 00 Florentino Hensley Epic Ibuprofe n Allergy to substanc e Active Hives 04-06 00:00: 00 Florentino Hensley [facility] Bismuth Subsalic ylate Allergy to substanc e Active Hives 03-11 00:00: 00 Florentino Hensley Epic Ibuprofe n Allergy to substanc e Active [facility]ives 2002-07 00:00: 00 Florentino Hensley Epic Atenolol Allergy to substanc e Active [facility] Bismuth Subgalla te Allergy to substanc e Active [facility] Isradipi ne Allergy to substanc e Active [facility] Niacin Allergy to substanc e Active [facility] PENICILL INS Allergy to substanc e Active [facility] SULFA (SULFONA MIDE ANTIBIOT ICS) Allergy to substanc e Active [facility] Sulfamet hoxazole Allergy to substanc e Active [facility] Triamter amrita Allergy to substanc e Active [facility] Social History Social Habit Start Date Stop Date Quantity Comments Source Gender identity 2023-10-03 13:28:13 Identifies as female gender (finding) Castillo Pappas ASSERTION Possible [facility] Sexual orientation [facility] Alcoholic beverage intake 2024-08-26 00:00:00 2024-08-26 00:00:00 Ex-drinker (finding) [facility] History of Social function 2024-08-26 00:00:00 2024-08-26 00:00:00 [facility] Tobacco use and exposure 2023-03-24 00:00:00 2023-03-24 00:00:00 Smokeless tobacco non-user [facility] Alcohol intake 2023-03-24 00:00:00 2023-03-24 00:00:00 Ex-drinker (finding) [facility] Sex 2023-01-06 14:06:52 2023-01-06 14:06:52 Female (finding) [facility] Sex assigned at 1955 00:00:00 1955 00:00:00 F [facility] Smoking Status Start Date Stop Date Source Never smoked tobacco [facility] th Medications Ordered Medication Name Filled Medication Name Start Date Stop Date Current Medication? Ordering Clinician Indication Dosage Frequency Signature (SIG) Comments Components Source isosorbide mononitrate ER (Imdur) 30 MG 24 hr tablet 08-26 10:20: 32 Yes 30mg QD Take 30 mg by mouth 1 (one) time each day. [facility] losartan (Cozaar) 100 MG tablet 08-26 10:20: 32 Yes 100mg QD Take 100 mg by mouth 1 (one) time each day. [facility] furosemide (Lasix) 40 MG tablet 08-26 10:20: 32 Yes 40mg Take 40 mg by mouth 1 (one) time each day if needed. NEEDED FOR LEG SWELLING [facility] amLODIPine (Norvasc) 10 MG tablet 08-26 10:20: 32 Yes 10mg QD Take 10 mg by mouth 1 (one) time each day. [facility] cholecalcif nitesh (Vitamin D-3) 50 MCG (1999) capsule 08-26 10:20: 32 Yes 2000U QD Take 2,000 Units by mouth 1 (one) time each day. [facility] brimonidine (AlphaGAN) 0.2 % ophthalmic solution 08-26 10:20: 32 Yes INSTILL 1 DROP INTO RIGHT EYE ONLY EVERY 12 HOURS [facility] prednisoLON E acetate (Pred-Forte ) 1 % ophthalmic suspension 08-26 10:20: 32 Yes See administra tion instructio ns. PLEASE SEE ATTACHED FOR DETAILED DIRECTIONS [facility] atorvastati n (Lipitor) 40 MG tablet 2023-07 00:00: 00 Yes 40mg Take 40 mg by mouth every night. [facility] Glycerin-Po lysorbate 80 (REFRESH DRY EYE THERAPY OP) Glycerin-Po lysorbate 80 (REFRESH DRY EYE THERAPY OP) 2023-07 15:40: 56 Yes Administer into affected eye(s). Florentino Pappas potassium chloride CR (Klor-Con M20) 20 MEQ ER tablet potassium chloride CR (Klor-Con M20) 20 MEQ ER tablet 2023-07 15:40: 21 Yes TAKE 1 TABLET BY MOUTH DAILY NEEDED WITH FUROSEMIDE Florentino Pappas allopurinol (Zyloprim) 100 MG tablet allopurinol (Zyloprim) 100 MG tablet 2023-07 15:40: 21 Yes 200mg QD Take 200 mg by mouth 1 time each day. Florentino Pappas losartan (Cozaar) 100 MG tablet losartan (Cozaar) 100 MG tablet 2023-07 15:40: 21 Yes 100mg QD Take 100 mg by mouth 1 time each day. Florentino Pappas amLODIPine (Norvasc) 10 MG tablet amLODIPine (Norvasc) 10 MG tablet 2023-07 15:40: 21 Yes 10mg QD Take 10 mg by mouth 1 time each day. Florentino Pappas isosorbide mononitrate ER (Imdur) 30 MG 24 hr tablet isosorbide mononitrate ER (Imdur) 30 MG 24 hr tablet 2023-07 15:40: 21 Yes 30mg QD Take 30 mg by mouth 1 time each day. Florentino Pappas prednisoLON E acetate (Pred-Forte ) 1 % ophthalmic suspension prednisoLON E acetate (Pred-Forte ) 1 % ophthalmic suspension 2023-07 15:40: 21 Yes INSTILL 1 DROP IN SURGICAL EYE 4 TIMES A DAY X 1 WEEK, TAPER BY 1 DROP EACH WEEK Florentino Pappas brimonidine (AlphaGAN) 0.2 % ophthalmic solution brimonidine (AlphaGAN) 0.2 % ophthalmic solution 2023-07 15:40: 21 Yes INSTILL 1 DROP INTO BOTH EYES EVERY 12 HOURS Florentino Pappas pantoprazol e (ProtoNix) 40 MG EC tablet pantoprazol e (ProtoNix) 40 MG EC tablet 2023-07 014 00:00: 00 Yes TAKE 1 TABLET BY MOUTH DAILY 30MIN BEFORE BREAKFAST. STOP OMEPRAZOLE Florentino Pappas atorvastati n (Lipitor) 40 MG tablet atorvastati n (Lipitor) 40 MG tablet 2023-07 00:00: 00 Yes 40mg QD Take 40 mg by mouth 1 time each day. Florentino Hensley [facility] Atorvastati n Calcium 10 MG oral Tablet 11-17 08:49: 46 Yes 10mg Take 1 tablet (10 mg total) by mouth at bedtime. Sari nelson Cholecalcif nitesh (Vitamin D3) 50 MCG (1999) oral Capsule 11-17 08:49: 46 Yes Take by mouth. Sari nelson Omeprazole 10 MG oral Delayed Release Capsule 11-17 08:49: 46 Yes 10mg Take 1 capsule (10 mg total) by mouth daily. Sari nelson Famotidine (PEPCID) 20 MG oral tablet 09-22 00:00: 00 Yes 20mg Take 1 tablet (20 mg total) by mouth 2 times daily. Sari nelson furosemide (Lasix) 40 MG tablet furosemide (Lasix) 40 MG tablet 09-16 00:00: 00 Yes 40mg 40 mg. Florentino Hensley [facility] atorvastati n (Lipitor) 10 MG tablet 01-09 00:00: 00 Yes [facility] moxifloxaci n 0.5 % eye drops PLACE 1 DROP IN THE SURGICAL EYE 3 TIMES A DAY FOR 7 DAYS. moxifloxaci n 0.5 % eye drops PLACE 1 DROP IN THE SURGICAL EYE 3 TIMES A DAY FOR 7 DAYS. No moxifloxac in 0.5 % eye drops PLACE 1 DROP IN THE SURGICAL EYE 3 TIMES A DAY FOR 7 DAYS. [facility] sodium,pota ssium,mag sulfates 17.5 gram-3.13 gram-1.6 gram oral soln PLEASE SEE ATTACHED FOR DETAILED DIRECTIONS sodium,pota ssium,mag sulfates 17.5 gram-3.13 gram-1.6 gram oral soln PLEASE SEE ATTACHED FOR DETAILED DIRECTIONS No sodium,pot assium,mag sulfates 17.5 gram-3.13 gram-1.6 gram oral soln PLEASE SEE ATTACHED FOR DETAILED DIRECTIONS [facility] Immunizations Ordered Immunization Name Filled Immunization Name Date Status Comments Source Tdap 2021-02-22 00:00:00 [facility]pleted [facility] Tdap 2021-02-22 00:00:00 Completed PPD Test 2014-11-06 00:00:00 Completed [facility] PPD Test 2014-11-06 00:00:00 Completed Influenza, seasonal, injectable, with preservative (Afluria, Fluzone) 2014-05-04 00:00:00 Completed [facility] Influenza, seasonal, injectable, with preservative (Afluria, Fluzone) 2014-05-04 00:00:00 Completed Tdap 2006-11-26 00:00:00 [facility]pleted [facility] Tdap 2006-11-26 00:00:00 Completed Influenza, Unspecified 0 6 00:00:00 [facility]pleted [facility] Influenza, Unspecified 6 00:00:00 Completed Influenza, Unspecified 2002-04-13 2 00:00:00 [facility]pleted [facility] Influenza, Unspecified 2002-04-13 2 00:00:00 Completed Influenza, Unspecified 6 00:00:00 Completed [facility] Influenza, Unspecified 6 00:00:00 Completed Pneumococcal Polysaccharide PPV23 2001-05-11 00:00:00 Completed [facility] Pneumococcal Polysaccharide PPV23 2001-05-11 00:00:00 Completed PPD Test 2000-09-14 00:00:00 Completed [facility] PPD Test 2000-09-14 00:00:00 Completed TD (adult), 2 Lf tetanus toxoid, preservative free, adsorbed 1995-03-12 00:00:00 Completed [facility] TD (adult), 2 Lf tetanus toxoid, preservative free, adsorbed 1995-03-12 00:00:00 Completed PPD Test 1995-03-04 00:00:00 Completed [facility] PPD Test 1995-03-04 00:00:00 Completed Vital Signs Vital Name Observation Time Observation Value Comments S stephence Body height 2024-08-26 16:15:00 [facility] Body weight 2024-08-26 16:15:00 119.75 kg [facility] BMI 2024-08-26 16:15:00 44.62 kg/m2 [facility] Systolic blood pressure 2024-07-15 15:56:00 131 mm[Hg] [facility] Diastolic blood pressure 2024-07-15 15:56:00 95 mm[Hg] [facility] Epic Heart rate 2024-07-15 15:56:00 80 /min Memor ial Ayden Epic Body temperature 2024-07-15 15:56:00 36.33 Cara [facility] Respiratory rate 2024-07-15 15:56:00 16 /min [facility] Body height 2024-07-15 15:56:00 163.8 cm Sourav rial Ayden [facility] Body weight 2024-07-15 15:56:00 123.832 kg Sourav rial [facility] BMI 2024-07-15 15:56:00 46.14 kg/m2 Sourav rial Ayden Epic Oxygen saturation in Arterial blood by Pulse oximetry 2024-07-15 15:56:00 99 /min [facility] Systolic blood pressure 2024-07-15 15:56:00 131 mm[Hg] [facility] Diastolic blood pressure 2024-07-15 15:56:00 95 mm[Hg] [facility] Heart rate 2024-07-15 15:56:00 80 /min Memor ial [facility] Body temperature 2024-07-15 15:56:00 36.33 Cara [facility] Respiratory rate 2024-07-15 15:56:00 16 /min [facility] Body height 2024-07-15 15:56:00 163.8 [facility] 2024-07-15 15:56:00 123.832 kg Sourav rial Ayden [facility] BMI 2024-07-15 15:56:00 46.14 kg/m2 Sourav rial [place] [facility] Oxygen saturation in Arterial blood by Pulse oximetry 2024-07-15 15:56:00 99 /min [facility] Systolic blood pressure 2024-05-31 15:46:00 131 mm[Hg] [facility] Diastolic blood pressure 2024-05-31 15:46:00 82 mm[Hg] [facility] Heart rate 2024-05-31 15:46:00 81 /min Memor ial Ayden Epic Body temperature 2024-05-31 15:46:00 36.5 Cara [facility] Respiratory rate 2024-05-31 15:46:00 16 /min [facility] Body height 2024-05-31 15:46:00 163.8 cm Sourav Pressleyann Epic Body weight 2024-05-31 15:46:00 120.203 kg Sourav Pressleyann Epic BMI 2024-05-31 15:46:00 44.78 kg/m2 Sourav Pressleyann Epic Oxygen saturation in Arterial blood by Pulse oximetry 2024-05-31 15:46:00 97 /min [facility] Systolic blood pressure 2024-05-31 15:46:00 131 mm[Hg] [facility] Diastolic blood pressure 2024-05-31 15:46:00 82 mm[Hg] [facility] Heart rate 2024-05-31 15:46:00 81 /min [facility] Body temperature 2024-05-31 15:46:00 36.5 Cara [facility] Respiratory rate 2024-05-31 15:46:00 16 /min [facility] Body height 2024-05-31 15:46:00 163.8 cm Sourav Pressleyann [facility] Body weight 2024-05-31 15:46:00 120.203 kg Sourav Pressleyann Epic BMI 2024-05-31 15:46:00 44.78 kg/m2 Souravcherelle Pressleyann Epic Oxygen saturation in Arterial blood by Pulse oximetry 2024-05-31 15:46:00 97 /min [facility] BP Diastolic 2024-05-23 00:00:00 90 mm[Hg] [facility] BP Systolic 2024-05-23 00:00:00 144 mm[Hg] [facility] BMI (Body Mass Index) 2024-05-23 00:00:00 46.1 kg/m2 [facility] Body Weight 2024-05-23 00:00:00 268.3 [lb_av] [facility] Height 2024-05-23 00:00:00 64 [in_i] [facility] Systolic blood pressure 2023-11-18 13:44:00 141 mm[Hg] Sari Seybo ld - External Diastolic blood pressure 2023-11-18 13:44:00 87 mm[Hg] Sari Seybo ld - External Heart rate 2023-11-18 13:44:00 81 /min Nestor y Seybold - External Body temperature 2023-11-18 13:44:00 36.33 Cara Sari Seybold - External Respiratory rate 2023-11-18 13:44:00 16 /min Sari Stephensybold - External Body height 2023-11-18 13:44:00 162.6 cm Orly ey Seybold - External Body weight 2023-11-18 13:44:00 119.477 kg Orly ey Seybold - External BMI 2023-11-18 13:44:00 45.21 kg/m2 Orly ey Seybold - External Oxygen saturation in Arterial blood by Pulse oximetry 2023-11-18 13:44:00 97 /min Sari Freemano ld - External Systolic blood pressure 2023-03-24 16:12:00 130 mm[Hg] [facility] Diastolic blood pressure 2023-03-24 16:12:00 83 mm[Hg] [facility] Heart rate 2023-03-24 16:12:00 74 /min [facility] Body temperature 2023-03-24 16:12:00 36.5 Cara [facility] Body height 2023-03-24 16:12:00 [facility].6 [facility] Body weight 2023-03-24 16:12:00 119.75 [facility] BMI 2023-03-24 16:12:00 45.32 kg/m2 [facility] Procedure Date / Time Performed Performing Clinician Source CT angiogram brain 2024-08-26 00:00:[address] [facility] [address] angiogram brain 2024-05-31 00:00:00 [facility] Creatinine, Serum 2024-05-31 00:00:00 [facility] CT brain wo IV contrast 2024-05-31 00:00:00 [facility] US, transvaginal 2024-05-23 00:00:00 [facility] Cataract Surgery 2024-03-21 00:00:00 [facility] Procedure on Heart [facility] Encounters Start Date/Time End Date/Time Encounter Type Admission Type Attending [facility] Care Department Encounter ID Source 2023-02-10 12:55:12 Outpatient [facility] [id number] [facility] 2023-02-09 10:30:45 Outpatient [facility] [id number] [facility] 2023-01-20 09:51:31 Outpatient [facility] [id number] [facility] 2023-01-06 14:06:59 Outpatient [facility] [id number] [facility] 2025-08-22 11:00:00 2025-08-22 11:00:00 Outpatient JESSE REECE [facility] [id number] [facility] 2024-11-16 10:30:00 2024-11-16 10:30:00 Outpatient ARMIN NORWOOD [id number] Sari Boland 2024-08-26 00:00:00 2024-08-26 12:49:40 Orders Only Jesse Reece [facility] [id number] Memoria l [facility] 2024-08-26 10:30:00 2024-08-26 12:34:04 Telemedici ne Jesse Reece [facility] [address] [id number] [facility] 2024-07-21 00:00:00 2024-08-21 23:52:47 Telephone Elaine Tijerina [facility] [place] [id number] Memoria l [place] [facility] 2024-07-15 16:00:00 2024-07-15 16:39:04 Office Visit Dima Davis [id number] Memoria l Ayden [facility] 2024-07-15 15:19:44 2024-07-15 16:39:04 Outpatient Elective DIMA DAVIS [facility] M[facility] [id number] [facility] 2024-06-20 09:25:51 2024-06-20 14:23:32 Outpatient Elective M[facility]OUT M[facility]OUT [id number] [facility] 2024-06-20 09:26:08 2024-06-20 14:23:21 Outpatient Elective MHEOUT M[facility]OUT [id number] [facility] 2024-05-31 15:45:00 2024-05-31 16:25:17 Consult Dima Davis [id number] Florentino Hensley [facility] 2024-05-31 15:28:38 2024-05-31 16:25:17 Outpatient DIMA DAVIS MHEOUT MHEOUT [id number] [facility] 2024-05-23 00:00:00 2024-05-23 00:00:00 Anitha Sequeira MD: [address], [address], [place] [address] , Ph. [phone] [facility] [id number] 1111 [facility] 2023-11-18 08:30:00 2023-11-18 08:30:00 Outpatient ARMIN NORWOOD [id number] Sari [facility] 2023 16:20:00 2023 16:20:00 Outpatient SARI EDUARDO [id number] [facility] 2023 00:00:00 2023 00:00:00 Outpatient ARMIN NORWOOD [id number] Sari [facility] 2023-09-15 13:30:00 2023-09-15 13:30:00 Outpatient SURINDER REYNOSO [id number] Sari [facility] 2023-03-24 11:30:00 2023-03-24 11:50:00 Office Visit Jesse Reece [facility] [address] [id number] [facility] 2023-02-17 10:00:00 2023-02-17 10:00:00 Outpatient JESSE REECE [facility] [id number] [facility] Notes Date/Time Note Provider Source Referral ID Status Reason Start Date Expiration Date V isits Requested Visits Authorized [id number] Authorized 08/26/2024 02/22/2025 1 [id number] 12:49:45Upcoming Encounters Scheduled Orders Name Type Priority Associated Diagnoses Orde r Schedule CT angiogram brain Imaging Routine Cerebral aneurysm, nonruptured Expected: 08/26/2024, Expires: 08/26/2025 Health Maintenance Due Date Last Done Comments Bone Density Scan 1953 CT Colonography 1953 FIT-DNA 1953 FIT 1953 FOBT 1953 Medicare Annual Wellness (AWV) 1953 Sigmoidoscopy 1953 Diabetes: Foot Exam 11/05/1963 Diabetes: Retinopathy Screening 11/05/1963 Diabetes: Urine Protein Screening 1972 Hepatitis A Vaccines (1 of 2 - Risk 2-dose series) 1972 Pneumococcal Vaccine: 65+ Years (2 of 2 - PCV) 05/11/2002 05/11/2001 Zoster Vaccines (1 of 2) 11/05/2003 Hepatitis B Vaccines (1 of 3 - Risk 3-dose series) 2013 Respiratory Syncytial Virus (RSV) or >=60 (1 - Risk 60-74 years 1-dose series) 2013 Annual Physical 09/04/2021 09/04/2020, 0801/2019, 11/08/2014, Additional history exists Lipid Panel 12/19/2021 12/19/2020 Diabetes: Hemoglobin A1C 08/29/2022 02/26/2022, 08/13 Influenza Vaccine (#1) 2024 , 04/17/2003, 05/03/2002, Additional history exists Mammogram 03/14/2024 03/14/2022 DTaP/Tdap/Td Vaccines (3 - Td or Tdap) 02/22/2031 02/22/2021, 11/26/2006, 03/12/1995 Colonoscopy 02/28/2031 02/28/2021, 02/10, 08/19/2017 Colorectal Cancer Screening 02/28/2031 HIB Vaccines Aged Out No longer eligi ble based on patient's age to complete this topic HPV Vaccines Aged Out No longer eligi ble based on patient's age to complete this topic IPV Vaccines Aged Out No longer eligi ble based on patient's age to complete this topic Meningococcal Vaccine Aged Out No jose justice eligible based on patient's age to complete this topic Rotavirus Vaccines Aged Out No longer eligible based on patient's age to complete this topic [facility]Tzmyjkq1858-43-12 12:49:45 Diagnosis Cerebral aneurysm, nonruptur ed [facility] CenterQgkshan4231-82-53 12:49:45 [facility] CenterZfsozeb2215-36-65 10:30:00 Addended by: YE BETANCUR on: 08/26/2024 12:50 PM Modules accepted: Orders [facility]2025-02-09 23:56:49 [facility] CenterCmoqxvy3911-38-94 23:56:49Upcoming Encounters Health Maintenance Due Date Last Done Comments Bone Density Scan 1953 CT Colonography 1953 FIT-DNA 1953 FIT 1953 FOBT 1953 Medicare Annual Wellness (AWV) 1953 Sigmoidoscopy 1953 Diabetes: Foot Exam 11/05/1963 Diabetes: Retinopathy Screening 11/05/1963 Diabetes: Urine Protein Screening 1972 Hepatitis A Vaccines (1 of 2 - Risk 2-dose series) 1972 Pneumococcal Vaccine: 65+ Years (2 of 2 - PCV) 05/11/2002 05/11/2001 Zoster Vaccines (1 of 2) 11/05/2003 Hepatitis B Vaccines (1 of 3 - Risk 3-dose series) 2013 Respiratory Syncytial Virus (RSV) or >=60 (1 - Risk 60-74 years 1-dose series) 2013 Annual Physical 09/04/2021 09/04/2020, 01/2019, 11/08/2014, Additional history exists Lipid Panel 12/19/2021 12/19/2020 Diabetes: Hemoglobin A1C 08/29/2022 02/26/2022, 08/13 Influenza Vaccine (#1) 2024 4, 04/17/2003, 05/03/2002, Additional history exists Mammogram 03/14/2024 03/14/2022 DTaP/Tdap/Td Vaccines (3 - Td or Tdap) 02/22/2031 02/22/2021, 11/26/2006, 03/12/1995 Colonoscopy 02/28/2031 02/28/2021, 02/10, 08/19/2017 Colorectal Cancer Screening 02/28/2031 HIB Vaccines Aged Out No longer eligi ble based on patient's age to complete this topic HPV Vaccines Aged Out No longer eligi ble based on patient's age to complete this topic IPV Vaccines Aged Out No longer eligi ble based on patient's age to complete this topic Meningococcal Vaccine Aged Out No jose justice eligible based on patient's age to complete this topic Rotavirus Vaccines Aged Out No longer eligible based on patient's age to complete this topic [facility] CenterGiimmwg0596-15-12 23:56:49 [facility] CenterIhdfpvg0853-34-03 16:34:[address] Reece's office noted the patient is already established with Dr. Rodo Reece. She is asking if the referral to Dr. Mark Anthony Reece is for a second opinion or if the patient should continue with Dr. Rodo Reece, as both doctors work in the same field and location. H STRIPPER [facility] CenterUwbzfuf2146-29-02 17:32:09 [facility] CenterWkpisqg4899-49-36 17:32:09* Consultation (Routine) - Authorized Specialty Diagnoses / Procedures Referred By Contac t Referred To Contact Neurosurgery Diagnoses Cerebral aneurysm without rupture Dima Davis MD [address] [place] [address] Phone: tel: fax: Mark Anthony Reece MD [phone] [facility] [address] [place] [address] Phone: tel: fax: Referral ID Status Reason Start Date Expiration Date Visits Requested Visits Authorized [id number] Authorized Specialty Services Required 07/15/2024 01/11/2025 99 99 H STRIPPER [facility] Dfpgakx3195-20-21 17:32:09* Castillo HensleyKwrcsbc3221-06-72 17:32:09 Castillo Vieyra5-01-03 17:32:09* Dima Davis MD - 07/15/2024 4:00 PM WINCH STRIPPER History of Present Illness HPI Patient returns for reevaluation. CT angiogram demonstrates 2.4 mm aneurysm anterior communicating artery and the left A2. Family history of aneurysm rupture. Will ask for an opinion from neurosurgery. Allergies as of 07/15/2024 - Reviewed 07/15/2024 Allergen Reaction Noted Verapamil Hives, Other, Unknown, and Anaphylaxis 01/28/2012 Atenolol Hives 12/29/2005 Acetaminophen-codeine Dizziness and Unknown 11/26/2010 Aspirin Hives 04/06/2005 Bismuth Hives 07/15/2014 Bismuth subsalicylate Hives 03/11/2005 Hydrocodone Hives 12/28/2023 Hydrocodone-acetaminophen Hives 10/03/2011 Isradipine Hives 04/06/2005 Metoclopramide Hives, Other, and Unknown 07/15/2014 Snfnwaby-cibllamp-xqa subsal Hives 08/28/2017 Metronidazole Hives 07/15/2014 Penicillins Hives 04/06/2005 Sulfa antibiotics Hives 07/15/2014 Sulfamethoxazole-trimethoprim Hives 04/06/2005 Tetracycline Hives 07/15/2014 Tramadol Hives and Unknown 07/15/2014 Triamterene Other and Unknown 07/15/2014 Trimethoprim Hives 12/28/2023 Rudy inhibitors Cough and Rash 01/28/2012 Ibuprofen Hives 05/29/2003 Niacin Hives, Rash, and Unknown 07/15/2014 has a current medication list which includes the following prescription(s): allopurinol, amlodipine, atorvastatin, brimonidine, furosemide, glycerin-polysorbate 80, isosorbide mononitrate er, losartan, pantoprazole, potassium chloride cr, and prednisolone acetate. Vitals:07/15/24 1556 BP: (!) 131/95 Pulse: 80 Resp: 16 Temp: 36.3 ?C (97.4 ?F) SpO2: 99% Neurological Exam Mental Status Awake and alert. Speech is normal. Cranial NervesCN II: Visual acuity is normal. CN III, IV, : Extraocular movements intact bilaterally. Pupils equal round and reactive to light bilaterally. CN VII: Full and symmetric facial movement. CN XII: Tongue midline without atrophy or fasciculations. MotorStrength is 5/5 throughout all four extremities. SensoryLight touch is normal in upper and lower extremities. Temperature is normal in upper and lower extremities. Vibration is normal in upper and lower extremities. ReflexesDeep tendon reflexes: Symmetric. GaitCasual gait is normal including stance, stride, and arm swing. No results found for this or any previous visit. No MRI head results found for the past 12 months === 06/20/24 === CT BRAIN WO IV CONTRAST - Impression -CT BRAIN: 1. No acute intracranial abnormality identified. 2. Significant chronic left sphenoid sinusitis. CTA HEAD:1. 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 2. Mild stenosis of right distal M1 segment. 3. No large vessel occlusion or significant stenosis. Note: Vessel stenosis assessment is made utlizing NASCET criteria. Electronically signed by: Clem Beard MD 06/20/2024 04:09 PM WINCH STRIPPER RPWorkstation: [id number] Assessment & PlanDiagnoses and all orders for this visit: Cerebral aneurysm without rupture Neurosurgery opinion/consult Y [facility] CenterQkdlaaf7669-75-46 17:32:09Upcoming Encounters Scheduled Referrals Name Type Priority Associated Diagnoses Order Schedule Ambulatory referral to Neurosurgery Outpatient Referral Routine Cerebral aneurysm without rupture Expected: 07/15/2024 (Approximate), Expires: 07/15/2025 Health Maintenance Due Date Last Done Comments Bone Density Scan 1953 CT Colonography 1953 FIT-DNA 1953 FIT 1953 FOBT 1953 Medicare Annual Wellness (AWV) 1953 Sigmoidoscopy 1953 Diabetes: Foot Exam 11/05/1963 Diabetes: Retinopathy Screening 11/05/1963 Diabetes: Urine Protein Screening 1972 Hepatitis A Vaccines (1 of 2 - Risk 2-dose series) 1972 Pneumococcal Vaccine: 65+ Years (2 of 2 - PCV) 05/11/2002 05/11/2001 Zoster Vaccines (1 of 2) 11/05/2003 Hepatitis B Vaccines (1 of 3 - Risk 3-dose series) 2013 Respiratory Syncytial Virus (RSV) or >=60 (1 - Risk 60-74 years 1-dose series) 2013 Annual Physical 09/04/2021 09/04/2020, 0801/2019, 11/08/2014, Additional history exists Lipid Panel 12/19/2021 12/19/2020 Diabetes: Hemoglobin A1C 08/29/2022 02/26/2022, 08/13 Influenza Vaccine (#1) 2024 4, 04/17/2003, 05/03/2002, Additional history exists Mammogram 03/14/2024 03/14/2022 DTaP/Tdap/Td Vaccines (3 - Td or Tdap) 02/22/2031 02/22/2021, 11/26/2006, 03/12/1995 Colonoscopy 02/28/2031 02/28/2021, 02/10, 08/19/2017 Colorectal Cancer Screening 02/28/2031 HIB Vaccines Aged Out No longer eligi ble based on patient's age to complete this topic HPV Vaccines Aged Out No longer eligi ble based on patient's age to complete this topic IPV Vaccines Aged Out No longer eligi ble based on patient's age to complete this topic Meningococcal Vaccine Aged Out No jose justice eligible based on patient's age to complete this topic Rotavirus Vaccines Aged Out No longer eligible based on patient's age to complete this topic [facility] CenterXkmhmwl3311-28-35 17:32:09 Diagnosis Cerebral aneurysm without ru pture - Primary [facility] CenterTmhhkco2773-80-15 17:32:09 [facility]Difcsqf8620-67-61 17:32:09* Consultation (Routine) - Authorized Specialty Diagnoses / Procedures Referred By Contac t Referred To Contact Neurosurgery Diagnoses Cerebral aneurysm without rupture Dima Davis MD [address] [place] [address] Phone: tel: fax: Mark Anthony Reece MD [address] [facility] [address] [place] [address] Phone: tel: fax: Referral ID Status Reason Start Date Expiration Date Visits Requested Visits Authorized [id number] Authorized Specialty Services Required 07/15/2024 01/11/2025 99 99 H STRIPPER [facility] CenterYxrdsse2918-00-32 17:32:09* [facility] CenterBfetafz5423-26-71 17:32:09 [facility] CenterWowzodv2995-95-38 17:32:09* Dima Davis MD - 07/15/2024 4:00 PM WINCH STRIPPER History of Present Illness HPI Patient returns for reevaluation. CT angiogram demonstrates 2.4 mm aneurysm anterior communicating artery and the left A2. Family history of aneurysm rupture. Will ask for an opinion from neurosurgery. Allergies as of 07/15/2024 - Reviewed 07/15/2024 Allergen Reaction Noted Verapamil Hives, Other, Unknown, and Anaphylaxis 01/28/2012 Atenolol Hives 12/29/2005 Acetaminophen-codeine Dizziness and Unknown 11/26/2010 Aspirin Hives 04/06/2005 Bismuth Hives 07/15/2014 Bismuth subsalicylate Hives 03/11/2005 Hydrocodone Hives 12/28/2023 Hydrocodone-acetaminophen Hives 10/03/2011 Isradipine Hives 04/06/2005 Metoclopramide Hives, Other, and Unknown 07/15/2014 Nfkmqywe-lygkjmtk-tsk subsal Hives 08/28/2017 Metronidazole Hives 07/15/2014 Penicillins Hives 04/06/2005 Sulfa antibiotics Hives 07/15/2014 Sulfamethoxazole-trimethoprim Hives 04/06/2005 Tetracycline Hives 07/15/2014 Tramadol Hives and Unknown 07/15/2014 Triamterene Other and Unknown 07/15/2014 Trimethoprim Hives 12/28/2023 Rudy inhibitors Cough and Rash 01/28/2012 Ibuprofen Hives 05/29/2003 Niacin Hives, Rash, and Unknown 07/15/2014 has a current medication list which includes the following prescription(s): allopurinol, amlodipine, atorvastatin, brimonidine, furosemide, glycerin-polysorbate 80, isosorbide mononitrate er, losartan, pantoprazole, potassium chloride cr, and prednisolone acetate. Vitals:07/15/24 1556 BP: (!) 131/95 Pulse: 80 Resp: 16 Temp: 36.3 ?C (97.4 ?F) SpO2: 99% Neurological Exam Mental Status Awake and alert. Speech is normal. Cranial NervesCN II: Visual acuity is normal. CN III, IV, : Extraocular movements intact bilaterally. Pupils equal round and reactive to light bilaterally. CN VII: Full and symmetric facial movement. CN XII: Tongue midline without atrophy or fasciculations. MotorStrength is 5/5 throughout all four extremities. SensoryLight touch is normal in upper and lower extremities. Temperature is normal in upper and lower extremities. Vibration is normal in upper and lower extremities. ReflexesDeep tendon reflexes: Symmetric. GaitCasual gait is normal including stance, stride, and arm swing. No results found for this or any previous visit. No MRI head results found for the past 12 months === 06/20/24 === CT BRAIN WO IV CONTRAST - Impression -CT BRAIN: 1. No acute intracranial abnormality identified. 2. Significant chronic left sphenoid sinusitis. CTA HEAD:1. 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 2. Mild stenosis of right distal M1 segment. 3. No large vessel occlusion or significant stenosis. Note: Vessel stenosis assessment is made utlizing NASCET criteria. Electronically signed by: Clem Beard MD 06/20/2024 04:09 PM [facility] RPWorkstation: [id number] Assessment & PlanDiagnoses and all orders for this visit: Cerebral aneurysm without rupture [facility] 17:32:09Upcoming Encounters Scheduled Referrals Name Type Priority Associated Diagnoses Order Schedule Ambulatory referral to Neurosurgery Outpatient Referral Routine Cerebral aneurysm without rupture Expected: 07/15/2024 (Approximate), Expires: 07/15/2025 Health Maintenance Due Date Last Done Comments Bone Density Scan 1953 CT Colonography 1953 FIT-DNA 1953 FIT 1953 FOBT 1953 Medicare Annual Wellness (AWV) 1953 Sigmoidoscopy 1953 Diabetes: Foot Exam 11/05/1963 Diabetes: Retinopathy Screening 11/05/1963 Diabetes: Urine Protein Screening 1972 Hepatitis A Vaccines (1 of 2 - Risk 2-dose series) 1972 Pneumococcal Vaccine: 65+ Years (2 of 2 - PCV) 05/11/2002 05/11/2001 Zoster Vaccines (1 of 2) 11/05/2003 Hepatitis B Vaccines (1 of 3 - Risk 3-dose series) 2013 Respiratory Syncytial Virus (RSV) or >=60 (1 - Risk 60-74 years 1-dose series) 2013 Annual Physical 09/04/2021 09/04/2020, 08/01/2019, 11/08/2014, Additional history exists Lipid Panel 12/19/2021 12/19/2020 Diabetes: Hemoglobin A1C 08/29/2022 02/26/2022, 08/13 Influenza Vaccine (#1) 2024 4, 04/17/2003, 05/03/2002, Additional history exists Mammogram 03/14/2024 03/14/2022 DTaP/Tdap/Td Vaccines (3 - Td or Tdap) 02/22/2031 02/22/2021, 11/26/2006, 03/12/1995 Colonoscopy 02/28/2031 02/28/2021, 02/10, 08/19/2017 Colorectal Cancer Screening 02/28/2031 HIB Vaccines Aged Out No longer eligi ble based on patient's age to complete this topic HPV Vaccines Aged Out No longer eligi ble based on patient's age to complete this topic IPV Vaccines Aged Out No longer eligi ble based on patient's age to complete this topic Meningococcal Vaccine Aged Out No jose justice eligible based on patient's age to complete this topic Rotavirus Vaccines Aged Out No longer eligible based on patient's age to complete this topic [facility] CenterResbofj3088-88-60 17:32:09 Diagnosis Cerebral aneurysm without ru pture - Primary [facility] CenterChizglh4162-74-39 16:25:51* Imaging (Routine) - Authorized Specialty Diagnoses / Procedures Referred By Contac t Referred To Contact Radiology Diagnoses Cerebral aneurysm without rupture Procedures CT brain wo IV contrast Dima Davis MD [address] [place] [address] Phone: tel: fax: Referral ID Status Reason Start Date Expiration Date V isits Requested Visits Authorized [id number] Authorized 05/31/2024 11/27/2024 1 1 H STRIPPER* Imaging (Routine) - Authorized Specialty Diagnoses / Procedures Referred By Contac t Referred To Contact Radiology Diagnoses Cerebral aneurysm without rupture Procedures CT angiogram brain Dima Davis MD [address] [place] [address] Phone: tel: fax: Referral ID Status Reason Start Date Expiration Date V isits Requested Visits Authorized [id number] Authorized 05/31/2024 11/27/2024 1 1 H STRIPPER [facility] CenterIggsvvg2721-17-59 16:25:51* [facility] CenterKsbfnrz4206-40-20 16:25:51 [facility] CenterBpescxe9674-35-63 16:25:51* Dima Davis MD - 05/31/2024 3:45 PM WINCH STRIPPER Isael Christy is a 68 y.o. female presenting with cerebral aneurysm. History of Present Illness HPI Oldest daughter had a SAH and was recommended to family to be screened for aneurysm. Beginning around 2020 patient had MRI/MRA 2 aneurysms. L ICA 3.5mmx2.5mm, L A1/A2 2mmx 2.5 mm. Has HTN, well controlled and the family history of SAH. Had labs with PCP, normal. Moved to [place] a few years ago, last imaging about a year ago confirmed stability. Here for further evaluation. 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 Surgical HistoryShe has a past surgical history that includes MRI angiogram head wo IV contrast (08/25/2020); Colonoscopy (08/12/2022); Colonoscopy (06/27/2022); CT guided transvaginal transrectal fluid drain (02/19/2022); MRI angiogram head wo IV contrast (03/04/2021); Cardiac catheterization; Cataract extraction; and Glaucoma surgery. Family HistoryFamily History: Problem Relation Name Age of Onset Dementia Mother Alzheimer's disease Mother No Known Problems Father No Known Problems Sister No Known Problems Brother No Known Problems Mother's Sister No Known Problems Mother's Brother No Known Problems Father's Sister No Known Problems Father's Brother No Known Problems Maternal Grandmother No Known Problems Maternal Grandfather No Known Problems Paternal Grandmother Heart disease Paternal Grandfather No Known Problems Other Social History She reports that she has never smoked. She has never used smokeless tobacco. She reports that she does not currently use alcohol. She reports that she does not use drugs. AllergiesAspirin, Atenolol, Bismuth, Bismuth subsalicylate, Hydrocodone, Hydrocodone-acetaminophen, Ibuprofen, Isradipine, Metoclopramide, Fhxdlyho-okbsqpmf-epa subsal, Metronidazole, Penicillins, Sulfa antibiotics, Sulfamethoxazole-trimethoprim, Tetracycline, Tramadol, Triamterene, Trimethoprim, Verapamil, and Niacin MedicationsCurrent Outpatient Medications Medication Sig Dispense Refill allopurinol (Zyloprim) 100 MG tablet Take 200 mg by mouth 1 time each day. amLODIPine (Norvasc) 10 MG tablet Take 10 mg by mouth 1 time each day. atorvastatin (Lipitor) 40 MG tablet Take 40 mg by mouth 1 time each day. brimonidine (AlphaGAN) 0.2 % ophthalmic solution INSTILL 1 DROP INTO BOTH EYES EVERY 12 HOURS furosemide (Lasix) 40 MG tablet 40 mg. Glycerin-Polysorbate 80 (REFRESH DRY EYE THERAPY OP) Administer into affected eye(s). isosorbide mononitrate ER (Imdur) 30 MG 24 hr tablet Take 30 mg by mouth 1 time each day. losartan (Cozaar) 100 MG tablet Take 100 mg by mouth 1 time each day. pantoprazole (ProtoNix) 40 MG EC tablet TAKE 1 TABLET BY MOUTH DAILY 30MIN BEFORE BREAKFAST. STOP OMEPRAZOLE potassium chloride CR (Klor-Con M20) 20 MEQ ER tablet TAKE 1 TABLET BY MOUTH DAILY NEEDED WITH FUROSEMIDE prednisoLONE acetate (Pred-Forte) 1 % ophthalmic suspension INSTILL 1 DROP IN SURGICAL EYE 4 TIMES A DAY X 1 WEEK, TAPER BY 1 DROP EACH WEEK No current facility-administered medications for this visit. Review of Systems Neurological: Negative for tremors, seizures, weakness and headaches. Last Recorded Vitals Vitals: 05/31/24 1546 BP: 131/82 Pulse: 81 Resp: 16 Temp: 36.5 ?C (97.7 ?F) SpO2: 97% Physical ExamVitals reviewed. Constitutional: Appearance: Normal appearance. HENT: Head: Normocephalic. Eyes: General: Lids are normal. Extraocular Movements: Extraocular movements intact. Pupils: Pupils are equal, round, and reactive to light. Cardiovascular: Rate and Rhythm: Normal rate and regular rhythm. Pulmonary: Effort: Pulmonary effort is normal. Breath sounds: Normal breath sounds. Abdominal: General: Bowel sounds are normal. Musculoskeletal: General: Normal range of motion. Cervical back: Normal range of motion. Skin: General: Skin is warm and dry. Neurological: Motor: Motor strength is normal. Coordination: Coordination is intact. Deep Tendon Reflexes: Reflexes are normal and symmetric. Psychiatric: Mood and Affect: Mood normal. Speech: Speech normal. Thought Content: Thought content normal. Neurological ExamMental Status Awake, alert and oriented to person, place and time. Speech is normal. Cranial NervesCN II: Visual acuity is normal. Visual brink full to confrontation. CN III, IV, : Extraocular movements intact bilaterally. Normal lids and orbits bilaterally. Pupils equal round and reactive to light bilaterally. CN V: Facial sensation is normal. CN VII: Full and symmetric facial movement. CN VIII: Hearing is normal. CN IX, X: Palate elevates symmetrically. Normal gag reflex. CN XI: Shoulder shrug strength is normal. CN XII: Tongue midline without atrophy or fasciculations. MotorNormal muscle bulk throughout. Normal muscle tone. No abnormal involuntary movements. Strength is 5/5 throughout all four extremities. SensorySensation is intact to light touch, pinprick, vibration and proprioception in all four extremities. ReflexesDeep tendon reflexes are 2+ and symmetric in all four extremities. Coordination Eqcafl-fb-tspw, rapid alternating movements and kleo-pm-lacf normal bilaterally without dysmetria. GaitNormal casual, toe, heel and tandem gait. Relevant ResultsPrior imaging reports Assessment & Plan Diagnoses and all orders for this visit: Cerebral aneurysm without rupture - CT angiogram brain; Future - Creatinine, Serum; Future - CT brain wo IV contrast; Future Repeat CT scan of the brain and CT angiogram, check renal function. History of hypertension and family history of subarachnoid hemorrhage so might benefit from an opinion from neurosurgery even if the aneurysms are unchanged [facility]2024-11-19 16:25:51Scheduled Orders Health Maintenance Due Date Last Done Comments Bone Density Scan 1953 CT Colonography 1953 FIT-DNA 1953 FIT 1953 FOBT 1953 Medicare Annual Wellness (AWV) 1953 Sigmoidoscopy 1953 Diabetes: Foot Exam 11/05/1963 Diabetes: Retinopathy Screening 11/05/1963 Diabetes: Urine Protein Screening 1972 Hepatitis A Vaccines (1 of 2 - Risk 2-dose series) 1972 Pneumococcal Vaccine: 65+ Years (2 of 2 - PCV) 05/11/2002 05/11/2001 Zoster Vaccines (1 of 2) 11/05/2003 Hepatitis B Vaccines (1 of 3 - Risk 3-dose series) 2013 Respiratory Syncytial Virus (RSV) or >=60 (1 - Risk 60-74 years 1-dose series) 2013 Annual Physical 09/04/2021 09/04/2020, 02/16/2019 Lipid Panel 12/19/2021 12/19/2020 Diabetes: Hemoglobin A1C 08/29/2022 02/26/2022, 08/13 Influenza Vaccine (#1) 2024 4, 04/17/2003, 05/03/2002, Additional history exists Mammogram 03/14/2024 03/14/2022 DTaP/Tdap/Td Vaccines (3 - Td or Tdap) 02/22/2031 02/22/2021, 11/26/2006, 03/12/1995 Colonoscopy 02/28/2031 02/28/2021, 02/10, 08/19/2017 Colorectal Cancer Screening 02/28/2031 HIB Vaccines Aged Out No longer eligi ble based on patient's age to complete this topic HPV Vaccines Aged Out No longer eligi ble based on patient's age to complete this topic IPV Vaccines Aged Out No longer eligi ble based on patient's age to complete this topic Meningococcal Vaccine Aged Out No jose justice eligible based on patient's age to complete this topic Rotavirus Vaccines Aged Out No longer eligible based on patient's age to complete this topic [facility] CenterFvrjldm3436-15-74 16:25:51 Diagnosis Cerebral aneurysm without ru pture - Primary [facility] CenterZhgcszj2696-89-98 16:25:51 [facility] CenterYellago4061-43-95 08:50:55 Chief Complaint Patient presents with Consultation Pt has 2 aneurysms Height 5'4 per pt TIMUR Singh [facility]
[2024-09-11 10:23] LABS: Absolute Eosinophils 0.1 K/uL (0-0.5); Absolute Lymphocytes (CBC) 1.9 K/uL (0.7-4.9); Absolute Monocytes 0.4 K/uL (0.1-1.3); Absolute Neutrophil 3.4 K/uL (1.8-8.0); Basophils % 0.6 % (0-1.3); Eosinophils % 1.3 % (0-4.4); Hematocrit 39.5 % (36.0-45.0); Hemoglobin 13.4 g/dL (12.0-15.0); Lymphocytes % 32.9 % (15.3-44.8); MCH 32.4 pg (27.0-35.0); MCHC 33.9 g/dL (32.0-36.0); MCV 95.5 fL (80-100); MPV 8.2 fL (7.6-11.3); Monocytes % 6.8 % (3.3-12.3); Neutrophils % 58.4 % (41.7-73.7); Nucleated Red Blood Cells % 0.1 % (0-0); Platelets 245 thou/uL (152-406); RBC Red Blood Cell Count 4.14 M/uL (3.86-4.86); Red Cell Distribution Width 14.8 % (12.1-15.2)
--- NOTE | 2024-09-11 10:36 | RAD REPORT ---
EXAMINATION: ONE VIEW CHEST XR CLINICAL INDICATION: CHEST PAIN TECHNIQUE: Frontal chest projection is submitted. Examination is limited by patient positioning and t echnique. COMPARISON: 04/18/2024 FINDINGS: The lungs are well inflated and clear. The heart is upper limit of normal in size. No displaced fract ures identified. IMPRESSION: No acute intrathoracic abnormalities.
[2024-09-11 10:43] LABS: Influenza A Ag Negative; Influenza B Ag Negative; SARS-CoV-2 Antigen Rapid Res Negative (Negative)
[2024-09-11 11:25] LABS: Anion Gap 8.7 mEq/L (5.0-15.0); Potassium 3.7 mEq/L (3.5-5.1); Troponin High Sensitivity 6.5 pg/mL (<58.9)
--- NOTE | 2024-09-11 11:34 | EDPHYS ---
Physician Documentation [facility] Name: Marlyn Christy Age: 68 yrs Sex: Female : 1955 Arrival Date: 09/11/2024 Time: 09:15 Bed 5 Private MD: ED Physician Luis Rehman HPI: 09/11 09:33 This 68 yrs old Black Female presents to ER via Ambulatory with complaints of Headache, sb4 Nausea, Congestion. 09:33 headache x 2 days. started experiencing congestion, nausea, fatigue last night. mild sb4 cough. no diarrhea or vomiting. no chest pain. noted to be short of breath after ambulating. Historical: - Allergies: 09:27 Niacin; jl7 09:27 PENICILLINS; jl7 09:27 Sulfa (Sulfonamide Antibiotics); jl7 - PMHx: 09:27 Hypertensive disorder; Hypercholesterolemia; jl7 - Immunization history:: Adult Immunizations unknown. - Infectious Disease History:: Denies. - Social history:: Smoking status: Patient denies any tobacco usage or history of. ROS: 09:35 MS/Extremity: Negative for injury and deformity, sb4 09:35 Constitutional: Positive for fatigue, malaise, 09:35 Respiratory: Positive for cough, 09:35 Abdomen/GI: Positive for nausea, 09:35 Neuro: Positive for headache, 09:40 All other systems are negative, sb4 Exam: 09:40 Head/Face: Normocephalic, atraumatic. Eyes: Extra-ocular motions intact. Periorbital sb4 areas with no swelling, redness, or edema. ENT: Mucous membranes moist. Cardiovascular: Regular rate and rhythm with a normal S1 and S2. Respiratory: No increased work of breathing, no retractions or nasal flaring. Abdomen/GI: Soft, non-tender, no distension. Skin: Warm, dry with normal turgor. Normal color with no rashes, no lesions, and no evidence of cellulitis. 09:40 Constitutional: The patient appears in no acute distress, alert, awake, Vital Signs: 09:26 Weight 117.93 kg; Height 5 ft. 4 in. ; Pain 2/10; jl7 10:11 BP 139 / 88; Pulse 71; Resp 20; Temp 98(O); Pulse Ox 99% on R/A; Pain 0/10; le1 11:48 BP 139 / 81; Pulse 70; Resp 16; Temp 98(O); Pulse Ox 98% on R/A; Pain 0/10; le1 09:26 Body Mass Index 44.63 (117.93 kg, 162.56 cm) jl7 09:26 Pain Scale: Adult jl7 10:11 Pain Scale: Adult le1 11:48 Pain Scale: Adult le1 [place] Coma Score: 11:36 Eye Response: spontaneous(4). Motor Response: obeys commands(6). Verbal Response: sb4 oriented(5). Total: 15. MDM: 09:20 Medical Screening Exam initiated sb4 11:36 Data reviewed: vital signs, nurses notes, lab test result(s), EKG, radiologic studies, sb4 and as a result, I will discharge patient. Counseling: I had a detailed discussion with the patient and/or guardian regarding the historical points, exam findings, and any diagnostic results supporting the discharge/admit diagnosis, the presence of at least one elevated blood pressure reading (>120/80) during this emergency department visit, lab results, radiology results, the need for outpatient follow up, for definitive care, to return to the emergency department if symptoms worsen or persist or if there are any questions or concerns that arise at home. 09/11 09:31 Order name: COVID-19 Ag + Flu A+B Ag; Complete Time: 10:45 sb4 09/11 09:33 Order name: Basic Metabolic Panel; Complete Time: 11:26 sb4 09/11 09:33 Order name: CBC with Diff; Complete Time: 10:27 sb4 09/11 09:33 Order name: Troponin HS; Complete Time: 11:26 sb4 09/11 09:33 Order name: XRAY Chest (1 view); Complete Time: 10:37 sb4 09/11 09:33 Order name: Cardiac monitoring; Complete Time: 10:11 sb4 09/11 09:33 Order name: EKG - Nurse/Tech; Complete Time: 10:11 sb4 09/11 09:33 Order name: IV Saline Lock; Complete Time: 10:11 sb4 09/11 09:33 Order name: Labs collected and sent; Complete Time: 10:11 sb4 09/11 09:33 Order name: O2 Per Protocol; Complete Time: 10:11 sb4 09/11 09:33 Order name: O2 Sat Monitoring; Complete Time: 10:11 sb4 09/11 10:31 Order name: Misc. Order: recollect green top; Complete Time: 10:48 sp EC:54 Rate is 75 beats/min. Rhythm is regular, Normal Sinus Rhythm. [place] interval is normal at sb4 182 msec. QRS interval is normal at 84 msec. QT interval is normal at 396 msec. No Q waves. T waves are Normal. No ST changes noted. Clinical impression: Normal ECG. Interpreted by me. Reviewed by me. Administered Medications: No medications were administered Disposition: 13:09 Co-signature as Attending Physician, Luis Rehman MD I reviewed the patient's care rt provided by the Advanced Practice Provider and agree with the diagnosis and treatment plan. Disposition Summary: 09/11/24 11:33 Discharge Ordered Notes: Location: Home sb4 Problem: new sb4 Symptoms: have improved sb4 Condition: Stable sb4 Diagnosis - Acute frontal sinusitis, unspecified sb4 Followup: sb4 - With: Emergency Department - When: As needed - Reason: Trouble breathing, Worsening of condition Discharge Instructions: - Discharge Summary Sheet sb4 - Sinusitis, Adult sb4 Forms: - Antibiotic Education sb4 - Patient Portal Instructions sb4 - Leadership Thank You Letter sb4 Prescriptions: - Zithromax Z-Regino 250 mg Oral Tablet - take 1 tablet ORAL route as directed for 5 days Day 1 - take two (2) tablets sb4 one time. Day 2, 3, 4 , 5 take one (1) tablet once daily.; 6 tablet; Refills: 0, Product Selection Permitted Signatures: Dispatcher [employer] EDMS Goldie Weinstein Jahala, RN RN renu7 Carolyn Huang PARemberto PA-C sb4 Luis Rehman MD MD rt Corrections: (The following items were deleted from the chart) 09:34 09:34 Chest Single View+[email or web address] ordered. EDMS EDMS
--- NOTE | 2024-09-11 11:34 | ER ---
Nurse's Notes [facility] Name: Marlyn Chirsty Age: 68 yrs Sex: Female : 1955 Arrival Date: 09/11/2024 Time: 09:15 Bed 5 Private MD: Diagnosis: Acute frontal sinusitis, unspecified Presentation: 09/11 09:26 Chief complaint: Patient states: Congestion, [place], nausea x 2 days. Coronavirus screen: [facility] Client presents with at least one sign or symptom that may indicate coronavirus-19. Ebola Screen: No symptoms or risks identified at this time. Risk Assessment: Do you want to hurt yourself or someone else? Patient reports no desire to harm self or others. Onset of symptoms was September 09, 2024. 09:26 Method Of Arrival: Ambulatory [facility] 10:14 Initial Sepsis Screen: Does the patient meet any 2 criteria? No. Patient's initial le1 sepsis screen is negative. Does the patient have a suspected source of infection? No. Patient's initial sepsis screen is negative. 10:14 Acuity: BRITANY 3 le1 Triage Assessment: 09:27 Headache History: The patient has had previous headaches and this one is similar to [facility] previous episodes. General: Appears in no apparent distress. uncomfortable, Behavior is calm, cooperative, appropriate for age. Pain: Complains of pain in [place] Pain currently is 2 out of 10 on a pain scale. Pain began 2-3 days ago. Also complains of nausea. Neuro: [place] Agitation-Sedation Scale (RASS): 0 - Alert and Calm Level of Consciousness is awake, alert, obeys commands, Oriented to person, place, time, situation. Historical: - Allergies: 09:27 Niacin; jl7 09:27 PENICILLINS; 7 09:27 Sulfa (Sulfonamide Antibiotics); 7 - PMHx: 09:27 Hypertensive disorder; Hypercholesterolemia; jl7 - Immunization history:: Adult Immunizations unknown. - Infectious Disease History:: Denies. - Social history:: Smoking status: Patient denies any tobacco usage or history of. Screenin:12 [facility] ED Fall Risk Assessment (Adult) History of falling in the last 3 months, le1 including since admission No falls in past 3 months (0 pts) Confusion or Disorientation No (0 pts) Intoxicated or Sedated No (0 pts) Impaired Gait No (0 pts) Mobility Assist Device Used No (0 pt) Altered Elimination No (0 pt) Score/Fall Risk Level 0 - 2 = Low Risk Oriented to surroundings, Maintained a safe environment, Educated pt \T\ family on fall prevention, incl call for assistance when getting out of bed, Assessed \T\ reinforced patient's understanding of fall precautions, Hourly rounding (assess needs \T\ fall precautionary measures) done, Used ambulatory aids as needed (educated on \T\ assisted with). Abuse screen: Denies threats or abuse. Denies injuries from another. Nutritional screening: No deficits noted. Tuberculosis screening: No symptoms or risk factors identified. Assessment: 10:12 General: Appears in no apparent distress. Behavior is calm, cooperative. Pain: Denies le1 pain. Neuro: No deficits noted. Cardiovascular: No deficits noted. Respiratory: No deficits noted. GI: No deficits noted. : No deficits noted. EENT: No deficits noted. Musculoskeletal: No deficits noted. Vital Signs: 09:26 Weight 117.93 kg; Height 5 ft. 4 in. ; Pain 2/10; jl7 10:11 BP 139 / 88; Pulse 71; Resp 20; Temp 98(O); Pulse Ox 99% on R/A; Pain 0/10; le1 11:48 BP 139 / 81; Pulse 70; Resp 16; Temp 98(O); Pulse Ox 98% on R/A; Pain 0/10; le1 09:26 Body Mass Index 44.63 (117.93 kg, 162.56 cm) jl7 09:26 Pain Scale: Adult jl7 10:11 Pain Scale: Adult le1 11:48 Pain Scale: Adult le1 [place] Coma Score: 11:36 Eye Response: spontaneous(4). Motor Response: obeys commands(6). Verbal Response: sb4 oriented(5). Total: 15. ED Course: 09:17 Patient arrived in ED. im 09:18 Carolyn Huang PA-C is PHCP. sb4 09:18 Luis Rehman MD is Attending Physician. sb4 09:27 Arm band placed on right wrist. jl7 09:35 Amee Abraham, RN is Primary Nurse. le1 10:13 Patient has correct armband on for positive identification. Placed in gown. Bed in low le1 position. Call light in reach. Side rails up X2. Adult w/ patient. Provided Education on: Informed patient to use call light if needing assistance. 10:13 Initial lab(s) drawn, by me, sent to lab. EKG done, by ED staff, reviewed by Carolyn Huang PA-C COVID swab sent to lab. Flu and/or RSV swab sent to lab. Inserted saline lock: 20 gauge in right forearm, using aseptic technique. Blood collected. Flushed with 10 mL NS. 10:14 Triage completed. le1 10:32 XRAY Chest (1 view) In Process Unspecified. EDMS 11:48 No provider procedures requiring assistance completed. IV discontinued, intact, le1 bleeding controlled, No redness/swelling at site. Pressure dressing applied. Administered Medications: No medications were administered Medication: 11:49 VIS not applicable for this client. le1 Outcome: 11:33 Discharge ordered by . sb4 11:49 Discharged to home ambulatory, le1 11:49 Condition: good 11:49 Discharge instructions given to patient, Instructed on discharge instructions, follow up and referral plans. medication usage, Demonstrated understanding of instructions, follow-up care, medications, Prescriptions given X 1, 11:49 Patient left the ED. le1 Signatures: Dispatcher [employer] EDMS Efren Biggs, RN RN Carolyn Gerber, ROOPA [email or web address] Lindsey Tony LaKendric, RN RN le1
[2024-09-11 11:55] VITALS: TEMP 98
[2024-09-11 11:57] VITALS: BP 139/81; O2SAT 98
--- NOTE | 2024-09-12 12:06 | EKG ---
Test Date: 2024-09-11 Test Time: 09:49:58 Sales Account Associate: [id number] MEASUREMENT RESULTS: Intervals: Rate: 75 [place]: 182 QRSD: 84 QT: 396 QTc: 442 [place]: P: 56 [place]: 182 QRS: 20 T: 60 INTERPRETIVE STATEMENTS: Normal sinus rhythm Normal ECG Compared to ECG 04/19/2024 09:25:43 Atrial premature complex(es) no longer present Electronically Signed On 09-12-24 12:03:10 TELEPHONE LINEMAN by Aaron Singh
== END 2024-09-11 11:49 | disposition home or self-care (01) ==
LOC: ER 09:15
DX: J01.10 Acute frontal sinusitis, unspecified (principal); Z11.52 Encounter for screening for COVID-19
CPT/HCPCS: 36415; 71045; 80048; 84484; 85025; 87428; 93005; 99284

== ENCOUNTER 2024-11-11 05:42 | Emergency (ER) | payer OTHER, MEDICARE ==
--- OUTSIDE RECORDS SUMMARY | 2024-11-11 05:47 | XMS REPORT | Continuity of Care Document ---
Author Name Unknown Address [address] [place] [address] Organization [facility] [place] Address [address] [place] [address] Care Team Providers Care Core Drill Operator Helper Name Role Phone Link Love Primary Care Physician [phone] JESSE REECE Attending Clinician ARMIN Frias Attending Clinician Carisa Davis MD, Dima Harvey Attending Clinician [phone] DIMA DAVIS Attending Clinician Unavail Elaine Patino MA Attending Clinician SURINDER Morgan Attending Clinician Radha kaplan Payers Payer Name Policy Type Policy Number Effective Date Expirati on Date Source MEDICARE PART A AND B [id number] 2018 00:00:00 MEDICARE-PART B 5 [id number] 2023 00:00:00 [employer]/[place] 4 [id number] 2022 00:00:00 MEDICARE PART A AND B Medicare [id number] 2024 00:00:00 Problems Condition Name Condition Details [...] Disease Active 01-27 00:00: 00 Florentino Pappas NAFL (nonalcoho lic fatty liver) NAFL (nonalcoho lic fatty liver) Disease Active 01-27 00:00: 00 Florentino Pappas GERD (gastroeso phageal reflux disease) GERD (gastroeso phageal reflux disease) Disease Active 11-26 00:00: 00 Florentino Pappas Gout Gout Disease Active 11-26 00:00: 00 Florentino Pappas Hyperchole sterolemia Hyperchole sterolemia Disease Active 11-26 00:00: 00 Florentino Pappas Stricture and stenosis of esophagus Stricture and stenosis of esophagus Disease Active 10-29 00:00: 00 Florentino Pappas Pelvic pain in female Pelvic pain in female Disease Resolve d 01-24 00:00: 00 2024-05-31 00:00:00 2024-05-31 15:49:22 Florentino Pappas Situationa l stress Situationa l stress Disease Resolve d 7 00:00: 00 2024-05-31 00:00:00 2024-05-31 15:49:22 Florentino [...] Florentino Pappas Asthma Asthma Disease Resolve d 1996-0 3-28 00:00: 00 2024-05-31 00:00:00 2024-05-31 15:49:22 [facility] [place] Epic Allergies, Adverse Reactions, Alerts Allergy Name Allergy Type Status Severity Reaction(s) Onset Date Inactive Date Treating Clinician Comments Source Trimetho prim Allergy to substanc e Active [facility]12-27 00:00: 00 [facility] [place] Epic Hydrocod one Allergy to substanc e Active [facility]12-27 00:00: 00 [facility] [place] Epic Hydrocod one-Acet aminophe n Propensi ty to adverse reaction s Active [facility]11-17 00:00: 00 Sari Boland - Externa l Ibuprofe n Propensi ty to adverse reaction s Active 11-17 00:00: 00 Sari Boland - Externa l Isradipi ne Propensi ty to adverse reaction s Active 11-17 00:00: 00 Sari Boland - Externa omar Metoclop ramide Propensi ty to adverse reaction s Active 11-17 00:00: 00 Sari Boland - Externa l Niacin And Related Propensi ty to adverse reaction s Active 11-17 00:00: 00 Sari Boland - Externa l Penicill ins Propensi ty to adverse reaction s Active 11-17 00:00: 00 Sari Boland - Externa l Sulfa Drugs Propensi ty to adverse reaction s Active 11-17 00:00: 00 Sari Freemanold - Externa l Sulfamet hoxazole -Trimeth oprim [...] 00:00: 00 Sari Seybold - Externa l Aspirin Propensi ty to adverse reaction s Active Hives 11-17 00:00: 00 Sari Seybold - Externa l Atenolol Propensi ty to adverse reaction s Active Hives 11-17 00:00: 00 Sari Seybold - Externa l Bismuth Subsalic ylate Propensi ty to adverse reaction s Active Hives 11-17 00:00: 00 Sari Stephensybold - Externa l Metronid -Tetracy c-Bis Subsal Drug Intolera nce Active Hives 08-28 00:00: 00 Memvioletta l [place] Epic Metronid -Tetracy c-Bis Subsal Propensi ty to adverse reaction s Active Hives 08-28 00:00: 00 [facility] Sulfa Antibiot ics Propensi ty to adverse reaction s Active Hives 08-28 00:00: 00 [facility] Metoclop ramide Allergy to substanc e Active Hives, Other, Unknown 07-15 00:00: 00 [place] shaky Memvioletta Pappas Metronid azole Allergy to substanc e Active Hives 07-15 00:00: 00 [facility] [place] Epic Niacin Allergy to substanc e [...] Reaction( s): Faint Feeling Pruritis as well Florentino [place] Epic Verapami l Allergy to substanc e Active Hives, Other, Unknown 07-15 00:00: 00 Tender gums [facility] [place] [facility] Atenolol Allergy to substanc e Active Hives 07-15 00:00: 00 Fl[facility]ino [place] [facility] Bismuth Allergy to substanc e Active Hives 07-15 00:00: 00 Fl[facility]ino [place] [facility] Bismuth Subsalic ylate Allergy to substanc e Active Hives 07-15 00:00: 00 Florentino [place] [facility] Hydrocod one-Acet aminophe n Drug Intolera nce Active Hives 07-15 00:00: 00 Florentino [place] Epic Acetamin ophen-Co deine Drug Allergy Active Unknown 07-15 00:00: 00 [place] lighthead ed after taking on an empty stomach [facility] Bismuth Subsalic ylate Allergy to substanc e Active Hives 07-15 00:00: 00 [facility] Hydrocod one-Acet aminophe n Drug Allergy Active Hives 07-15 00:00: 00 [facility] Sulfate Allergy to substanc e Active Hives 07-15 00:00: 00 [facility] Rudy Inhibito rs Allergy to substanc e Active Rash 07-15 00:00: 00 [facility] Rudy Inhibito rs Drug Intolera nce Active Cough, Rash 0 01-27 00:00: 00 cough Memv[facility]ta [place] [facility] Verapami l Allergy to substanc e Active Hives, Other, Unknown, Anaphylaxis 0 18 00:00: 00 Tender gums Florentino [place] [facility] Hydrocod one-Acet aminophe n Drug Intolera nce Active Hives 0 3-23 00:00: 00 Itching all over 3.2012 Florentino [place] Epic Acetamin ophen-Co deine Drug Intolera nce Active Dizziness, Unknown 17 00:00: 00 [place] lighthead ed after taking on an empty stomach Lighthead edness - after pt took it in am on an empty stomach Florentino [place] Atenolol Allergy to substanc e Active Hives 0 -19 00:00: 00 Fl[facility] [place] Epic Isradipi ne Allergy to substanc e Active Hives 0 04-06 00:00: 00 Light headed/ra sh Florentino [place] Epic Penicill ins Drug Allergy Active Hives 04-06 00:00: 00 Florentino Pappas Sulfamet hoxazole -Trimeth oprim Propensi ty to adverse reaction s Active Hives 0 04-06 00:00: 00 Florentino Pappas Aspirin Propensi ty to adverse reaction s Active Hives 0 04-06 00:00: 00 Florentino Pappas Ibuprofe n Allergy to substanc e Active Hives 0 04-06 00:00: 00 Florentino Pappas Aspirin Allergy to substanc e Active Hives 0 04-06 00:00: 00 [facility] Ibuprofe n Propensi ty to adverse reaction s Active Hives 0 04-06 00:00: 00 [facility] Penicill ins Propensi ty to adverse reaction s Active Hives 0 04-06 00:00: 00 [facility] Bismuth Subsalic ylate Allergy to substanc e Active Hives 0 8 00:00: 00 Fl[facility] [place] [facility] Ibuprofe n Allergy to substanc e Active Hives 2002- 1-17 00:00: 00 Florentino Pappas Atenolol Allergy to substanc e Active [place] [...] female gender (finding) Castillo Pappas ASSERTION Possible [facility] Sexual orientation [facility] Alcoholic beverage intake 2024-08-26 00:00:00 2024-08-26 00:00:00 Ex-drinker (finding) [facility] History of Social function 2024-08-26 00:00:00 2024-08-26 00:00:00 [facility] Tobacco use and exposure 2024-05-31 00:00:00 2024-05-31 00:00:00 Smokeless tobacco non-user [facility] Alcohol intake 2023-03-24 00:00:00 2023-03-24 00:00:00 Ex-drinker (finding) [facility] Sex 2023-01-06 14:06:52 2023-01-06 14:06:52 Female (finding) [facility] Sex assigned at 1955 00:00:00 1955 00:00:00 F [facility] Smoking Status Start Date Stop Date Source Never smoked tobacco Florentino nelson [facility] Medications Ordered Medication Name Filled Medication Name Start Date Stop Date Current Medication? Ordering Clinician Indication Dosage Frequency Signature (SIG) Comments Components Source isosorbide mononitrate ER (Imdur) 30 MG 24 hr tablet 08-26 10:20: 32 Yes 30mg QD Take 30 mg by mouth 1 (one) time each day. [facility] losartan (Cozaar) 100 MG tablet 08-26 10:20: 32 Yes 100mg QD Take 100 mg by mouth 1 (one) time each day. [facility] furosemide (Lasix) 40 MG tablet 08-26 10:20: 32 Yes 40mg Take 40 mg by mouth 1 (one) time each day if needed. NEEDED FOR LEG SWELLING [facility] amLODIPine (Norvasc) 10 MG tablet 08-26 10:20: 32 Yes 10mg QD Take 10 mg by mouth 1 (one) time each day. [facility] cholecalcif nitesh (Vitamin D-3) 50 MCG (2000 UT) capsule 08-26 10:20: 32 Yes 2000U QD Take 2,000 Units by mouth 1 (one) time each day. [facility] brimonidine (AlphaGAN) 0.2 % ophthalmic solution 08-26 10:20: 32 Yes INSTILL 1 DROP INTO RIGHT EYE ONLY EVERY 12 HOURS [facility] prednisoLON E acetate (Pred-Forte ) 1 % ophthalmic suspension 08-26 10:20: 32 Yes See administra tion instructsanford ns. PLEASE SEE ATTACHED FOR DETAILED DIRECTIONS [facility] atorvastati n (Lipitor) 40 MG tablet 2023-07 00:00: 00 Yes 40mg Take 40 mg by mouth every night. [facility] Glycerin-Po lysorbate 80 (REFRESH DRY EYE THERAPY [...] e (ProtoNix) 40 MG EC tablet 2023-07 0-14 00:00: 00 Yes TAKE 1 TABLET BY MOUTH DAILY 30MIN BEFORE BREAKFAST. STOP OMEPRAZOLE Florentino Pappas atorvastati n (Lipitor) 40 MG tablet atorvastati n (Lipitor) 40 MG tablet 2023-07 0 00:00: 00 Yes 40mg QD Take 40 mg by mouth 1 time each day. Florentino omar Pappas Atorvastati n Calcium 10 MG oral Tablet [...] 09-16 00:00: 00 Yes 40mg 40 mg. Dottievioletta omar Pappas atorvastati n (Lipitor) 10 MG tablet 30 00:00: 00 Yes [facility] moxifloxaci n 0.5 % eye drops PLACE 1 DROP IN THE SURGICAL EYE 3 TIMES A DAY FOR 7 DAYS. moxifloxaci n 0.5 % eye drops PLACE 1 DROP IN THE SURGICAL EYE 3 TIMES A DAY FOR 7 DAYS. No moxifloxac in 0.5 % eye drops PLACE 1 DROP IN THE SURGICAL EYE 3 TIMES A DAY FOR 7 DAYS. [facility] sodium,pota ssium,mag sulfates 17.5 gram-3.13 gram-1.6 gram oral soln PLEASE SEE ATTACHED FOR DETAILED DIRECTIONS sodium,pota ssium,mag sulfates 17.5 gram-3.13 gram-1.6 gram oral soln PLEASE SEE ATTACHED FOR DETAILED DIRECTIONS No sodium,pot assium,mag sulfates 17.5 gram-3.13 gram-1.6 gram oral soln PLEASE SEE ATTACHED FOR DETAILED DIRECTIONS [facility] Immunizations Ordered Immunization Name Filled Immunization Name Date Status Comments Source Tdap 2021-02-22 00:00:00 Completed [facility] Tdap 2021-02-22 00:00:00 Completed PPD Test 2014-11-06 00:00:00 Completed [facility] PPD Test 2014-11-06 00:00:00 Completed Influenza, seasonal, injectable, with preservative (Afluria, Fluzone) 2014-05-04 00:00:00 Completed [facility] Influenza, seasonal, injectable, with preservative (Afluria, Fluzone) 2014-05-04 00:00:00 Completed Tdap 2006-11-26 00:00:00 Completed [facility] Tdap 2006-11-26 00:00:00 Completed Influenza, Unspecified 10-0 6 00:00:00 Completed [facility] Influenza, Unspecified 2003-04-0 6 00:00:00 Completed Influenza, Unspecified 2002-04-2 2 00:00:00 Completed [facility] Influenza, Unspecified 2002-04-2 2 00:00:00 Completed Influenza, Unspecified 2001-06-0 6 00:00:00 Completed [facility] Influenza, Unspecified 2001-06-0 6 00:00:00 Completed Pneumococcal Polysaccharide PPV23 2001-05-11 00:00:00 Completed [facility] Pneumococcal Polysaccharide PPV23 2001-05-11 00:00:00 Completed PPD Test 2000-09-14 00:00:00 Completed [facility] PPD Test 2000-09-14 00:00:00 Completed TD (adult), 2 Lf tetanus toxoid, preservative free, adsorbed 1995-03-12 00:00:00 Completed [facility] TD (adult), 2 Lf tetanus toxoid, preservative free, adsorbed 1995-03-12 00:00:00 Completed PPD Test 1995-03-04 00:00:00 Completed [facility] PPD Test 1995-03-04 00:00:00 Completed Vital Signs Vital Name Observation Time Observation Value Comments Erin beard Systolic blood pressure 2024-10-11 09:09:00 134 mm[Hg] [facility] Diastolic blood pressure 2024-10-11 09:09:00 82 mm[Hg] [facility] Heart rate 2024-10-11 09:09:00 74 /min [facility] Body temperature 2024-10-11 09:09:00 36.22 [facility] Respiratory rate 2024-10-11 09:09:00 16 /min [facility] Body height 2024-10-11 09:09:00 162.6 [facility] weight 2024-10-11 09:09:00 126.826 kg Sourav natalyl [facility] BMI 2024-10-11 09:09:00 47.99 kg/m2 Sourav rial [facility]den [facility] Oxygen saturation in Arterial blood by Pulse oximetry 2024-10-11 09:09:00 96 /min [facility] Systolic blood pressure 2024-10-11 09:09:00 134 mm[Hg] [facility] Diastolic blood pressure 2024-10-11 09:09:00 82 mm[Hg] [facility] Heart rate 2024-10-11 09:09:00 74 /min [facility] Body temperature 2024-10-11 09:09:00 36.22 [facility] Respiratory rate 2024-10-11 09:09:00 16 /min [facility] Body height 2024-10-11 09:09:00 162.6 cm Sourav nhung [facility] Body weight 2024-10-11 09:09:00 126.826 kg Sourav [facility] BMI 2024-10-11 09:09:00 47.99 kg/m2 Sourav rial Ayden [facility] Oxygen saturation in Arterial blood by Pulse oximetry 2024-10-11 09:09:00 96 /min [facility] Body height 2024-08-26 16:15:00 [facility].8 [facility] Body weight 2024-08-26 16:15:00 [facility].75 [facility] BMI 2024-08-26 16:15:00 44.62 [facility] Systolic blood pressure 2024-07-15 15:56:00 131 mm[Hg] [facility] Diastolic blood pressure 2024-07-15 15:56:00 95 mm[Hg] [facility] Heart rate 2024-07-15 15:56:00 80 /min [facility] Body temperature 2024-07-15 15:56:00 36.33 [facility] Respiratory rate 2024-07-15 15:56:00 16 /min [facility] Body height 2024-07-15 15:56:00 163.8 cm Sourav nhung [facility] Body weight 2024-07-15 15:56:00 123.832 kg Sourav rial [facility] BMI 2024-07-15 15:56:00 46.14 kg/m2 Sourav rial [facility]den [facility] Oxygen saturation in Arterial blood by Pulse oximetry 2024-07-15 15:56:00 99 /min [facility] Systolic blood pressure 2024-07-15 15:56:00 131 mm[Hg] [facility] Diastolic blood pressure 2024-07-15 15:56:00 95 mm[Hg] [facility] Heart rate 2024-07-15 15:56:00 80 /min [facility] Body temperature 2024-07-15 15:56:00 36.33 [facility] Respiratory rate 2024-07-15 15:56:00 16 /min [facility] Body height 2024-07-15 15:56:00 163.8 cm Sourav rial [facility] Body weight 2024-07-15 15:56:00 123.832 kg Sourav rial [facility] BMI 2024-07-15 15:56:00 46.14 kg/m2 Sourav rial [facility] Oxygen saturation in Arterial blood by Pulse oximetry 2024-07-15 15:56:00 99 /min [facility] Systolic blood pressure 2024-05-31 15:46:00 131 mm[Hg] [facility] Diastolic blood pressure 2024-05-31 15:46:00 82 mm[Hg] [facility] Heart rate 2024-05-31 15:46:00 81 /min [facility] Body temperature 2024-05-31 15:46:00 36.5 Cara [facility] Respiratory rate 2024-05-31 15:46:00 16 /min [facility] Body height 2024-05-31 15:46:00 163.8 cm Sourav rial [facility] Body weight 2024-05-31 15:46:00 120.203 kg Sourav rial [facility] BMI 2024-05-31 15:46:00 44.78 kg/m2 Souravcherelle hooker [facility] Oxygen saturation in Arterial blood by Pulse oximetry 2024-05-31 15:46:00 97 /min [facility] Systolic blood pressure 2024-05-31 15:46:00 131 mm[Hg] [facility] Diastolic blood pressure 2024-05-31 15:46:00 82 mm[Hg] [facility] Heart rate 2024-05-31 15:46:00 81 /min [facility] Body temperature 2024-05-31 15:46:00 36.5 Cara [facility] Respiratory rate 2024-05-31 15:46:00 16 /min [facility] Body height 2024-05-31 15:46:00 163.8 cm [facility] Body weight 2024-05-31 15:46:00 120.203 kg [facility] BMI 2024-05-31 15:46:00 44.78 kg/m2 [facility] Oxygen saturation in Arterial blood by Pulse oximetry 2024-05-31 15:46:00 97 /min [facility] BP Diastolic 2024-05-23 00:00:00 90 mm[Hg] [facility] BP Systolic 2024-05-23 00:00:00 144 mm[Hg] [facility] BMI (Body Mass Index) 2024-05-23 00:00:00 46.1 kg/m2 [facility] Body Weight 2024-05-23 00:00:00 268.3 [lb_av] [facility] Height 2024-05-23 00:00:00 64 [in_i] [facility] Systolic blood pressure 2023-11-18 13:44:00 141 mm[Hg] Sari Seybo ld - External Diastolic blood pressure 2023-11-18 13:44:00 87 mm[Hg] Sari Seybo ld - External Heart rate 2023-11-18 13:44:00 81 /min Kelse mitchell Boland - External Body temperature 2023-11-18 13:44:00 36.33 Cara Sari Seybold - External Respiratory rate 2023-11-18 13:44:00 16 /min Sari Boland - External Body height 2023-11-18 13:44:00 162.6 cm Orly Boland - External Body weight 2023-11-18 13:44:00 119.477 kg Orly fernandes Seybold - External BMI 2023-11-18 13:44:00 45.21 kg/m2 Orly Boland - External Oxygen saturation in Arterial blood by Pulse oximetry 2023-11-18 13:44:00 97 /min Sari Freemano ld - External Systolic blood pressure 2023-03-24 16:12:00 130 mm[Hg] [facility] Diastolic blood pressure 2023-03-24 16:12:00 83 mm[Hg] [facility] Heart rate 2023-03-24 16:12:00 74 /min [facility]th Body temperature 2023-03-24 16:12:00 36.5 Cara [facility] Body height 2023-03-24 16:12:00 162.6 [facility] Body weight 2023-03-24 16:12:00 [facility]75 [facility] BMI 2023-03-24 16:12:00 45.32 kg/m2 [facility] Procedure Date / Time Performed Performing Clinician Source CT angiogram brain 2024-08-26 00:00:00 [facility] CT angiogram brain 2024-05-31 00:00:00 [facility] Creatinine, Serum 2024-05-31 00:00:00 [facility] CT brain wo IV contrast 2024-05-31 00:00:00 [facility] US, transvaginal 2024-05-23 00:00:00 [facility] Cataract Surgery 2024-03-21 00:00:00 [facility] Procedure on [facility] Encounters Start Date/Time End Date/Time Encounter Type Admission Type Attending Clinicians Care Facility Care Department Encounter ID Source 2023-02-10 12:55:12 Outpatient [facility] [id number] [facility] 2023-02-09 10:30:45 Outpatient [facility] [id number] [facility] 2023-01-20 09:51:31 Outpatient [facility] [id number] [facility] 2023-01-06 14:06:59 Outpatient [facility] [id number] [facility] 2025-08-22 11:00:00 2025-08-22 11:00:00 Outpatient JESSE REECE [facility] [id number] [facility] 2024-11-16 10:30:00 2024-11-16 10:30:00 Outpatient ARMIN NORWOOD [id number] Sari Boland 2024-10-11 09:00:00 2024-10-11 09:25:21 Office Visit Dima Davis [id number] [facility] 2024-10-11 08:42:06 2024-10-11 09:25:21 Outpatient DIMA DAVIS [facility] [id number] [facility] 2024-08-26 00:00:00 2024-08-26 12:49:40 Orders Only Jesse Reece [facility] [id number] Florentino l [facility] 2024-08-26 10:30:00 2024-08-26 12:34:04 Telemedici ne Jesse Reece UTP [id number] IRMA [id number] [facility] 2024-07-21 00:00:00 2024-08-21 23:52:47 Telephone Elaine Tijerina [facility] [place] [id number] [facility] 2024-07-15 16:00:00 2024-07-15 16:39:04 Office Visit Dima Davis [id number] Florentino Hensely [facility] 2024-07-15 15:19:44 2024-07-15 16:39:04 Outpatient Elective DIMA DAVIS MHEOUT MHEOUT [id number] [facility] 2024-06-20 09:25:51 2024-06-20 14:23:32 Outpatient Elective [facility] M[facility]OUT [id number] [facility] 2024-06-20 09:26:08 2024-06-20 14:23:21 Outpatient Elective MHEOUT M[facility]OUT [id number] [facility] 2024-05-31 15:45:00 2024-05-31 16:25:17 Consult Dima Davis [id number] Florentino Hensley [facility] 2024-05-31 15:28:38 2024-05-31 16:25:17 Outpatient DIMA DAVIS MHEOUT MHEOUT [id number] [facility] 2024-05-23 00:00:00 2024-05-23 00:00:00 Anitha Sequeira MD: [address], [address], [place] [address] , Ph. [phone] [facility] [place] [id number] [facility] 2023-11-18 08:30:00 2023-11-18 08:30:00 Outpatient ARMIN NORWOOD [id number] Sari Boland 2023 16:20:00 2023 16:20:00 Outpatient SARI EDUARDO [id number] Sari Boland 2023 00:00:00 2023 00:00:00 Outpatient ARMIN NORWOOD [id number] Sari Boland 2023-09-15 13:30:00 2023-09-15 13:30:00 Outpatient SURINDER REYNOSO [id number] Sari Boland 2023-03-24 11:30:00 2023-03-24 11:50:00 Office Visit Jesse Reece Rodo UTP [id number] [facility]MA [id number] [facility] 2023-02-17 10:00:00 2023-02-17 10:00:00 Outpatient JESSE REECE [facility] [id number] [facility] Notes Date/Time Note Provider Source 2024-10-11 09:50:01 [facility]2025-04-01 09:50:01* Dima Davis MD - 10/11/2024 9:00 AM CDT History of Present Illness HPI Stable, occasional headaches. Made it to [facility], NSGY recommended monitoring on a yearly basis. Again reviewed indications for seeking emergency care. Allergies as of 10/11/2024 - Reviewed 10/11/2024 Allergen Reaction Noted Verapamil Hives, Other, Unknown, and Anaphylaxis 01/28/2012 Atenolol Hives 12/29/2005 Acetaminophen-codeine Dizziness and Unknown 11/26/2010 Aspirin Hives 04/06/2005 Bismuth Hives 07/15/2014 Bismuth subsalicylate Hives 03/11/2005 Hydrocodone Hives 12/28/2023 Hydrocodone-acetaminophen Hives 10/03/2011 Isradipine Hives 04/06/2005 Metoclopramide Hives, Other, and Unknown 07/15/2014 Sszwytjt-uaowknba-gzn subsal Hives 08/28/2017 Metronidazole Hives 07/15/2014 Penicillins [...] pantoprazole, potassium chloride cr, and prednisolone acetate. Vitals:10/11/24 0909 BP: 134/82 Pulse: 74 Resp: 16 Temp: 36.2 ?C (97.2 ?F) SpO2: 96% Neurological Exam Mental Status Awake and alert. [...] by: Clem Beard MD 06/20/2024 04:09 PM HOSPICE SPIRITUAL CARE COORDINATOR RPWorkstation: [id number] Assessment & PlanDiagnoses and all orders for this visit: Cerebral aneurysm without rupture Yearly imaging and exam [facility]2025-04-01 09:50:01Upcoming Encounters Health Maintenance Due Date Last Done Comments Bone Density Scan 1955 CT Colonography 1955 FIT-DNA 1955 FIT 1955 FOBT 1955 Medicare Annual Wellness (AWV) 1955 Sigmoidoscopy 1955 Diabetes: Foot Exam 11/05/1963 Diabetes: Retinopathy Screening 11/05/1963 Diabetes: Urine Protein Screening 1972 Hepatitis A Vaccines (1 of 2 - Risk 2-dose series) 1972 Pneumococcal Vaccine: 50+ Years (2 of 2 - PCV) 05/11/2002 05/11/2001 Zoster Vaccines (1 of 2) 11/05/2003 Hepatitis B Vaccines (1 of 3 - Risk 3-dose series) 2013 Respiratory Syncytial Virus (RSV) or >=60 (1 - Risk 60-74 years 1-dose series) 2013 Lipid Panel 12/19/2021 12/19/2020 Diabetes: Hemoglobin A1C 08/29/2022 02/26/2022, 08/13 Mammogram 03/14/2024 03/14/2022 Influenza Vaccine (Season Ended) 2025 05/04/2014, 04/17/2003, 05/03/2002, Additional history exists DTaP/Tdap/Td Vaccines (3 - Td or Tdap) [...] on patient's age to complete this topic [facility]Ivqyyxg3931-94-00 09:50:01 Diagnosis Cerebral aneurysm without ru pture - Primary [facility] CenterYqotwvx4930-82-84 09:50:01 [facility] CenterYkutrrk2136-61-24 09:50:01* [facility] CenterNpiziuy7796-05-37 09:50:01 [facility] CenterDebuptt2548-83-39 09:50:01* Dima Davis MD - 10/11/2024 9:00 AM CDT History of Present Illness HPI Stable, occasional headaches. Made it to [facility], NSGY recommended monitoring on a yearly basis. Again reviewed indications for seeking emergency care. Allergies as of 10/11/2024 - Reviewed 10/11/2024 Allergen Reaction Noted Verapamil Hives, Other, Unknown, and Anaphylaxis 01/28/2012 Atenolol Hives 12/29/2005 Acetaminophen-codeine Dizziness and Unknown 11/26/2010 Aspirin Hives 04/06/2005 Bismuth Hives 07/15/2014 Bismuth subsalicylate Hives 03/11/2005 Hydrocodone Hives 12/28/2023 Hydrocodone-acetaminophen Hives 10/03/2011 Isradipine Hives 04/06/2005 Metoclopramide Hives, Other, and Unknown 07/15/2014 Wkfhfjhx-bzxvxrdj-ddg subsal Hives 08/28/2017 Metronidazole Hives 07/15/2014 Penicillins [...] pantoprazole, potassium chloride cr, and prednisolone acetate. Vitals:10/11/24 0909 BP: 134/82 Pulse: 74 Resp: 16 Temp: 36.2 ?C (97.2 ?F) SpO2: 96% Neurological Exam Mental Status Awake and alert. [...] by: Clem Beard MD 06/20/2024 04:09 PM HOSPICE SPIRITUAL CARE COORDINATOR RPWorkstation: [id number] Assessment & PlanDiagnoses and all orders for this visit: Cerebral aneurysm without rupture Yearly imaging and exam [facility] CenterKtldnpu5110-86-30 09:50:01Upcoming Encounters Health Maintenance Due Date Last Done Comments Bone Density Scan 1955 CT Colonography 1955 FIT-DNA 1955 FIT 1955 FOBT 1955 Medicare Annual Wellness (AWV) 1955 Sigmoidoscopy 1955 Diabetes: Foot Exam 11/05/1963 Diabetes: Retinopathy Screening 11/05/1963 Diabetes: Urine Protein Screening 1972 Hepatitis A Vaccines (1 of 2 - Risk 2-dose series) 1972 Pneumococcal Vaccine: 50+ Years (2 of 2 - PCV) 05/11/2002 05/11/2001 Zoster Vaccines (1 of 2) 11/05/2003 Hepatitis B Vaccines (1 of 3 - Risk 3-dose series) 2013 Respiratory Syncytial Virus (RSV) or >=60 (1 - Risk 60-74 years 1-dose series) 2013 Lipid Panel 12/19/2021 12/19/2020 Diabetes: Hemoglobin A1C 08/29/2022 02/26/2022, 08/13 Mammogram 03/14/2024 03/14/2022 Influenza Vaccine (Season Ended) 2025 05/04/2014, 04/17/2003, 05/03/2002, Additional history exists DTaP/Tdap/Td Vaccines (3 - Td or Tdap) [...] on patient's age to complete this topic [facility] CenterCvleycv8537-33-65 09:50:01 Diagnosis Cerebral aneurysm without ru pture - Primary [facility] CenterOwvceja1717-33-36 09:50:01 [facility] CenterUjbtcts0538-73-78 12:49:45* Imaging (Routine) - Authorized Specialty Diagnoses / Procedures Referred By Jonn jenkins Referred To Contact Radiology Diagnoses Cerebral aneurysm, nonruptured Procedures CT angiogram brain Jesse Reece MD [address] [address] Phone: tel: fax: Referral ID Status Reason Start Date Expiration Date V isits Requested Visits Authorized [id number] Authorized 08/26/2024 02/22/2025 1 1 [facility]2025-02-14 12:49:45 [facility] CenterSpnwwdt0626-13-64 12:49:45Upcoming Encounters Scheduled Orders Name Type Priority [...] 1-dose series) 2013 Annual Physical 09/04/2021 09/04/2020, 08/0 01/2019, 11/08/2014, Additional history exists Lipid Panel [...] on patient's age to complete this topic [facility] Ptwmndd1603-51-73 12:49:45 Diagnosis Cerebral aneurysm, nonruptur ed [facility] CenterWifuiie5028-67-06 12:49:45 [facility] CenterPdxtdyk8196-77-27 10:30:00 Addended by: YE BETANCUR on: 08/26/2024 12:50 PM Modules accepted: Orders ICE SPIRITUAL CARE COORDINATOR [facility]Ochjtia5471-91-76 23:56:49 [facility] CenterVdggxuw4090-32-31 23:56:49Upcoming Encounters Health Maintenance Due Date Last [...] 1-dose series) 2013 Annual Physical 09/04/2021 09/04/2020, 08/0 01/2019, 11/08/2014, Additional history exists Lipid Panel [...] on patient's age to complete this topic [facility] CenterXmstpng5212-08-51 23:56:49 [facility] CenterXnjsonz4879-03-73 16:34:[address] Reece's office noted the patient is already established with Dr. Rodo Reece. She is asking if the referral to Dr. Mark Anthony Reece is for a second opinion or if the patient should continue with Dr. Rodo Reece, as both doctors work in the same field and location. ICE SPIRITUAL CARE COORDINATOR [facility] Mupagoz2673-00-69 17:32:09 [facility]zxrqy7163-20-37 17:32:09* Consultation (Routine) - Authorized Specialty Diagnoses / Procedures Referred By Contac t Referred To Contact Neurosurgery Diagnoses Cerebral aneurysm without rupture Dima Davis MD [address] [place] [address] Phone: tel: fax: [place] [address] [place] [address] Phone: tel: fax: Referral ID Status Reason Start Date Expiration Date Visits Requested Visits Authorized [id number] Authorized Specialty Services Required 07/15/2024 01/11/2025 99 99 ICE SPIRITUAL CARE COORDINATOR [facility] Cdfsqgp4472-26-83 17:32:09* [facility]burgIytuhgw8826-09-36 17:32:09 [facility]burgVbgidaf6169-33-39 17:32:09* Dima Davis MD - 07/15/2024 4:00 PM HOSPICE SPIRITUAL CARE COORDINATOR History of Present Illness HPI Patient returns [...] 04/06/2005 Metoclopramide Hives, Other, and Unknown 07/15/2014 Rreudejv-wgmsksln-svz subsal Hives 08/28/2017 Metronidazole Hives 07/15/2014 Penicillins [...] by: Clem Beard MD 06/20/2024 04:09 PM HOSPICE SPIRITUAL CARE COORDINATOR RPWorkstation: [id number] Assessment & PlanDiagnoses and all orders for this visit: Cerebral aneurysm without rupture Neurosurgery opinion/consult [facility]2025-01-03 17:32:09Upcoming Encounters Scheduled Referrals Name Type Priority [...] 1-dose series) 2013 Annual Physical 09/04/2021 09/04/2020, 08/0 01/2019, 11/08/2014, Additional history exists Lipid Panel [...] on patient's age to complete this topic [facility] CenterFfseths9774-00-81 17:32:09 Diagnosis Cerebral aneurysm without ru pture - Primary [facility] CenterUtwmmlu3046-53-64 17:32:09 [place] 565175-01-03 17:32:09* Consultation (Routine) - Authorized Specialty Diagnoses / Procedures Referred By Contkunal t Referred To Contact Neurosurgery Diagnoses Cerebral aneurysm without rupture Dima Davis MD [address] [place] [address] Phone: tel: [place] [address] [place] [address] [place] [address] Phone: tel: fax: Referral ID Status Reason Start Date Expiration Date Visits Requested Visits Authorized [id number] Authorized Specialty Services Required 07/15/2024 01/11/2025 99 99 ICE SPIRITUAL CARE COORDINATOR [facility]burgPiqwlsp3860-58-54 17:32:09* [facility]burgSlwjuqc2378-81-00 17:32:09 [facility] EdinburgOhkrtgp5716-29-78 17:32:09* Dima Davis MD - 07/15/2024 4:00 PM HOSPICE SPIRITUAL CARE COORDINATOR History of Present Illness HPI Patient returns [...] 04/06/2005 Metoclopramide Hives, Other, and Unknown 07/15/2014 Zlbsnxot-lwjmucxx-yty subsal Hives 08/28/2017 Metronidazole Hives 07/15/2014 Penicillins [...] by: Clem Beard MD 06/20/2024 04:09 PM [facility] RPWorkstation: [id number] Assessment & PlanDiagnoses and all orders for this visit: Cerebral aneurysm without rupture Neurosurgery opinion/consult [facility]2025-01-03 17:32:09Upcoming Encounters Scheduled Referrals Name Type Priority [...] on patient's age to complete this topic [facility] CenterRkrwpqj2659-61-92 17:32:09 Diagnosis Cerebral aneurysm without ru pture - Primary [facility] CenterMvhobhl9375-54-48 16:25:51* Imaging (Routine) - Authorized Specialty Diagnoses / Procedures Referred By Contac t Referred To Contact Radiology Diagnoses Cerebral aneurysm without rupture Procedures CT brain wo IV contrast Dima Davis MD [address] [place] [address] Phone: tel: fax: Referral ID Status Reason Start Date Expiration Date V isits Requested Visits Authorized [id number] Authorized 05/31/2024 11/27/2024 1 1 ICE SPIRITUAL CARE COORDINATOR* Imaging (Routine) - Authorized Specialty Diagnoses / Procedures Referred By Jonn jenkins Referred To Contact Radiology Diagnoses Cerebral aneurysm without rupture Procedures CT angiogram brain Dima Davis MD [address] [place] [address] Phone: tel: fax: Referral ID Status Reason Start Date Expiration Date V isits Requested Visits Authorized [id number] Authorized 05/31/2024 11/27/2024 1 1 ICE SPIRITUAL CARE COORDINATOR [facility] CenterJlzfssy6297-42-23 16:25:51* [facility] CenterNeiiugt6141-17-85 16:25:51 [facility] CenterLeayphd4246-47-73 16:25:51* Dima Davis MD - 05/31/2024 3:45 PM HOSPICE SPIRITUAL CARE COORDINATOR Subjective Raina López is a 68 y.o. female presenting with cerebral aneurysm. History of Present Illness HPI Oldest daughter had a SAH and was recommended to family to be screened for aneurysm. Beginning around 2020 patient had MRI/MRA 2 aneurysms. L ICA 3.5mmx2.5mm, L A1/A2 2mmx 2.5 mm. Has HTN, well controlled and the family history of SAH. Had labs with PCP, normal. Moved to [place] a few years ago, last imaging about [...] Bismuth subsalicylate, Hydrocodone, Hydrocodone-acetaminophen, Ibuprofen, Isradipine, Metoclopramide, Vqtqougx-mgkkzyjd-lhx subsal, Metronidazole, Penicillins, Sulfa antibiotics, Sulfamethoxazole-trimethoprim, Tetracycline, [...] and symmetric in all four extremities. Coordination Labvwu-xj-gnfe, rapid alternating movements and vzvm-sc-fpxj normal bilaterally without dysmetria. GaitNormal casual, toe, [...] neurosurgery even if the aneurysms are unchanged [facility] 16:25:51Scheduled Orders Health Maintenance Due Date Last [...] on patient's age to complete this topic [facility] CenterSpomvch5163-27-76 16:25:51 Diagnosis Cerebral aneurysm without ru pture - Primary [facility] CenterFimvgyx7680-08-61 16:25:51 [facility] CenterKaatnxv2757-70-64 08:50:55 Chief Complaint Patient presents with Consultation Pt has 2 aneurysms Height 5'4 per pt [address]UR Singh [facility]
[2024-11-11 07:10] LABS: Absolute Eosinophils 0.2 K/uL (0-0.5); Absolute Lymphocytes (CBC) 1.6 K/uL (0.7-4.9); Absolute Monocytes 0.3 K/uL (0.1-1.3); Absolute Neutrophil 3.2 K/uL (1.8-8.0); Basophils % 0.5 % (0-1.3); Hematocrit 38.4 % (36.0-45.0); Lymphocytes % 30.4 % (15.3-44.8); MCHC 33.8 g/dL (32.0-36.0); MCV 94.5 fL (80-100); MPV 8.6 fL (7.6-11.3); Neutrophils % 61.1 % (41.7-73.7); Nucleated Red Blood Cells % 0.1 % (0-0); Platelets 238 thou/uL (152-406); RBC Red Blood Cell Count 4.07 M/uL (3.86-4.86); Red Cell Distribution Width 15.3 % (12.1-15.2)
--- NOTE | 2024-11-11 07:33 | RAD REPORT ---
EXAM: Chest Single View HISTORY: 69 years Female DYSPNEA COMPARISON: 09/11/2024 FINDINGS: LUNGS/PLEURA: The lungs are clear. No pleural effusions or pneumothorax. No pulmonary edema. CARDIAC/MEDIASTINUM: The cardiac silhouette is within normal limits. UPPER ABDOMEN: No significant abnormality. BONES: No acute abnormality. LINES/TUBES/OTHER: N/A IMPRESSION: No evidence of acute cardiopulmonary disease.
[2024-11-11 07:39] LABS: ALT/SGPT 16 U/L (13-56); Albumin/Globulin Ratio 0.7 (1.1-1.8); Alkaline Phosphatase 88 U/L (45-117); Anion Gap 10.8 mEq/L (5.0-15.0); BUN Blood Urea Nitrogen 18 mg/dL (7-18); Bicarbonate 25 mEq/L (21-32); Bilirubin Total 0.4 mg/dL (0.2-1.0); Globulin 4.6 g/dL (2.3-3.5); Glomerular Filtration Rate 53 ml/min (=/>90); Glucose Level 120 mg/dL (74-106); Magnesium 1.9 mg/dL (1.6-2.4); NT PRO-BNP 49 pg/mL (<125); PT Prothrombin Time 11.5 SECONDS (10-13.0); Potassium 3.8 mEq/L (3.5-5.1); Protein, Total 7.6 g/dL (6.4-8.2); Protime INR 1.01; Sodium Level 140 mEq/L (136-145)
[2024-11-11 07:41] LABS: AST/SGOT < 10 U/L (15-37); Bilirubin Direct < 0.2 mg/dL (0-0.2); Bilirubin Indirect, Calculated 0.2 mg/dL (0.2-0.8)
--- NOTE | 2024-11-11 09:50 | ER ---
Nurse's Notes [facility] Name: Marlyn Christy Age: 69 yrs Sex: Female : 1955 Arrival Date: 11/11/2024 Time: 05:42 Bed 5 Private MD: Diagnosis: Essential (primary) hypertension;Chest pain, unspecified Presentation: 11/11 06:10 Chief complaint: Patient states: My blood pressure was really high yesterday and I was bm8 told to take my old and newly prescribed BP medications. This morning I feel somewhat nauseated and really run down tired and a little short of breath. Coronavirus screen: At this time, the client does not indicate any symptoms associated with coronavirus-19. Ebola Screen: Patient negative for fever greater than or equal to 101.5 degrees Fahrenheit, and additional compatible Ebola Virus Disease symptoms Patient denies exposure to infectious person. Patient denies travel to an Ebola-affected area in the 21 days before illness onset. No symptoms or risks identified at this time. Initial Sepsis Screen: Does the patient meet any 2 criteria? No. Patient's initial sepsis screen is negative. Does the patient have a suspected source of infection? No. Patient's initial sepsis screen is negative. Risk Assessment: Do you want to hurt yourself or someone else? Patient reports no desire to harm self or others. Onset of symptoms is unknown. 06:10 Method Of Arrival: Ambulatory bm8 07:00 Acuity: BRITANY 3 jl7 Triage Assessment: 06:14 General: Appears in no apparent distress. comfortable, Behavior is calm, cooperative, bm8 appropriate for age. Pain: Denies pain. EENT: No deficits noted. No signs and/or symptoms were reported regarding the EENT system. Neuro: No deficits noted. Level of Consciousness is awake, alert, obeys commands, Oriented to person, place, time, situation, Appropriate for age. Cardiovascular: Reports shortness of breath, Capillary refill < 3 seconds in bilateral fingers Thorax Patient's skin is warm and dry. Respiratory: Reports shortness of breath Airway is patent Respiratory effort is even, unlabored, Respiratory pattern is regular, symmetrical, Breath sounds are clear bilaterally. GI: No signs and/or symptoms were reported involving the gastrointestinal system. : No signs and/or symptoms were reported regarding the genitourinary system. : No signs and/or symptoms were reported regarding the genitourinary system. Derm: No signs and/or symptoms reported regarding the dermatologic system. Musculoskeletal: No signs and/or symptoms reported regarding the musculoskeletal system. Historical: - Allergies: 06:13 Niacin; bm8 06:13 PENICILLINS; bm8 06:13 Sulfa (Sulfonamide Antibiotics); bm8 - Home Meds: 06:14 Vitamin D3 50 mcg (2,000 unit) oral tablet 1 tab daily [Active]; isosorbide mononitrate bm8 30 mg Oral Tablet, Extended Release 24 hr 1 tab daily [Active]; atorvastatin 40 mg oral tablet 1 tab daily [Active]; pantoprazole 40 mg oral tablet, delayed release (enteric coated) 1 tab daily [Active]; furosemide 40 mg Oral tablet 1 tab daily [Active]; amlodipine 10 mg tablet [Active]; allopurinol 100 mg oral tablet 2 tabs daily [Active]; spironolactone 25 mg Oral tablet 1 tab daily [Active]; losartan 100 mg oral tablet 1 tab daily [Active]; - PMHx: 06:13 Hypercholesterolemia; Hypertensive disorder; bm8 06:14 GERD; Gout; bm8 - Immunization history:: Adult Immunizations up to date. - Infectious Disease History:: Denies. - Social history:: Smoking status: Patient denies any tobacco usage or history of. Screenin:42 [facility] ED Fall Risk Assessment (Adult) History of falling in the last 3 months, bm8 including since admission No falls in past 3 months (0 pts) Confusion or Disorientation No (0 pts) Intoxicated or Sedated No (0 pts) Impaired Gait No (0 pts) Mobility Assist Device Used No (0 pt) Altered Elimination No (0 pt) Score/Fall Risk Level 0 - 2 = Low Risk Oriented to surroundings, Maintained a safe environment, Educated pt \T\ family on fall prevention, incl call for assistance when getting out of bed, Assessed \T\ reinforced patient's understanding of fall precautions, Hourly rounding (assess needs \T\ fall precautionary measures) done, Used ambulatory aids as needed (educated on \T\ assisted with), Used gait belt as appropriate. Abuse screen: Denies threats or abuse. Nutritional screening: No deficits noted. Tuberculosis screening: No symptoms or risk factors identified. Assessment: 07:04 Reassessment: Patient appears in no apparent distress at this time. No changes from bm8 previously documented assessment. Patient and/or family updated on plan of care and expected duration. Pain level reassessed. Patient is alert, oriented x 3, equal unlabored respirations, skin warm/dry/pink. 09:28 Reassessment: Patient appears in no apparent distress at this time. Patient is alert, bp oriented x 3, equal unlabored respirations, skin warm/dry/pink. 10:02 Reassessment: Patient appears in no apparent distress at this time. Patient is alert, bp oriented x 3, equal unlabored respirations, skin warm/dry/pink. Vital Signs: 06:10 BP 175 / 94; Pulse 85; Resp 18; Temp 98.4; Pulse Ox 98% ; Weight 123.83 kg; Height 5 bm8 ft. 4 in. ; Pain 0/10; 06:42 BP 137 / 77; Pulse 76; Resp 18; Temp 98.4; Pulse Ox 98% ; Pain 0/10; bm8 09:28 BP 163 / 94; Pulse 71; Resp 15; Pulse Ox 97% ; bp 09:57 BP 156 / 93; Pulse 72; Resp 16; Pulse Ox 100% ; bp 06:10 Body Mass Index 46.86 (123.83 kg, 162.56 cm) bm8 06:10 Pain Scale: Adult bm8 06:42 Pain Scale: Adult bm8 Giovanni Coma Score: 06:42 Eye Response: spontaneous(4). Motor Response: obeys commands(6). Verbal Response: bm8 oriented(5). Total: 15. ED Course: 05:48 Patient arrived in ED. gm2 05:54 Joon Robertson MD is Attending Physician. sp3 06:10 Kris Tellez, RN is Primary Nurse. bm8 06:14 Arm band placed on right wrist. bm8 06:42 Patient has correct armband on for positive identification. Placed in gown. Bed in low bm8 position. Call light in reach. Side rails up X 1. Adult w/ patient. Client placed on continuous cardiac and pulse oximetry monitoring. NIBP monitoring applied. Pulse ox on. NIBP on. Door closed. Noise minimized. Warm blanket given. Pillow given. Verbal reassurance given. Head of bed elevated. 06:42 No provider procedures requiring assistance completed. bm8 06:46 XRAY Chest (1 view) In Process Unspecified. EDMS 07:04 Inserted saline lock: 22 gauge in right antecubital area, using aseptic technique. bm8 Blood collected. Flushed with 10 mL NS. Patient maintains SpO2 saturation greater than 95% on room air. 07:05 Initial lab(s) drawn, by me, sent to lab. EKG done, by ED staff, reviewed by Joon Robertson MD. 07:18 Attending Physician role handed off by Joon Robertson MD ms3 07:18 Paco Merrill DO is Attending Physician. ms3 07:53 Triage completed. jl7 09:49 Rex Love MD is Referral Physician. ms3 10:02 Provided Education on: na. bp 10:02 IV discontinued, intact, bleeding controlled, No redness/swelling at site. Pressure bp dressing applied. Administered Medications: No medications were administered Medication: 06:42 VIS not applicable for this client. bm8 Outcome: 09:50 Discharge ordered by MD. ms3 10:02 Discharged to home ambulatory, with family, bp 10:02 Condition: stable 10:02 Discharge instructions given to patient, family, Instructed on discharge instructions, follow up and referral plans. Demonstrated understanding of instructions, follow-up care, 10:03 Patient left the ED. bp Signatures: Dispatcher [employer] EDMI Efren Biggs RN RN jl7 Chet Edgar, RN RN bp Paco Merrill DO DO ms3 Joon Robertson MD MD sp3 Iris Bragg gm2 Kris Tellez, RN RN bm8 Corrections: (The following items were deleted from the chart) 07:04 07:04 Reassessment: Patient appears in no apparent distress at this time. No changes bm8 from previously documented assessment. Patient and/or family updated on plan of care and expected duration. Pain level reassessed. Patient is alert, oriented x 3, equal unlabored respirations, skin warm/dry/pink. Patient states symptoms have improved. bm8
--- NOTE | 2024-11-11 09:50 | EDPHYS ---
Physician Documentation [facility] Name: Marlyn Christy Age: 69 yrs Sex: Female : 1955 Arrival Date: 11/11/2024 Time: 05:42 Bed 5 Private MD: ED Physician Paco Merrill HPI: 11/11 06:44 This 69 yrs old Black Female presents to ER via Ambulatory with complaints of High sp3 Blood Pressure and SOB. 06:44 69-year-old female with history of hyperlipidemia, hypertension, gout, who sees Dr. indira Singh and Dr. Love presents to the ED with chief complaint shortness of breath and elevated blood pressure in the 180s. Patient was seen at the GI center for preprocedure workup and was also noted to have high blood pressure. She is due for a routine endoscopy. She denies any chest pain, back pain, abdominal pain, vomiting, diarrhea, headache, fever, known sick contacts, travel history, prolonged immobilization, prior DVT or PE, or any other signs or symptoms on ROS at this time.. Historical: - Allergies: 06:13 Niacin; bm8 06:13 PENICILLINS; bm8 06:13 Sulfa (Sulfonamide Antibiotics); bm8 - Home Meds: 06:14 Vitamin D3 50 mcg (2,000 unit) oral tablet 1 tab daily [Active]; isosorbide mononitrate bm8 30 mg Oral Tablet, Extended Release 24 hr 1 tab daily [Active]; atorvastatin 40 mg oral tablet 1 tab daily [Active]; pantoprazole 40 mg oral tablet, delayed release (enteric coated) 1 tab daily [Active]; furosemide 40 mg Oral tablet 1 tab daily [Active]; amlodipine 10 mg tablet [Active]; allopurinol 100 mg oral tablet 2 tabs daily [Active]; spironolactone 25 mg Oral tablet 1 tab daily [Active]; losartan 100 mg oral tablet 1 tab daily [Active]; - PMHx: 06:13 Hypercholesterolemia; Hypertensive disorder; bm8 06:14 GERD; Gout; bm8 - Immunization history:: Adult Immunizations up to date. - Infectious Disease History:: Denies. - Social history:: Smoking status: Patient denies any tobacco usage or history of. ROS: 06:45 Constitutional: Negative for fever, chills, and weight loss, Eyes: Negative for injury, sp3 pain, redness, and discharge, ENT: Negative for injury, pain, and discharge, Neck: Negative for injury, pain, and swelling, Cardiovascular: Negative for chest pain, palpitations, and edema, Abdomen/GI: Negative for abdominal pain, nausea, vomiting, diarrhea, and constipation, Back: Negative for injury and pain, MS/Extremity: Negative for injury and deformity, Skin: Negative for injury, rash, and discoloration, Neuro: Negative for headache, weakness, numbness, tingling, and seizure, Psych: Negative for depression, anxiety, suicide ideation, homicidal ideation, and hallucinations, Allergy/Immunology: Negative for hives, rash, and allergies, Endocrine: Negative for neck swelling, polydipsia, polyuria, polyphagia, and marked weight changes, Hematologic/Lymphatic: Negative for swollen nodes, abnormal bleeding, and unusual bruising, 06:45 All other systems are negative, Exam: 06:46 Constitutional: This is a well developed, well nourished patient who is awake, alert, sp3 and in no acute distress. Head/Face: Normocephalic, atraumatic. Eyes: Pupils equal round and reactive to light, extra-ocular motions intact. Lids and lashes normal. Conjunctiva and sclera are non-icteric and not injected. Cornea within normal limits. Periorbital areas with no swelling, redness, or edema. ENT: Nares patent. No nasal discharge, no septal abnormalities noted. External auditory canals are clear. Oropharynx with no redness, swelling, or masses, exudates, or evidence of obstruction, uvula midline. Mucous membranes moist. Neck: Trachea midline, no thyromegaly or masses palpated, and no cervical lymphadenopathy. Supple, full range of motion without nuchal rigidity, or vertebral point tenderness. No Meningismus. Chest/axilla: Normal chest wall appearance and motion. Nontender with no deformity. No lesions are appreciated. Cardiovascular: Regular rate and rhythm with a normal S1 and S2. No gallops, murmurs, or rubs. Normal PMI, no JVD. No pulse deficits. Respiratory: Lungs have equal breath sounds bilaterally, clear to auscultation and percussion. No rales, rhonchi or wheezes noted. No increased work of breathing, no retractions or nasal flaring. Abdomen/GI: Soft, non-tender, with normal bowel sounds. No distension or tympany. No guarding or rebound. No evidence of tenderness throughout. Back: No spinal tenderness. No costovertebral tenderness. Full range of motion. Skin: Warm, dry with normal turgor. Normal color with no rashes, no lesions, and no evidence of cellulitis. MS/ Extremity: Pulses equal, no cyanosis. Neurovascular intact. Full, normal range of motion. Neuro: Awake and alert, GCS 15, oriented to person, place, time, and situation. Cranial nerves II-XII grossly intact. Motor strength 5/5 in all extremities. Sensory grossly intact. Cerebellar exam normal. Normal gait. Psych: Awake, alert, with orientation to person, place and time. Behavior, mood, and affect are within normal limits. 10:33 ECG was reviewed by the Attending Physician. ms3 Vital Signs: 06:10 BP 175 / 94; Pulse 85; Resp 18; Temp 98.4; Pulse Ox 98% ; Weight 123.83 kg; Height 5 bm8 ft. 4 in. ; Pain 0/10; 06:42 BP 137 / 77; Pulse 76; Resp 18; Temp 98.4; Pulse Ox 98% ; Pain 0/10; bm8 09:28 BP 163 / 94; Pulse 71; Resp 15; Pulse Ox 97% ; bp 09:57 BP 156 / 93; Pulse 72; Resp 16; Pulse Ox 100% ; bp 06:10 Body Mass Index 46.86 (123.83 kg, 162.56 cm) bm8 06:10 Pain Scale: Adult bm8 06:42 Pain Scale: Adult bm8 Giovanni Coma Score: 06:42 Eye Response: spontaneous(4). Motor Response: obeys commands(6). Verbal Response: bm8 oriented(5). Total: 15. MDM: 06:04 Medical Screening Exam initiated sp3 06:48 Data reviewed: vital signs, nurses notes, lab test result(s), EKG, radiologic studies. sp3 ED course: 69-year-old female with mild dyspnea and elevated blood pressure. Consider anginal equivalent, acute coronary syndrome, CHF, pneumonia, bronchitis, among others. Workup will include EKG, chest x-ray and general labs. Disposition pending workup and patient course. Patient be reevaluated by daytime physician Dr. Merrill will be taking over this patient at shift change at 7 AM.. 09:47 Differential diagnosis: hypertensive crisis, Malignant HTN, MN. Consideration of ms3 Admission/Observation Escalation of care including admission/observation considered. Management of patient was discussed with the following: Primary Care Provider: Dr Love. Independent interpretation of the following test(s) in the Emergency Department EKG: See my EKG interpretation above. Counseling: I had a detailed discussion with the patient and/or guardian regarding the historical points, exam findings, and any diagnostic results supporting the discharge/admit diagnosis, lab results, radiology results, the need for outpatient follow up, to return to the emergency department if symptoms worsen or persist or if there are any questions or concerns that arise at home. ED course: Discussed case with patient's primary care physician Dr. Love. Patient follow-up Dr. Love in 2 to 3 days. Patient understands agrees with plan. Questions were answered. Return precautions discussed include worsening symptoms, or any other concerns. On reevaluation patient is alert, in no apparent distress, nontoxic-appearing, speaking full sentences. Patient's chest pain has resolved. Patient second troponin negative. 11/11 06:26 Order name: Basic Metabolic Panel; Complete Time: 07:46 sp3 11/11 06:26 Order name: CBC with Diff; Complete Time: 07:46 sp3 11/11 06:26 Order name: LFT's; Complete Time: 07:46 sp3 11/11 06:26 Order name: Magnesium; Complete Time: 07:46 sp3 11/11 06:26 Order name: NT PRO-BNP; Complete Time: 07:46 sp3 11/11 06:26 Order name: PT-INR; Complete Time: 07:46 sp3 11/11 06:26 Order name: Troponin HS; Complete Time: 07:46 sp3 11/11 07:47 Order name: Troponin High Sensitivity; Complete Time: 09:40 ms3 11/11 06:26 Order name: XRAY Chest (1 view); Complete Time: 07:46 sp3 11/11 06:26 Order name: Cardiac monitoring; Complete Time: 07:04 sp3 11/11 06:26 Order name: EKG - Nurse/Tech; Complete Time: 07:04 sp3 11/11 06:26 Order name: IV Saline Lock; Complete Time: 07:04 sp3 11/11 06:26 Order name: Labs collected and sent; Complete Time: 07:04 sp3 11/11 06:26 Order name: O2 Per Protocol; Complete Time: 07:04 sp3 11/11 06:26 Order name: O2 Sat Monitoring; Complete Time: 07:04 sp3 11/11 07:47 Order name: Repeat Cardiac Enzymes at: repeat trop at 0905; Complete Time: 08:57 ms3 EC:33 Rate is 76 beats/min. Rhythm is regular. QRS [place] is Normal. [place] interval is normal. QRS ms3 interval is normal. QT interval is normal. Clinical impression: Normal ECG. Interpreted by me. Reviewed by me. Administered Medications: No medications were administered Disposition Summary: 11/11/24 09:50 Discharge Ordered Notes: Location: Home ms3 Condition: Stable ms3 Diagnosis - Essential (primary) hypertension ms3 - Chest pain, unspecified ms3 Followup: ms3 - With: Rex Love MD - When: 2 - 3 days - Reason: Recheck today's complaints Discharge Instructions: - Discharge Summary Sheet ms3 - Nonspecific Chest Pain, Adult ms3 - Hypertension, Adult ms3 Forms: - Medication Reconciliation Form ms3 - Antibiotic Education ms3 - Prescription Opioid Use ms3 - Patient Portal Instructions ms3 - Leadership Thank You Letter ms3 Signatures: Dispatcher [employer] EDMS Paco Merrill DO DO ms3 Joon Robertson MD MD sp3 Kris Tellez, RN RN bm8 Corrections: (The following items were deleted from the chart) 06:27 06:26 BASIC METABOLIC PANEL+C.LAB.BRZ ordered. EDMS EDMS 06:27 06:26 CBC+H.LAB.BRZ ordered. EDMS EDMS 06:27 06:26 HEPATIC FUNCTION+C.LAB.BRZ ordered. EDMS EDMS 06:27 06:26 MAGNESIUM+C.LAB.BRZ ordered. EDMS EDMS 06:27 06:26 PROBNP+C.LAB.BRZ ordered. EDMS EDMS 06:27 06:26 PROTIME (+INR)+COAG.LAB.BRZ ordered. EDMS EDMS 06:27 06:26 Troponin High Sensitivity+C.LAB.BRZ ordered. EDMS EDMS 06:27 06:27 Chest Single View+RAD.RAD.BRZ ordered. EDMS EDMS 07:47 07:47 Troponin High Sensitivity+C.LAB.BRZ ordered. EDMS EDMS
[2024-11-11 10:57] VITALS: TEMP 98.4
[2024-11-11 11:02] VITALS: BP 156/93; O2SAT 100
--- NOTE | 2024-11-14 12:12 | EKG ---
Test Date: 2024-11-11 Test Time: 06:52:13 Career Development Counselor: LISA MEASUREMENT RESULTS: Intervals: Rate: 76 NC: 182 QRSD: 98 QT: 398 QTc: 447 [place]: P: 3 NC: 182 QRS: -18 T: 24 INTERPRETIVE STATEMENTS: Normal sinus rhythm Normal ECG Compared to ECG 09/11/2024 09:49:58 No significant changes Electronically Signed On 11-14-24 12:08:24 CDT by Aaron Singh
== END 2024-11-11 10:03 | disposition home or self-care (01) ==
LOC: ER 05:42
DX: I10 Essential (primary) hypertension (principal); R07.9 Chest pain, unspecified; E78.00 Pure hypercholesterolemia, unspecified
CPT/HCPCS: 36415; 71045; 80048; 80076; 83735; 83880; 84484; 85025; 85610; 93005; 99284

== ENCOUNTER 2025-02-13 14:06 | Inpatient (IN) | payer OTHER, MEDICARE ==
--- OUTSIDE RECORDS SUMMARY | 2025-02-13 14:12 | XMS REPORT | Continuity of Care Document ---
Author Name Unknown Address [address] [place] [address] Organization [facility] [place] Address [address] [place] [address] Care Team Providers Care Economic Adviser Name Role Phone Link Love Primary Care Physician [phone] JESSE REECE Attending Clinician TONY Romero Attending Clinician ARMIN Frias Attending Clinician Dima Morales MD Attending Clinician DIMA DAVIS Attending Clinician Elaine Melendez MA Attending Clinician SURINDER Morgan Attending Clinician Radha kaplan Payers Payer Name Policy Type Policy Number Effective Date Expirati on Date Source MEDICARE PART A AND B [id number] 2018 00:00:00 MEDICARE-PART B 5 [id number] 2023 00:00:00 [employer]ARP/[place] 4 [id number] 2022 00:00:00 MEDICARE PART A AND B Medicare [id number] 2024 00:00:00 Problems Condition Name Condition Details [...] 3-28 00:00: 00 2024-05-31 00:00:00 2024-05-31 15:49:22 [facility] Allergies, Adverse Reactions, Alerts Allergy Name Allergy Type Status Severity Reaction(s) Onset Date Inactive Date Treating Clinician Comments Source Trimetho prim Allergy to substanc e Active Hiv12-27 00:00: 00 [facility] Hydrocod one Allergy to substanc e Active Hives 12-27 00:00: 00 [facility] Hydrocod one-Acet aminophe n Propensi ty to adverse reaction s Active [facility] 11-17 00:00: 00 Sari Boland - Externa omar Ibuprofe n Propensi ty to adverse reaction s Active 11-17 00:00: 00 Sari Boland - Externa omar Isradipi ne Propensi ty to adverse reaction s Active 11-17 00:00: 00 Sari Boland - Externa omar Metoclop ramide Propensi ty to adverse reaction s Active 11-17 00:00: 00 Sari Boland - Saula omar Niacin And Related Propensi ty to adverse reaction s Active 11-17 00:00: 00 Sari Boland - Externa omar Penicill ins Propensi ty to adverse reaction [...] 00:00: 00 Sari Freemanold - Externa l Aspirin Propensi ty to adverse reaction s Active Hives 11-17 00:00: 00 Sari Freemanold - Externa l Atenolol Propensi ty to adverse reaction s Active Hives 11-17 00:00: 00 Sari Freemanold - Externa l Bismuth Subsalic ylate Propensi ty to adverse reaction s Active Hives 11-17 00:00: 00 Sari Freemanold - Externa l Metronid -Tetracy c-Bis Subsal Propensi ty to adverse reaction s Active Hives 08-28 00:00: 00 [facility] Sulfa Antibiot ics Propensi ty to adverse reaction s Active Hives 08-28 00:00: 00 [facility] Metronid -Tetracy c-Bis Subsal Drug Intolera nce Active Hives 08-28 00:00: 00 Florentino Hensley Epic Acetamin ophen-Co deine Drug Allergy Active Unknown 07-15 00:00: 00 [place] lighthead ed after taking on an empty stomach [facility] Bismuth Subsalic ylate Allergy to substanc e Active Hives 07-15 00:00: 00 [facility] Metoclop ramide Allergy to substanc e Active Hives, Other, Unknown 07-15 00:00: 00 [place] shaky Florentino Hensley Epic Metronid azole Allergy to substanc e Active Hives 07-15 00:00: 00 Florentino Hensley Epic Niacin Allergy to substanc e Active Hives, Rash, Unknown 07-15 00:00: 00 Memvioletta Hensley Epic Sulfa Antibiot ics Drug Intolera nce Active Hives 07-15 00:00: 00 Florentino Hensley Epic Tetracyc line Allergy to substanc e Active Hives 07-15 00:00: 00 Memvioletta Hensley Epic Tramadol Allergy to substanc e Active Hives, Unknown 07-15 00:00: 00 Other Reaction( s): Confusion Feels groggy Memvioletta Hensley Epic Triamter amrita Allergy to substanc e Active Other, Unknown 07-15 00:00: 00 Other Reaction( s): Faint Feeling Pruritis as well Memvioletta Hensley Epic Verapami l Allergy to [...] 07-15 00:00: 00 Memoria omar Hensley Epic Hydrocod one-Acet aminophe n Drug Intolera nce Active Hives 07-15 00:00: 00 Memoria omar PressleyMary D Epic Hydrocod one-Acet aminophe n Drug Allergy Active Hives 07-15 00:00: 00 [facility] Sulfate Allergy to substanc e Active Hives 07-15 00:00: 00 [facility] Rudy Inhibito rs Allergy to substanc e Active Rash 07-15 00:00: 00 [facility] Rudy Inhibito rs Drug Intolera nce Active Cough, Rash 01-27 00:00: 00 cough Memvioletta Hensley Epic Verapami l Allergy to substanc e Active Hives, Other, Unknown, Anaphylaxis 01-27 00:00: 00 Tender gums Florentino Hensley Epic Hydrocod one-Acet aminophe n Drug Intolera nce Active Hives 3-23 00:00: 00 Itching all over 3.2012 Memoria omar Hensley Epic Acetamin ophen-Co deine Drug Intolera nce Active Dizziness, Unknown 0 5-17 00:00: 00 Co[place] lighthead ed after taking on an empty stomach Lighthead edness - after pt took it in am on an empty stomach Florentino Hensley Epic Atenolol Allergy to substanc e Active Hives 0 6-19 00:00: 00 Florentino Hensley Epic Isradipi ne Allergy to substanc e Active Hives 0 9-25 00:00: 00 Light headed/ra sh Memvioletta Hensley Epic Penicill ins Drug Allergy Active Hives 04-06 00:00: 00 Florentino Hensley Epic Sulfamet hoxazole -Trimeth oprim Propensi ty to adverse reaction s Active Hives 0 04-06 00:00: 00 Florentino Hensley Epic Aspirin Propensi ty to adverse reaction s Active Hives 0 04-06 00:00: 00 Florentino Hensley Epic Ibuprofe n Allergy to substanc e Active Hives 0 04-06 00:00: 00 Florentino Hensley Epic Aspirin Allergy to substanc e Active Hives 0 04-06 00:00: 00 [facility] Ibuprofe n Propensi ty to adverse reaction s Active Hives 0 04-06 00:00: 00 [facility] Penicill ins Propensi ty to adverse reaction s Active Hives 0 04-06 00:00: [address] [facility] [place] [place] Bismuth Subsalic ylate Allergy to substanc e Active Hives 0 8 00:00: 00 Florentino Hensley Epic Ibuprofe n Allergy to substanc e Active Hives 2002-07 1-17 00:00: 00 Florentino Hensley Epic PENICILL INS Allergy to substanc e Active [facility] SULFA (SULFONA MIDE ANTIBIOT ICS) Allergy to substanc e Active [facility] Sulfamet hoxazole Allergy to substanc e Active [facility] Triamter amrita Allergy to substanc e Active [facility] Atenolol Allergy to substanc e Active [facility] [...] female gender (finding) Castillo Pappas ASSERTION Possible [facility] [place] [place] Sexual orientation [facility] Alcoholic beverage intake 2024-08-26 00:00:00 2024-08-26 00:00:00 Ex-drinker (finding) [facility] History of Social function 2024-08-26 00:00:00 2024-08-26 00:00:[address] [facility] [place] Tobacco use and exposure 2024-05-31 00:00:00 2024-05-31 00:00:00 Smokeless tobacco non-user [facility] Alcohol intake 2023-03-24 00:00:00 2023-03-24 00:00:00 Ex-drinker (finding) [facility] [place] Sex 2023-01-06 14:06:52 2023-01-06 14:06:52 Female (finding) [facility] [place] Sex assigned at 1955 00:00:00 1955 00:00:00 Sari Boland - External Smoking Status Start Date Stop Date Source Never smoked tobacco Florentino nelson [facility] Medications Ordered Medication Name Filled Medication Name Start Date Stop Date Current Medication? Ordering Clinician Indication Dosage Frequency Signature (SIG) Comments Components Source isosorbide mononitrate ER (Imdur) 30 MG 24 hr tablet 08-26 10:20: 32 Yes 30mg QD Take 30 mg by mouth 1 (one) time each day. [facility] [place] [place] losartan (Cozaar) 100 MG tablet 08-26 10:20: 32 Yes 100mg QD Take 100 mg by mouth 1 (one) time each day. [facility] [place] furosemide (Lasix) 40 MG tablet 08-26 10:20: 32 Yes 40mg Take 40 mg by mouth 1 (one) time each day if needed. NEEDED FOR LEG SWELLING [facility] [place] [place] amLODIPine (Norvasc) 10 MG tablet 08-26 10:20: 32 Yes 10mg QD Take 10 mg by mouth 1 (one) time each day. [facility] [place] [place] cholecalcif nitesh (Vitamin D-3) 50 MCG (2000 UT) capsule 08-26 10:20: 32 Yes 2000U QD Take 2,000 Units by mouth 1 (one) time each day. [facility] [place] [place] brimonidine (AlphaGAN) 0.2 % ophthalmic solution 08-26 10:20: 32 Yes INSTILL 1 DROP INTO RIGHT EYE ONLY EVERY [address] [facility] [place] [place] prednisoLON E acetate (Pred-Forte ) 1 % ophthalmic suspension 08-26 10:20: 32 Yes See administra tion instructio ns. PLEASE SEE ATTACHED FOR DETAILED DIRECTIONS [facility] [place] [place] atorvastati n (Lipitor) 40 MG tablet 2023-07 00:00: 00 Yes 40mg Take 40 mg by mouth every night. [facility] [place] [place] Glycerin-Po lysorbate 80 (REFRESH DRY EYE THERAPY [...] DAILY 30MIN BEFORE BREAKFAST. STOP OMEPRAZOLE Florentino Hensley [facility] atorvastati n (Lipitor) 40 MG tablet atorvastati n (Lipitor) 40 MG tablet 2023-07 0-07 00:00: 00 Yes 40mg QD Take 40 mg by mouth 1 time each day. Florentino Hensley [facility] Atorvastati n Calcium 10 MG oral [...] mg total) by mouth daily. Sari nelson Brimonidine Tartrate 0.2 % ophthalmic Solution 11-12 00:00: 00 Yes 1[drp] Place 1 drop into both eyes every 12 hours. Sari nelson prednisoLON E Acetate 1 % ophthalmic Suspension 11-12 00:00: 00 Yes INSTILL 1 DROP INTO RIGHT EYE TWICE A WEEK Sari nelson Amlodipine Besylate 10 MG oral Tablet -07 00:00: 00 Yes 10mg Take 1 tablet (10 mg total) by mouth daily. Sari nelson Famotidine (PEPCID) 20 MG oral tablet 3-13 00:00: 00 Yes 20mg Take 1 tablet (20 mg total) by mouth 2 times daily. Sari nelson furosemide (Lasix) 40 MG tablet furosemide (Lasix) 40 MG tablet 3-07 00:00: 00 Yes 40mg 40 mg. Florentino Hensley [facility] atorvastati n (Lipitor) 10 MG tablet 6-30 00:00: [address] [facility] [place] moxifloxaci n 0.5 % eye drops PLACE 1 DROP IN THE SURGICAL EYE 3 TIMES A DAY FOR 7 DAYS. moxifloxaci n 0.5 % eye drops PLACE 1 DROP IN THE SURGICAL EYE 3 TIMES A DAY FOR 7 DAYS. No moxifloxac in 0.5 % eye drops PLACE 1 DROP IN THE SURGICAL EYE 3 TIMES A DAY FOR 7 DAYS. [facility] sodium,pota ssium,mag sulfates 17.5 gram-3.13 gram-1.6 gram oral soln PLEASE SEE ATTACHED FOR DETAILED DIRECTIONS sodium,pota ssium,mag sulfates 17.5 gram-3.13 gram-1.6 gram oral soln PLEASE SEE ATTACHED FOR DETAILED DIRECTIONS No sodium,pot assium,mag sulfates 17.5 gram-3.13 gram-1.6 gram oral soln PLEASE SEE ATTACHED FOR DETAILED DIRECTIONS [facility] Immunizations Ordered Immunization Name Filled Immunization Name Date Status Comments Source Tdap 2021-02-22 00:00:00 Completed [facility] Tdap 2021-02-22 00:00:00 Completed PPD Test 2014-11-06 00:00:[address] [facility] [place] [place] PPD Test 2014-11-06 00:00:00 Completed Influenza, seasonal, injectable, with preservative (Afluria, Fluzone) 2014-05-04 00:00:[address] [facility] [place] [place] Influenza, seasonal, injectable, with preservative (Afluria, Fluzone) 2014-05-04 00:00:00 Completed Tdap 2006-11-26 00:00:00 Completed [facility] Tdap 2006-11-26 00:00:00 Completed Influenza, Unspecified 6 00:00:00 Completed [facility] Influenza, Unspecified 6 00:00:00 Completed Influenza, Unspecified 2002-04-13 2 00:00:00 Completed [facility] Influenza, Unspecified 2002-04-13 2 00:00:00 Completed Influenza, Unspecified 6 00:00:00 Completed [facility] Influenza, Unspecified 6 00:00:00 Completed Pneumococcal Polysaccharide PPV23 2001-05-11 00:00:00 Completed [facility] Pneumococcal Polysaccharide PPV23 2001-05-11 00:00:00 Completed PPD Test 2000-09-14 00:00:[address] [facility] [place] [place] PPD Test 2000-09-14 00:00:00 Completed TD (adult), 2 Lf tetanus toxoid, preservative free, adsorbed 1995-03-12 00:00:00 Completed [facility] TD (adult), 2 Lf tetanus toxoid, preservative free, adsorbed 1995-03-12 00:00:00 Completed PPD Test 1995-03-04 00:00:[address] [facility] [place] PPD Test 1995-03-04 00:00:00 Completed Vital Signs Vital Name Observation Time Observation Value Comments S stephen Systolic blood pressure 2024-10-11 09:09:00 134 mm[Hg] [facility] Diastolic blood pressure 2024-10-11 09:09:00 82 mm[Hg] [facility] Heart rate 2024-10-11 09:09:00 74 /[facility] temperature 2024-10-11 09:09:00 36.22 [facility] Respiratory rate 2024-10-11 09:09:00 16 /min [facility] Body height 2024-10-11 09:09:00 162.6 cm [facility] Body weight 2024-10-11 09:09:00 126.826 kg [facility] BMI 2024-10-11 09:09:00 47.99 kg/m2 Sourav [facility] Oxygen saturation in Arterial blood by Pulse oximetry 2024-10-11 09:09:00 96 /min [facility] Her dunn [facility] Systolic blood pressure 2024-10-11 09:09:00 134 mm[Hg] [facility] Diastolic blood pressure 2024-10-11 09:09:00 82 mm[Hg] [facility] Heart rate 2024-10-11 09:09:00 74 /min Memor ial [facility] Body temperature 2024-10-11 09:09:00 36.22 [facility] Respiratory rate 2024-10-11 09:09:00 16 /min [facility] Body height 2024-10-11 09:09:00 162.6 cm Sourav [facility] Body weight 2024-10-11 09:09:[address] [facility] BMI 2024-10-11 09:09:00 47.99 [facility] Oxygen saturation in Arterial blood by Pulse oximetry 2024-10-11 09:09:00 96 /min [facility] Body height 2024-08-26 16:15:00 [facility].8 [facility] weight 2024-08-26 16:15:00 [facility].75 [facility] BMI 2024-08-26 16:15:00 44.62 kg[facility]m2 [facility] Systolic blood pressure 2024-07-15 15:56:00 131 mm[Hg] [facility] Diastolic blood pressure 2024-07-15 15:56:00 95 mm[Hg] [facility] Heart rate 2024-07-15 15:56:00 80 /min Memor ial Ayden [facility] Body temperature 2024-07-15 15:56:00 36.33 [facility] Respiratory rate 2024-07-15 15:56:00 16 /min [facility] Body height 2024-07-15 15:56:00 163.8 cm Sourav rial [facility] Body weight 2024-07-15 15:56:00 123.832 kg Sourav rial Ayden Epic BMI 2024-07-15 15:56:00 46.14 kg/m2 Sourav rial Mary D Epic Oxygen saturation in Arterial blood by Pulse oximetry 2024-07-15 15:56:00 99 /min [facility] Systolic blood pressure 2024-07-15 15:56:00 131 mm[Hg] [facility] Diastolic blood pressure 2024-07-15 15:56:00 95 mm[Hg] [facility] Heart rate 2024-07-15 15:56:00 80 /min Memor ial Ayden Epic Body temperature 2024-07-15 15:56:00 36.33 [facility] Epic Respiratory rate 2024-07-15 15:56:00 16 /min [facility] Body height 2024-07-15 15:56:00 163.8 cm Sourav rial Ayden Epic Body weight 2024-07-15 15:56:00 123.832 kg Sourav rial Ayden Epic BMI 2024-07-15 15:56:00 46.14 kg/m2 Sourav rial Mary D Epic Oxygen saturation in Arterial blood by Pulse oximetry 2024-07-15 15:56:00 99 /min [facility] Systolic blood pressure 2024-05-31 15:46:00 131 mm[Hg] [facility] Diastolic blood pressure 2024-05-31 15:46:00 82 mm[Hg] [facility] Epic Heart rate 2024-05-31 15:46:00 81 /min Memor ial Mary D Epic Body temperature 2024-05-31 15:46:00 36.5 [facility] Respiratory rate 2024-05-31 15:46:00 16 /min [facility] Body height 2024-05-31 15:46:00 163.8 cm Sourav rial Ayden Epic Body weight 2024-05-31 15:46:00 120.203 kg Sourav rial Ayden Epic BMI 2024-05-31 15:46:00 44.78 kg/m2 Sourav rial Mary D Epic Oxygen saturation in Arterial blood by Pulse oximetry 2024-05-31 15:46:00 97 /min [facility] Systolic blood pressure 2024-05-31 15:46:00 131 mm[Hg] [facility] Diastolic blood pressure 2024-05-31 15:46:00 82 mm[Hg] [facility] Epic Heart rate 2024-05-31 15:46:00 81 /min Memor ial Mary D [facility] Body temperature 2024-05-31 15:46:00 36.5 [facility] Respiratory rate 2024-05-31 15:46:00 16 /min [facility] Body height 2024-05-31 15:46:00 163.8 cm Sourav rial Mary D Epic Body weight 2024-05-31 15:46:00 120.203 kg Sourav rial Ayden Epic BMI 2024-05-31 15:46:00 44.78 kg/m2 Sourav rial Mary D Epic Oxygen saturation in Arterial blood by Pulse oximetry 2024-05-31 15:46:00 97 /min [facility] BP Diastolic 2024-05-23 00:00:00 90 mm[Hg] [facility] BP Systolic 2024-05-23 00:00:00 144 mm[Hg] [facility] BMI (Body Mass Index) 2024-05-23 00:00:00 46.1 kg/m2 [facility] Body Weight 2024-05-23 00:00:00 268.3 [lb_av] [facility] Height 2024-05-23 00:00:00 64 [in_i] [facility] Systolic blood pressure 2023-11-18 13:44:00 141 mm[Hg] Sari Seybo ld - External Diastolic blood pressure 2023-11-18 13:44:00 87 mm[Hg] Sari Seybo ld - External Heart rate 2023-11-18 13:44:00 81 /min Kel y Seybold - External Body temperature 2023-11-18 13:44:00 36.33 Cara Sari Seybold - External Respiratory rate 2023-11-18 13:44:00 16 /min Sari Seybold - External Body height 2023-11-18 13:44:00 162.6 cm Orly ey Seybold - External Body weight 2023-11-18 13:44:00 119.477 kg Orly ey Seybold - External BMI 2023-11-18 13:44:00 45.21 kg/m2 Orly ey Seybold - External Oxygen saturation in Arterial blood by Pulse oximetry 2023-11-18 13:44:00 97 /min Sari Seybo ld - External Systolic blood pressure 2023-03-24 16:12:00 130 mm[Hg] [facility] Diastolic blood pressure 2023-03-24 16:12:00 83 mm[Hg] [facility] Heart rate 2023-03-24 16:12:00 74 /min [facility] Body temperature 2023-03-24 16:12:00 36.5 [facility] Body height 2023-03-24 16:12:00 [facility].6 [facility] Body weight 2023-03-24 16:12:00 119.75 [facility] BMI 2023-03-24 16:12:00 45.32 [facility]m2 [facility] Procedures Procedure Date / Time Performed Performing Clinician Source CT angiogram brain 2024-08-26 00:00:[address] CT angiogram brain 2024-05-31 [facility] 2024-05-31 00:00:00 [facility] US, transvaginal 2024-05-23 00:00:00 [facility] Cataract Surgery 2024-03-21 00:00:00 [facility] Procedure on Heart [facility] Plan of Care Planned Activity Planned Date Details Comments Source Encounters Start Date/Time End Date/Time Encounter Type Admission Type Attending [facility] Care Facility Care Department Encounter ID Source 2023-02-10 12:55:[address] [facility] [id number] [facility] [place] [place] 2023-02-09 10:30:[address] [facility] [id number] [facility] [place] [place] 2023-01-20 09:51:[address] [facility] [id number] [facility] [place] [place] 2023-01-06 14:06:[address] [facility] [id number] [facility] [place] [place] 2025-08-22 11:00:00 2025-08-22 11:00:00 Outpatient JESSE REECE [facility] [id number] [facility] [place] [place] 2025-08-15 10:30:00 2025-08-15 10:30:00 Outpatient TONY BROOKS [facility] [id number] [facility] [place] [place] 2024-11-16 10:30:00 2024-11-16 10:30:00 Outpatient ARMIN NORWOOD [id number] [facility] 2024-10-11 09:00:00 2024-10-11 09:25:21 Office Visit Dima Davis [id number] Florentino nelson Mary D [facility] 2024-10-11 08:42:06 2024-10-11 09:25:21 Outpatient DIMA DAVIS JOZEF MHEOUT [id number] MHELANDY 2024-08-26 00:00:00 2024-08-26 12:49:40 Orders Only Jesse Reece [facility] [id number] Florentino nelson [facility] 2024-08-26 10:30:00 2024-08-26 12:34:04 Telemedici nesha Jesse Reece [facility] [address] [id number] [facility] [place] [place] 2024-07-21 00:00:00 2024-08-21 23:52:47 Telephone Elaine Tijerina [facility] [place] [id number] Florentino nelson [facility] 2024-07-15 16:00:00 2024-07-15 16:39:04 Office Visit Dima Davis [id number] Florentino nelson [facility] 2024-07-15 15:19:44 2024-07-15 16:39:04 Outpatient Elective DIMA DAVIS MHEOUT MHEOUT [id number] MHEOUT 2024-06-20 09:25:51 2024-06-20 14:23:32 Outpatient Elective MHEOUT MHEOUT [id number] MHEOUT 2024-06-20 09:26:08 2024-06-20 14:23:21 Outpatient Elective MHEOUT MHEOUT [id number] MHEOUT 2024-05-31 15:45:00 2024-05-31 16:25:17 Consult Dima Davis [id number] Florentino nelson [facility] 2024-05-31 15:28:38 2024-05-31 16:25:17 Outpatient DIMA DAVIS MHEOUT MHEOUT [id number] MHEOUT 2024-05-23 00:00:00 2024-05-23 00:00:00 Anitha Sequeira MD: [address], [address], [place] [address] , Ph. [phone] [facility] [place] [id number] [facility] 2023-11-18 08:30:00 2023-11-18 08:30:00 Outpatient ARMIN NORWOOD [id number] [facility] 2023 16:20:00 2023 16:20:00 Outpatient SARI EDUARDO [id number] [facility] 2023 00:00:00 2023 00:00:00 Outpatient ARMIN NORWOOD [id number] [facility] 2023-09-15 13:30:00 2023-09-15 13:30:00 Outpatient SURINDER REYNOSO [id number] [facility] 2023-03-24 11:30:00 2023-03-24 11:50:00 Office Visit Jesse Reece Rodo [facility] [address] [id number] [facility] [place] [place] 2023-02-17 10:00:00 2023-02-17 10:00:00 Outpatient JESSE REECE [facility] [id number] [facility] [place] Notes Date/Time Note Provider Source 2024-10-11 09:50:01 [facility]2025-04-01 09:50:01* Dima Davis MD - 10/11/2024 9:00 AM CDT History of Present Illness HPI Stable, occasional headaches. Made it to [facility], NSGY recommended monitoring on a yearly basis. [...] 04/06/2005 Metoclopramide Hives, Other, and Unknown 07/15/2014 Zsadvdcn-akregtgo-fxd subsal Hives 08/28/2017 Metronidazole Hives 07/15/2014 Penicillins [...] by: Clem Beard MD 06/20/2024 04:09 PM PUTTY REMOVER RPWorkstation: [id number] Assessment & PlanDiagnoses and all orders for this visit: Cerebral aneurysm without rupture Yearly imaging and exam [id number] 09:50:01Upcoming Encounters Health Maintenance Due Date Last [...] on patient's age to complete this topic [id number] 09:50:01 Diagnosis Cerebral aneurysm without ru pture - Primary [facility]enKtmvmfg1775-32-23 09:50:01 [facility]enBblnjam9722-07-11 09:50:01* [facility]enRpsvuda9493-47-92 09:50:01 [facility]enGfadvqg5933-62-71 09:50:01* Dima Davis MD - 10/11/2024 9:00 AM CDT History of Present Illness HPI Stable, occasional headaches. Made it to [facility], NSGY recommended monitoring on a yearly basis. [...] 04/06/2005 Metoclopramide Hives, Other, and Unknown 07/15/2014 Ggphjllr-yxlwizaz-scz subsal Hives 08/28/2017 Metronidazole Hives 07/15/2014 Penicillins [...] by: Clem Beard MD 06/20/2024 04:09 PM PUTTY REMOVER RPWorkstation: [id number] Assessment & PlanDiagnoses and all orders for this visit: Cerebral aneurysm without rupture Yearly imaging and exam [facility]2025-04-01 09:50:01Upcoming Encounters Health Maintenance Due Date Last [...] on patient's age to complete this topic [facility]Icihqqc5933-16-[facility] 09:50:01 Diagnosis Cerebral aneurysm without ru pture - Primary [facility]enJomezsf3655-66-52 09:50:01 [facility]enFxmmwqb3053-95-93 12:49:45* Imaging (Routine) - Authorized Specialty Diagnoses / Procedures Referred By Contkunal t Referred To Contact Radiology Diagnoses Cerebral aneurysm, nonruptured Procedures CT angiogram brain Jesse Reece MD [address] [facility] [address] [place] [address] Phone: tel: fax: Referral ID Status Reason Start Date Expiration Date V isits Requested Visits Authorized [id number] Authorized 08/26/2024 02/22/2025 1 1 Y REMOVER [facility]enAwnizhc3962-62-20 12:49:45 [facility]enYpyqrnv2298-37-68 12:49:45Upcoming Encounters Scheduled Orders Name Type Priority [...] on patient's age to complete this topic [facility] Mc[facility]enEnvgjao7064-85-14 12:49:45 Diagnosis Cerebral aneurysm, nonruptur ed [facility] Mc[facility]enFdwwdzo6005-83-98 12:49:45 [facility] Mc[facility]enFlfajob1305-81-26 10:30:00 Addended by: YE BETANCUR on: 08/26/2024 12:50 PM Modules accepted: Orders [facility]2025-02-09 23:56:49 [facility] Mc[facility]enJeauquw1729-11-00 23:56:49Upcoming Encounters Health Maintenance Due Date Last [...] on patient's age to complete this topic [facility] Hehxcql5577-02-90 23:56:49 [facility] Uvxpzfx0676-52-76 16:34:[address] Reece's office noted the patient is already established with Dr. Rodo Reece. She is asking if the referral to Dr. Mark Anthony Reece is for a second opinion or if the patient should continue with Dr. Rodo Reece, as both doctors work in the same field and location. Y REMOVER [facility] Hcdmwmd1379-50-78 17:32:09 [facility] Jgqahxo9633-60-38 17:32:09* Consultation (Routine) - Authorized Specialty Diagnoses / Procedures Referred By Contac t Referred To Contact Neurosurgery Diagnoses Cerebral aneurysm without rupture Dima Davis MD [address] [place] [address] Phone: tel: fax: Mark Anthony Reece MD [address] [facility] [address] [place] [address] Phone: tel: fax: Referral ID Status Reason Start Date Expiration Date Visits Requested Visits Authorized [id number] Authorized Specialty Services Required 07/15/2024 01/11/2025 99 99 Y REMOVER [facility] Mc[facility]enOguzrqo3200-24-69 17:32:09* [facility]enXqnivlg7653-48-30 17:32:09 [facility]29 17:32:09* Dima Davis MD - 07/15/2024 4:00 PM PUTTY REMOVER History of Present Illness HPI Patient returns [...] 04/06/2005 Metoclopramide Hives, Other, and Unknown 07/15/2014 Grmjdvoc-cqtomcmf-qoo subsal Hives 08/28/2017 Metronidazole Hives 07/15/2014 Penicillins [...] by: Clem Beard MD 06/20/2024 04:09 PM PUTTY REMOVER RPWorkstation: [id number] Assessment & PlanDiagnoses and all orders for this visit: Cerebral aneurysm without rupture Neurosurgery opinion/consult Y [facility] Ygaibkt9228-78-53 17:32:09Upcoming Encounters Scheduled Referrals Name Type Priority [...] on patient's age to complete this topic [facility]jpzob7386-94-52 17:32:09 Diagnosis Cerebral aneurysm without ru pture - Primary [facility] McallenVaydbdz3170-28-71 17:32:09 [facility]enChyikjl6725-09-74 17:32:09* Consultation (Routine) - Authorized Specialty Diagnoses / Procedures Referred By Contkunal t Referred To Contact Neurosurgery Diagnoses Cerebral aneurysm without rupture Dima Davis MD [address] [place] [address] Phone: tel: fax: Mark Anthony Reece MD [address] [facility] [address] [place] [address] Phone: tel: fax: Referral ID Status Reason Start Date Expiration Date Visits Requested Visits Authorized [id number] Authorized Specialty Services Required 07/15/2024 01/11/2025 99 99 Y REMOVER [facility] Mc[facility]enWhpvqgc5696-20-62 17:32:09* [facility]enYyqmniy5002-60-27 17:32:09 [facility] McallenSiupnso1351-56-45 17:32:09* Dima Davis MD - 07/15/2024 4:00 PM PUTTY REMOVER History of Present Illness HPI Patient returns [...] 04/06/2005 Metoclopramide Hives, Other, and Unknown 07/15/2014 Tdwwupbp-wzopcjgs-aov subsal Hives 08/28/2017 Metronidazole Hives 07/15/2014 Penicillins [...] by: Clem Beard MD 06/20/2024 04:09 PM PUTTY REMOVER RPWorkstation: [id number] Assessment & PlanDiagnoses and all orders for this visit: Cerebral aneurysm without rupture Neurosurgery opinion/consult Y REMOVER [facility] Qzipcey4284-15-13 17:32:09Upcoming Encounters Scheduled Referrals Name Type Priority [...] on patient's age to complete this topic [facility]enHapcqjg4701-18-11 17:32:09 Diagnosis Cerebral aneurysm without ru pture - Primary [facility] McallenWeqceeq6401-14-44 16:25:51* Imaging (Routine) - Authorized Specialty Diagnoses / Procedures Referred By Contac t Referred To Contact Radiology Diagnoses Cerebral aneurysm without rupture Procedures CT brain wo IV contrast Dima Davis MD [address] [place] [address] Phone: tel: fax: Referral ID Status Reason Start Date Expiration Date V isits Requested Visits Authorized [id number] Authorized 05/31/2024 11/27/2024 1 1 Y REMOVER* Imaging (Routine) - Authorized Specialty Diagnoses / Procedures Referred By Contac t Referred To Contact Radiology Diagnoses Cerebral aneurysm without rupture Procedures CT angiogram brain Dima Davis MD [address] [place] [address] Phone: tel: fax: Referral ID Status Reason Start Date Expiration Date V isits Requested Visits Authorized [id number] Authorized 05/31/2024 11/27/2024 1 1 Y REMOVER [facility]allenDmkfljc5550-66-30 16:25:51* [facility]enDsolyjs9321-57-88 16:25:51 [facility]allenYtxxpgh0672-90-67 16:25:51* Dima Davis MD - 05/31/2024 3:45 PM PUTTY REMOVER Isael Christy is a 68 y.o. female [...] Had labs with PCP, normal. Moved to [place] a few years ago, last imaging about [...] Bismuth subsalicylate, Hydrocodone, Hydrocodone-acetaminophen, Ibuprofen, Isradipine, Metoclopramide, Wpjctnwy-snxvlrol-ysv subsal, Metronidazole, Penicillins, Sulfa antibiotics, Sulfamethoxazole-trimethoprim, Tetracycline, [...] and symmetric in all four extremities. Coordination Mljbdy-rm-kmnb, rapid alternating movements and hivq-ri-mmmk normal bilaterally without dysmetria. GaitNormal casual, toe, [...] neurosurgery even if the aneurysms are unchanged [facility]2024-11-19 16:25:51Scheduled Orders Health Maintenance Due Date Last [...] on patient's age to complete this topic [facility] McallenRxwwnmn1666-77-84 16:25:51 Diagnosis Cerebral aneurysm without ru pture - Primary [facility]enQceqxgh3964-51-41 16:25:51 [facility]allenCzyarxw4434-37-38 08:50:55 Chief Complaint Patient presents with Consultation Pt has 2 aneurysms Height 5'4 per pt TIMUR Singh [facility]
[2025-02-13 14:33] VITALS: BMI 47.7
[2025-02-13 15:39] LABS: Absolute Lymphocytes (CBC) 1.7 K/uL (0.7-4.9); Hematocrit 39.7 % (36.0-45.0); Hemoglobin 13.3 g/dL (12.0-15.0); MCH 32.6 pg (27.0-35.0); MCHC 33.6 g/dL (32.0-36.0); MCV 96.9 fL (80-100); MPV 8.8 fL (7.6-11.3); Nucleated RBC Absolute Count 0.0 (0-0); Nucleated Red Blood Cells % 0.2 % (0-0); RBC Red Blood Cell Count 4.09 M/uL (3.86-4.86); White Blood Count 5.20 thou/uL (4.3-10.9)
[2025-02-13 16:08] LABS: ALT/SGPT 17 U/L (13-56); Albumin 3.2 g/dL (3.4-5.0); Albumin/Globulin Ratio 0.7 (1.1-1.8); Alkaline Phosphatase 72 U/L (45-117); Anion Gap 7.8 mEq/L (5.0-15.0); BUN Blood Urea Nitrogen 23 mg/dL (7-18); Globulin 4.4 g/dL (2.3-3.5); Glucose Level 94 mg/dL (74-106); Lipase 42 U/L (13-75); Magnesium 1.7 mg/dL (1.6-2.4); Potassium 3.8 mEq/L (3.5-5.1); Thyroid Stimulating Hormone 0.805 uIU/mL (0.358-3.740); Troponin High Sensitivity 4.4 pg/mL (<58.9)
[2025-02-13 16:10] LABS: AST/SGOT < 10 U/L (15-37)
--- NOTE | 2025-02-13 18:41 | RAD REPORT ---
EXAMINATION: COMPLETE ABDOMINAL ULTRASOUND CLINICAL INDICATION: RUQ pain TECHNIQUE: Grayscale ultrasonography of the abdomen was performed. COMPARISON: No prior exam. FINDINGS: LIVER: Increased echogenicity with reduced sonographic penetration and without focal mass. GALLBLADDER: No gallstones seen. BILE DUCTS: Intrahepatic and extrahepatic bile ducts appear normal. Measured near the shiva hepatis , the common bile duct is 3 mm. RIGHT KIDNEY: Normal in echogenicity and size. No calculus, solid mass or hydronephrosis. 8 cm gary gn-appearing cyst. LEFT KIDNEY:. Normal in echogenicity and size. No calculus, solid mass or hydronephrosis. Small maryan ign appearing cyst. SPLEEN: Not well seen due to bowel gas. PANCREAS/AORTA: Partially obscured by bowel gas without abnormality grossly appreciated. IMPRESSION: Mild fatty liver.
[2025-02-13] MEDS ORDERED: MORPHINE 2 MG/ML SYR IV PRN (19:52)
[2025-02-13] MEDS ORDERED: ONDANSETRON 4 MG/2 ML VIAL IV PRN (19:52)
[2025-02-13] MEDS: D5 0.9 NS 1,000 ML IV SCH (20:19)
[2025-02-13] MEDS: ENOXAPARIN 30 MG/0.3 ML SQ ONE (20:19)
[2025-02-13] MEDS: ATORVASTATIN 40 MG TAB PO SCH (20:19)
--- NOTE | 2025-02-13 20:46 | RAD REPORT ---
EXAM: Chest Pa And Lat (2 Views) HISTORY: 69 years Female chest pain COMPARISON: 11/11/2024 FINDINGS: LUNGS/PLEURA: The lungs are clear. No pleural effusions or pneumothorax. No pulmonary edema. CARDIAC/MEDIASTINUM: The cardiac silhouette is within normal limits. UPPER ABDOMEN: No significant abnormality. BONES: No acute abnormality. LINES/TUBES/OTHER: N/A IMPRESSION: No evidence of acute cardiopulmonary disease.
--- NOTE | 2025-02-13 23:31 | HP ---
Date of Admission: 02/13/2025 Chief Complaint: Chest pain, feeling tired, and short of breath. History Of Present Illness: This is a 69-year-old pleasant female patient, who came into my office t efrain with 3 days' history of intermittent chest pain in the lower center of her chest. She describes her pain as achiness type of feeling lasting for few seconds. No radiation of pain. No aggravating or relieving factors. The patient also reports that in last 2 to 3 days, she feels like she has to burp a lot. Denies any nausea, vomiting, fever, chills. No constipation or diarrhea. In last 2 to 3 days along with this pain, she is feeling very weak and tired and gets short of breath with activit y in last 3 days. She came into office with these complaints. After she was evaluated, decision was made to admit her to hospital after I evaluated her because she was found to have significant tender ness in right upper quadrant and epigastric area. Review of Systems: Cardiovascular: As mentioned above. GI: As mentioned above. Constitutional: As mentioned above. All other systems reviewed and negative. Medications: Allopurinol 100 mg takes 2 tablets daily, amlodipine 10 mg takes half a tablet daily, a torvastatin 40 mg daily at bedtime, losartan 100 mg daily, pantoprazole 40 mg daily, spironolactone 2 5 mg daily, vitamin B12 1000 mcg daily, vitamin D3 2000 units daily, and she takes eyedrops as prescr ibed by her screw eye assembler. Allergies: ASPIRIN CAUSING HIVES, PENICILLIN CAUSING HIVES, SULFA CAUSING HIVES, ATENOLOL CAUSING HI VES, BISMUTH SALICYLATE CAUSING HIVES, HYDROCODONE CAUSING HIVES, ISRADIPINE DETAILS UNKNOWN, METOCLO PRAMIDE DETAILS UNKNOWN, NIACIN DETAILS UNKNOWN, TRAMADOL DETAILS UNKNOWN, TRIAMTERENE DETAILS UNKNOW N, VERAPAMIL DETAILS UNKNOWN, IBUPROFEN DETAILS UNKNOWN. Past Medical History: Significant for history of cerebral aneurysm, glaucoma, type 2 diabetes mellit us, hypertension, hyperlipidemia, gastroesophageal reflux disease, renal cyst, [facility], gout, and chronic kidney disease stage IIIA. Past Surgical History: Cataract surgery in 2019. Family History: Mother had hypertension. Maternal grandfather had heart disease. Father details un known. Social History: Negative for smoking. Use of alcohol, occasional. Physical Examination: Vital Signs: Blood pressure 142/82, pulse 76, temperature 97.2, respiratory rate 16, weight 279 poun ds, height 64 inches. General: Awake, alert, oriented, not in distress. HEENT: Head atraumatic, normocephalic. Conjunctivae nonerythematous. Sclerae white. Mouth, no thr ush or edema noted. Ears/Nose, no mass, lesion, discharge noted. Neck: Supple. No JVD, lymph nodes, bruit, thyromegaly noted. Lungs: Bilateral good equal air entry. Clear to auscultation. No rhonchi. No rales. Heart: Normal heart sounds, no murmur or gallop. Abdomen: Soft. Bowel sounds normal. No guarding, rigidity. No rebound tenderness. Bowel sounds n ormoactive. No hepatosplenomegaly or bruit. The patient does have significant tenderness in right u pper quadrant and epigastric region. Extremities: No leg edema. No calf tenderness. Skin: No rash, ulcer, cellulitis. Lymphatics: No lymph node enlargement in neck, supraclavicular, infraclavicular region. Neuro: No focal neurological deficit. Chest: Unremarkable. External Genitalia: Deferred. Rectal: Deferred. Laboratory Data: WBC 5.2, hemoglobin 13.3, platelets 189. Sodium 139, potassium 3.8, chloride 108, bicarb 27, BUN 23, creatinine 1.16, glucose 94. Liver function tests unremarkable. Troponin 4.4. L ipase 42. TSH 0.8. EKG . Impression: 1. Chest pain. 2. Right upper quadrant abdominal pain. 3. Chronic kidney disease stage IIIA. 4. Hypertension. 5. Hyperlipidemia. 6. Type 2 diabetes mellitus. 7. Chronic kidney disease stage IIIA. 8. Gastroesophageal reflux disease. 9. Gout. Plan: Admit the patient to hospital for further evaluation and management of this problem. The irvin ent is appropriate for inpatient and is expected to spend 2 midnights in hospital. We will keep her on telemetry and consult electronics system mechanic Dr. Singh for her chest pain. The patient had coronary artery angiogram done on February 04, 2024, and it showed normal coronaries and I have reviewed that cardiac ca th results. Her chest pain appears to be atypical in nature. I am definitely concerned about her ep igastric and right upper quadrant tenderness. Likely this could be due to acute cholecystitis and I have ordered abdominal ultrasound as a part of further workup. We will follow up on that result and depending on that result, we will decide if we need to go ahead and have General Surgery consultation for laparoscopic cholecystectomy or not. All these details were discussed with the patient. For hy pertension, we will continue her antihypertensive medication. Monitor blood pressure. If necessary, adjust medication. For her hyperlipidemia, we will continue her statin therapy and no need for furt her intervention. For her gastroesophageal reflux disease, we will continue her pantoprazole and no need for further intervention. Total time spent 60 minutes including review of cardiac cath results from February 04, 2024, review of pr ior office visit record, and performing today's evaluation and management as well as making arrangeme nts for the hospital admission. Details and plan of treatment discussed with the patient. I will se e her tomorrow morning for followup. We will keep her on clear liquid diet at this point until we ma ke further decision after looking at abdominal ultrasound result. PATRICA/MODL Voice ID: [id number]
[2025-02-14 05:34] LABS: Anion Gap 8.2 mEq/L (5.0-15.0); BUN Blood Urea Nitrogen 15.0 mg/dL (7-18); Glucose Level 137.0 mg/dL (74-106); Magnesium 1.7 mg/dL (1.6-2.4); Potassium 4.2 mEq/L (3.5-5.1)
[2025-02-14] MEDS: PANTOPRAZOLE 40MG TABLET PO SCH (06:00)
[2025-02-14] MEDS: ISOSORBIDE MONO SR 30 MG TAB PO SCH (10:06)
[2025-02-14] MEDS: MAGNESIUM SULFATE 1 gm IVPB 1 GM/100 ML BAG IV ONE (10:06)
[2025-02-14] MEDS: LOSARTAN POTASSIUM 50 MG TABLET PO SCH (10:06)
[2025-02-14] MEDS: SPIRONOLACTONE 25 MG TABLET PO SCH (10:06)
[2025-02-14] MEDS: AMLODIPINE 10 MG TAB PO SCH (10:07)
--- NOTE | 2025-02-14 11:11 | CON ---
Date of Consultation: 02/14/2025 Reason For Consultation: Abdominal pain and chest pain. History Of Present Illness: The patient is a 69-year-old female who was admitted from Dr. Love's off ice with 3-day history of intermittent lower chest pain associated with reflux symptoms. She denies any nausea, vomiting, diarrhea, or constipation. No blood in her stool. No dysuria or hematuria. N o sore throat, runny nose, cough, headaches, or dizziness. No fevers or chills. Review of systems, otherwise, unremarkable. The patient on evaluation by Dr. Love in his office was found to have signi ficant tenderness in the right upper quadrant and epigastric region. There was concern raised for po ssible cholecystitis. Review of Systems: Otherwise, unremarkable. Past Medical History: Significant for cerebral aneurysm, glaucoma, type 2 diabetes, hypertension, GE RD, osteoarthritis, chronic kidney disease. Past Surgical History: Cataract surgery. Allergies: REVIEWED, INCLUDE ASPIRIN, PENICILLIN, SULFA, ATENOLOL, HYDROCODONE, METOCLOPRAMIDE, NIAC IN, TRAMADOL, TRIAMTERENE, IBUPROFEN. Social History: The patient does not smoke. Drinks alcohol occasionally. Family History: Significant for hypertension, heart disease. Physical Examination: Vital Signs: Stable. She is afebrile. General: She is awake and alert. Head and Neck: No neck masses. No JVD. Throat clear. Neck is supple. Chest: Clear. Heart: S1, S2. Abdomen: Soft. Minimal tenderness in the right upper quadrant. No rebound, rigidity, or guarding, at this time. Extremities: Adequately perfused, nontender. Neuro: Nonfocal. Laboratory Data: White count is normal. There is no left shift. Chemistry reviewed. Her LFTs are within normal limits. Abdominal ultrasound reviewed and was negative. Please note, her troponin wa s within normal limits as well. Assessment: Lower chest and abdominal pain, etiology unclear at this time as ultrasound is negative and there is concern for biliary colic and a HIDA scan had been ordered. We will see what that shows and make further recommendation after that. The patient may need a GI workup as well as a CAT scan of the abdomen and pelvis, but I will discuss that with Dr. Love once the HIDA scan is completed. We will follow this patient while in the hospital. /MODL Voice ID: [id number] Report ID: [id number]
--- NOTE | 2025-02-14 12:15 | P.CNS ---
Date of Consult: 02/14/25 Chief Complaint: chest pain History of Present Illness: Patient with PMH of HTN, Obesity, chronic diastolic dysfunction, presented with RUQ pain and abdominal pain, report bulching alot and she developed mid chest pain, report chronic LEDBETTER, no other cardiac symptoms. Allergies atenolol Allergy (Verified 12/28/23 14:42) Hives bismuth subsalicylate Allergy (Verified 12/28/23 14:42) Hives hydrocodone Allergy (Verified 12/28/23 14:42) Hives ibuprofen Allergy (Verified 12/28/23 14:42) Hives isradipine Allergy (Verified 12/28/23 14:42) Hives metoclopramide Allergy (Verified 12/28/23 14:42) Hives niacin Allergy (Verified 12/28/23 14:42) Hives Penicillins Allergy (Verified 12/28/23 14:42) Hives Sulfa (Sulfonamide Antibiotics) Allergy (Verified 12/28/23 14:42) Hives sulfamethoxazole Allergy (Verified 12/28/23 14:42) Hives tramadol Allergy (Verified 12/28/23 14:42) Hives triamterene Allergy (Verified 12/28/23 14:42) Hives trimethoprim Allergy (Verified 12/28/23 14:42) Hives verapamil Allergy (Verified 12/28/23 14:42) Hives Home medications list reviewed: Yes Home Medications: Allopurinol 2 tab PO DAILY 04/18/24 Amlodipine [Norvasc] 5 mg PO DAILY 04/18/24 Atorvastatin Calcium 40 mg PO BEDTIME 04/18/24 Cholecalciferol (Vitamin D3) [Vitamin D 1000 Iu Tab*] 2,000 unit PO DAILY 04/18/24 Isosorbide Mononitrate [Isosorbide Mononitrate ER] 30 mg PO DAILY 04/18/24 Losartan Potassium 100 mg PO DAILY 04/18/24 Pantoprazole [Protonix Tab*] 1 tab PO [id number] 02/13/25 Spironolactone 25 mg PO DAILY 02/13/25 carvediloL [Carvedilol] 1 tab PO BID 02/13/25 - Past Medical/Surgical History Diabetic: No -: HTN -: Acid reflux -: Gout -: elevated cholesterol -: Pre diabetic -: Cataract removal RT and Lt eye -: Glaucoma - Social History Alcohol use: Yes CD- Drugs: No Caffeine use: No Place of Residence: Home Review of Systems 10-point ROS is otherwise unremarkable Physical Examination Temp Pulse Resp BP Pulse Ox 97.7 F 67 16 120/69 99 02/14/25 08:00 02/14/25 10:07 02/14/25 08:00 02/14/25 10:07 02/14/25 08:00 General: Alert, In no apparent distress HEENT: Atraumatic, PERRLA, Mucous membr. moist/pink, EOMI, Sclerae nonicteric Neck: Supple, 2+ carotid pulse no bruit, No LAD, Without JVD or thyroid abnormality Respiratory: Clear to auscultation bilaterally, Normal air movement Cardiovascular: Regular rate/rhythm, Normal S1 S2 Gastrointestinal: Normal bowel sounds, No tenderness Musculoskeletal: No tenderness Integumentary: No rashes Neurological: Normal gait, Normal speech, Normal tone, Normal affect Lymphatics: No axilla or inguinal lymphadenopathy Laboratory Data (last 24 hrs) 02/14/25 02/13/25 02/13/25 05:00 15:29 15:29 WBC 5.20 Hgb 13.3 Hct 39.7 Plt Count 189 Sodium 140 139 Potassium 4.2 3.8 BUN 15 23 H Creatinine 1.00 1.16 H Glucose 137 H 94 Magnesium 1.7 1.7 Total Bilirubin 0.5 AST < 10 L ALT 17 Alkaline Phosphatase 72 Lipase 42 - Problems (1) Chest pain Current Visit: Yes Status: Acute Plan: Patient chest pain is atypical, negative cardiac markers, patient had a coronary angiogram done recently that i reviewed again and shown normal coronaries. No further cardiac work up needed. (2) Chronic diastolic heart failure Current Visit: Yes Status: Acute Plan: patient looks euvolemic on exam, resume her outpatient medications. Monitor input and output and electrolytes. (3) HTN (hypertension) Current Visit: Yes Status: Acute Plan: continue home medications and monitor.
[2025-02-14 13:19] VITALS: O2SAT 98
--- NOTE | 2025-02-14 15:06 | RAD REPORT ---
EXAMINATION: NUCLEAR MEDICINE HIDA SCAN WITH GALLBLADDER EJECTION FRACTION CLINICAL INDICATION: Female, 69 years old. RUQ pain TECHNIQUE: Hepatobiliary imaging was acquired over the abdomen for 60 minutes following intravenous a dministration of radiotracer. Gallbladder ejection fraction determination was then performed utilizing synthetic 2.5 mgm CCK over a slow 30 minute infusion. RADIOPHARMACEUTICAL: 5.9 mCi Technetium 99m Mebrofenin. COMPARISON: No prior exams. FINDINGS: Normal hepatic uptake and excretion with appropriate clearance of background blood pool activity. Normal visualization of biliary and small bowel activity. Gallbladder visualizes within normal time limits. The calculated ejection fraction is 76% (normal greater than 35%). Subjective pain reported by the patient: Pre-procedure - none During or subsequent to synthetic CCK infusion - none IMPRESSION: Patient cystic duct and patent sphincter of Oddi. No delay in visualization of the gallbladder, biliary tree, or duodenum. Ejection fraction is 76% (normal greater than 35%). Subjective patient pain assessment as detailed above.
--- NOTE | 2025-02-14 19:04 | RAD REPORT ---
EXAMINATION: CT Abdomen Pelvis W Contrast CLINICAL INDICATION: Female, 69 years old. Abdominal pain TECHNIQUE: CT abdomen and pelvis was performed, after the administration of IV contrast, as per [facility] protocol. Axial, sagittal and coronal reconstructions were obtained. One or more of the following dose reduction techniques were used: Automated exposure control, adjustment of the mA and k V according to patient size, and iterative reconstruction. Unless otherwise specified, incidental findings do not require dedicated imaging follow-up. COMPARISON: No prior exam. FINDINGS: LOWER CHEST: The visualized lung bases are clear. LIVER: Normal in size and contour. No focal lesion. BILIARY SYSTEM: No suspicious abnormalities. SPLEEN: Normal size. No focal lesion. PANCREAS: No mass, ductal dilation, or daniel-pancreatic fluid. ADRENALS: Normal; no mass. KIDNEYS: Normal size and contour. Multiple cortical cystic lesions, largest at the right upper pole m easuring 9.7 cm, without suspicious features. No hydronephrosis. URINARY BLADDER: Unremarkable. GASTROINTESTINAL TRACT: No evidence of free air, significant intra-abdominal free fluid, bowel obstru ction or abscess. Mild scattered colonic diverticulosis APPENDIX: Normal appendix. LYMPH NODES: No lymphadenopathy. MUSCULOSKELETAL: No acute or suspicious osseous abnormality. ADDITIONAL FINDINGS: Retroverted uterus. Small umbilical hernia containing fat. IMPRESSION: No acute or concerning abnormalities seen in the abdomen or pelvis. Incidental findings as above.
[2025-02-14 19:54] VITALS: BP 135/74; TEMP 97.4
== END 2025-02-14 20:25 | disposition home or self-care (01) | DRG 313 ==
LOC: 4TH 14:06
PROVIDERS: ADMIT Internal Medicine; ATTEND Internal Medicine
DX: R07.89 Other chest pain (principal); I13.0 Hypertensive heart and chronic kidney disease with heart failure and stage 1 through stage 4 chronic kidney disease, or unspecified chronic kidney disease; I50.32 Chronic diastolic (congestive) heart failure; Z68.42 Body mass index [BMI] 45.0-49.9, adult; N18.31 Chronic kidney disease, stage 3a; E11.22 Type 2 diabetes mellitus with diabetic chronic kidney disease; M10.9 Gout, unspecified; E66.9 Obesity, unspecified; E78.5 Hyperlipidemia, unspecified; M19.09 Primary osteoarthritis, other specified site; K21.9 Gastro-esophageal reflux disease without esophagitis; Z88.6 Allergy status to analgesic agent; Z88.0 Allergy status to penicillin; Z88.2 Allergy status to sulfonamides; Z88.5 Allergy status to narcotic agent; Z88.8 Allergy status to other drugs, medicaments and biological substances; Z79.899 Other long term (current) drug therapy
CPT/HCPCS: 36415; 71046; 74177; 76700; 78227; 80048; 80053; 83690; 83735; 84443; 84484; 85025; 93005; A9537; J1650; J2805; J3475; J7042; Q9967